=== PATIENT | female | born 1945 | race African-American/Black ===

== ENCOUNTER 2016-11-04 16:17 | Emergency (ER) | payer MEDICARE, MEDICAID ==
[~2016-11-04] VITALS: Ht 165.1 cm; Wt 60.0 kg
[~2016-11-04 16:17] MED LIST: ALEN70TA13; ASPI-292; ATAZ300C2; CALC-696; CHOL100022; EMTR1TAB4; LISI40TA4; METO25TA3; NORV1; OLAN10TA3; OMEG500C4; TEMA30CA5
[2016-11-04 16:23] VITALS: BP 120/90
== END 2016-11-04 19:34 | disposition home or self-care (01) ==
LOC: ER 16:18
DX: K64.4 Residual hemorrhoidal skin tags (principal); I10 Essential (primary) hypertension; Z20.6 Contact with and (suspected) exposure to human immunodeficiency virus [HIV]; Z88.0 Allergy status to penicillin
CPT/HCPCS: 99283

== ENCOUNTER 2016-12-14 07:25 | Emergency (ER) | payer MEDICARE, MEDICAID ==
[~2016-12-14] VITALS: Ht 160 cm; Wt 64.0 kg
[~2016-12-14 07:25] MED LIST changes: -ALEN70TA13; +ALEN70TA46; +ASPI-1236; -ASPI-292; +DESCOVY PO; +GABA-531 PO; +OLAN5TAB26 PO; +[UNRECOGNIZED DRUG - OTHER] PO
[2016-12-14 08:46] VITALS: BP 120/86
== END 2016-12-14 10:42 | disposition home or self-care (01) ==
LOC: ER 07:26
DX: K91.841 Postprocedural hemorrhage of a digestive system organ or structure following other procedure (principal); Y83.8 Other surgical procedures as the cause of abnormal reaction of the patient, or of later complication, without mention of misadventure at the time of the procedure; Y73.8 Miscellaneous gastroenterology and urology devices associated with adverse incidents, not elsewhere classified; Y92.098 Other place in other non-institutional residence as the place of occurrence of the external cause; I10 Essential (primary) hypertension; Z88.0 Allergy status to penicillin
CPT/HCPCS: 99283

== ENCOUNTER 2016-12-18 10:47 | Emergency (ER) | payer MEDICARE, MEDICAID ==
[~2016-12-18] VITALS: Ht 157.5 cm; Wt 50.0 kg
[2016-12-18 16:14] LABS: BASOPHILS % 0.9 % (0.0-2.0); EOSINOPHILS % 1.4 % (0.0-5.0); HEMATOCRIT. 32.4 % (36.0-48.0); HEMOGLOBIN. 10.1 g/dL (12.0-16.0); MEAN CORPUSCULAR HEMOGLOBIN 25.3 pg (28.0-32.0); MEAN CORPUSCULAR VOLUME 81.2 fL (81.0-99.0); MONOCYTES % 8.7 % (2.0-8.0); PLATELET 216 x1000/uL (130-400); RED BLOOD CELL COUNT 3.99 mill/uL (4.2-5.4); RED CELL DISTRIBUTION WIDTH 18.1 % (11.6-14.6)
[2016-12-18 16:25] LABS: CARBON DIOXIDE 28 mEq/L (21-32); CHLORIDE 108 mEq/L (98-107)
[2016-12-18 19:01] VITALS: BP 132/80
== END 2016-12-18 19:35 | disposition home or self-care (01) ==
LOC: ER 10:48
DX: K62.89 Other specified diseases of anus and rectum (principal); Z88.0 Allergy status to penicillin; I10 Essential (primary) hypertension; Z79.899 Other long term (current) drug therapy
CPT/HCPCS: 36415; 80048; 85025; 99284

== ENCOUNTER 2016-12-24 08:15 | Inpatient (IN) | payer MEDICARE, MEDICAID ==
[~2016-12-24] VITALS: Ht 165.1 cm; Wt 56.2 kg
[~2016-12-24 08:15] MED LIST changes: -ASPI-1236; +ASPI-1236 PO; -TEMA30CA5; +TEMA30CA5 PO
[2016-12-24] MEDS ORDERED: ACETAMINOPHEN 325MG TABLET PO ONE (08:30)
[2016-12-24 10:23] LABS: HEMOGLOBIN. 10.1 g/dL (12.0-16.0); MEAN CORPUSCULAR HEMOGLOBIN 25.6 pg (28.0-32.0); MEAN CORPUSCULAR VOLUME 81.1 fL (81.0-99.0); MEAN PLATELET VOLUME 7.9 fl (7.4-10.4); PLATELET 198 x1000/uL (130-400); RED BLOOD CELL COUNT 3.94 mill/uL (4.2-5.4); RED CELL DISTRIBUTION WIDTH 18.6 % (11.6-14.6)
[2016-12-24 10:37] LABS: CARBON DIOXIDE 29 mEq/L (21-32); CHLORIDE 108 mEq/L (98-107)
[2016-12-24 10:49] LABS: PLATELET ESTIMATE NORMAL
[2016-12-24] MEDS ORDERED: FUROSEMIDE 40MG/4ML VIAL IVP ONE (11:00)
[2016-12-24 15:40] VITALS: BP 124/82
[2016-12-24] MEDS ORDERED: DOCUSATE SODIUM 100MG CAPSULE PO PRN (16:45)
[2016-12-24] MEDS ORDERED: ONDANSETRON HCL 4MG/2ML VIAL IV PRN (16:45)
[2016-12-24] MEDS ORDERED: ACETAMINOPHEN 325MG TABLET PO PRN (16:45)
[2016-12-24] MEDS ORDERED: HYDROCODONE/ACETAMINOPHEN 5/325MG TABLET PO PRN (16:45)
[2016-12-24] MEDS ORDERED: GUAIFENESIN 200MG/10ML SUGAR FREE UDC PO PRN (16:45)
[2016-12-24] MEDS ORDERED: CLONIDINE 0.1MG TABLET PO PRN (16:45)
[2016-12-24 17:03] VITALS: BP 131/98
[2016-12-24] MEDS: FUROSEMIDE 40MG/4ML VIAL IV SCH (18:43)
[2016-12-24 20:00] VITALS: BP 127/103
[2016-12-25] VITALS: BP 122/98
[2016-12-25 04:00] VITALS: BP 127/103
[2016-12-25 06:56] LABS: BASOPHILS % 0.4 % (0.0-2.0); EOSINOPHILS % 1.5 % (0.0-5.0); HEMATOCRIT. 32.3 % (36.0-48.0); HEMOGLOBIN. 10.4 g/dL (12.0-16.0); LYMPHOCYTES % 40.1 % (20.0-50.0); MEAN CORPUSCULAR HEMOGLOBIN 25.9 pg (28.0-32.0); MEAN CORPUSCULAR VOLUME 80.4 fL (81.0-99.0); MEAN PLATELET VOLUME 7.9 fl (7.4-10.4); PLATELET 198 x1000/uL (130-400); RED BLOOD CELL COUNT 4.01 mill/uL (4.2-5.4)
[2016-12-25 08:06] LABS: CARBON DIOXIDE 32 mEq/L (21-32); CHLORIDE 105 mEq/L (98-107)
[2016-12-25 08:30] VITALS: BP 120/105
[2016-12-25] MEDS ORDERED: POTASSIUM CHLORIDE 20MEQ TABLET SR PO SCH (10:15)
[2016-12-25] MEDS: ASPIRIN 81MG EC TABLET PO SCH (10:39)
[2016-12-25] MEDS: AMLODIPINE 10MG TABLET PO SCH (10:39)
[2016-12-25] MEDS: FUROSEMIDE 40MG/4ML VIAL IV SCH (10:39)
[2016-12-25 12:00] VITALS: BP 118/96
[2016-12-25] MEDS ORDERED: DILTIAZEM HCL 5MG/ML 5ML VIAL IV SCH (13:30)
[2016-12-25 13:38] LABS: T4 FREE 1.47 ng/dL (0.76-1.46)
[2016-12-25] MEDS: DILTIAZEM HCL 125 MG in DEXT 5% WATER 100 ML IV SCH (14:25)
[2016-12-25] MEDS ORDERED: ALBUTEROL (0.083%) 2.5MG/3ML NEB HHN PRN (14:45)
[2016-12-25] MEDS ORDERED: MAGNESIUM 2 G PREMIX 50 ML IV NR (16:00)
[2016-12-25 18:13] LABS: HEPATITIS B SURFACE ANTIGEN NEGATIVE
[2016-12-25 18:41] LABS: HEPATITIS B CORE AB IGM NEGATIVE
[2016-12-25 18:42] LABS: HEPATITIS A AB IGM NEGATIVE (NEGATIVE)
[2016-12-25] MEDS: DILTIAZEM HCL 30MG TABLET PO SCH (19:01)
[2016-12-25 20:00] VITALS: BP 103/67
[2016-12-25] MEDS ORDERED: LORAZEPAM 2MG/ML CPJ IM PRN (21:00)
[2016-12-25 22:00] VITALS: BP 93/57
[2016-12-26] VITALS (12 sets, daily range): BP systolic 83–125; BP diastolic 53–82
[2016-12-26] MEDS ORDERED: LORAZEPAM 2MG/ML CPJ IV PRN (00:45)
[2016-12-26] MEDS: DILTIAZEM HCL 125 MG in DEXT 5% WATER 100 ML IV SCH (00:50)
[2016-12-26 03:22] LABS: CLARITY URINE CLEAR (CLEAR); COLOR URINE DARK YELLOW (YELLOW); GLUCOSE URINE NEGATIVE (NEGATIVE); KETONES URINE TRACE (NEGATIVE); LEUKOCYTE ESTERASE URINE 2+ (NEGATIVE); NITRITE URINE NEGATIVE (NEGATIVE); OCCULT BLOOD URINE NEGATIVE (NEGATIVE); PH URINE 5.5 (4.5-8.0); PROTEIN URINE 1+ (NEGATIVE); SPECIFIC GRAVITY URINE 1.026 (1.005-1.030)
[2016-12-26 03:41] LABS: *AMPHETAMINES SCREEN URINE NEGATIVE (NEGATIVE); *BARBITURATES SCREEN URINE NEGATIVE (NEGATIVE); *BENZODIAZEPINES SCREEN URINE PRESUMTIVE POSITIVE (NEGATIVE); *COCAINE SCREEN URINE PRESUMTIVE POSITIVE (NEGATIVE); CANNABINOID URINE SCREEN NEGATIVE (NEGATIVE); METHADONE URINE SCREEN NEGATIVE (NEGATIVE); OPIATES URINE SCREEN NEGATIVE (NEGATIVE); PHENCYCLIDINE URINE SCREEN NEGATIVE (NEGATIVE)
[2016-12-26 05:59] LABS: BASOPHILS % 0.3 % (0.0-2.0); EOSINOPHILS % 0.7 % (0.0-5.0); HEMATOCRIT. 31.3 % (36.0-48.0); HEMOGLOBIN. 9.9 g/dL (12.0-16.0); LYMPHOCYTES % 35.3 % (20.0-50.0); MEAN CORPUSCULAR HEMOGLOBIN 25.3 pg (28.0-32.0); MEAN CORPUSCULAR VOLUME 79.9 fL (81.0-99.0); MEAN PLATELET VOLUME 7.9 fl (7.4-10.4); MONOCYTES % 11.5 % (2.0-8.0); NEUTROPHILS % 52.2 % (40.0-76.0); PLATELET 184 x1000/uL (130-400); RED BLOOD CELL COUNT 3.92 mill/uL (4.2-5.4); RED CELL DISTRIBUTION WIDTH 17.8 % (11.6-14.6)
[2016-12-26] MEDS: DILTIAZEM HCL 30MG TABLET PO SCH ×2 (06:00)
[2016-12-26 06:46] LABS: CHLORIDE 106 mEq/L (98-107)
[2016-12-26 07:04] LABS: CARBON DIOXIDE 28 mEq/L (21-32); TROPONIN I 0.06 ng/mL (0.00-0.04)
[2016-12-26] MEDS: AMLODIPINE 10MG TABLET PO SCH (09:00)
[2016-12-26] MEDS: ASPIRIN 81MG EC TABLET PO SCH (09:32)
[2016-12-26] MEDS: FUROSEMIDE 40MG/4ML VIAL IV SCH (09:32)
[2016-12-26] MEDS ORDERED: DILTIAZEM HCL 125 MG in DEXT 5% WATER 100 ML IV SCH (09:41)
[2016-12-26] MEDS ORDERED: POTASSIUM CHLORIDE 20MEQ TABLET SR PO SCH (09:45)
[2016-12-26] MEDS: MAGNESIUM OXIDE 400MG TABLET PO SCH ×2 (10:07→17:11)
[2016-12-26] MEDS: DILTIAZEM HCL 60MG TABLET PO SCH ×2 (11:41→17:12)
[2016-12-26] MEDS: ZOLPIDEM TARTRATE 5MG TABLET PO PRN (23:02)
[2016-12-27] VITALS (15 sets, daily range): BP systolic 98–138; BP diastolic 34–96
[2016-12-27] MEDS: DILTIAZEM HCL 60MG TABLET PO SCH ×2 (00:02→06:20)
[2016-12-27 07:20] LABS: CARBON DIOXIDE 31 mEq/L (21-32); CHLORIDE 106 mEq/L (98-107)
[2016-12-27 08:09] LABS: BASOPHILS % 0.5 % (0.0-2.0); EOSINOPHILS % 1.1 % (0.0-5.0); HEMATOCRIT. 31.3 % (36.0-48.0); HEMOGLOBIN. 10.2 g/dL (12.0-16.0); LYMPHOCYTES % 36.2 % (20.0-50.0); MEAN CORPUSCULAR HEMOGLOBIN 26.8 pg (28.0-32.0); MEAN CORPUSCULAR VOLUME 82.1 fL (81.0-99.0); MONOCYTES % 13.3 % (2.0-8.0); NEUTROPHILS % 48.9 % (40.0-76.0); PLATELET 188 x1000/uL (130-400); RED BLOOD CELL COUNT 3.81 mill/uL (4.2-5.4); RED CELL DISTRIBUTION WIDTH 18.2 % (11.6-14.6)
[2016-12-27] MEDS: MAGNESIUM OXIDE 400MG TABLET PO SCH ×2 (08:46→17:05)
[2016-12-27] MEDS: FUROSEMIDE 40MG/4ML VIAL IV SCH (08:46)
[2016-12-27] MEDS: ASPIRIN 81MG EC TABLET PO SCH (08:46)
[2016-12-27] MEDS: AMLODIPINE 10MG TABLET PO SCH (08:48)
[2016-12-27 09:06] LABS: ABSOLUTE EOSINOPHILS 0.1 x10E3/uL (0.0-0.4); ABSOLUTE LYMPHOCYTES 2.2 x10E3/uL (0.7-3.1); ABSOLUTE MONOCYTES 0.7 x10E3/uL (0.1-0.9); ABSOLUTE NEUTROPHILS 3.3 x10E3/uL (1.4-7.0); BASOPHILS 0 % (.); HEMATOCRIT 32.3 % (34.0-46.6); HEMOGLOBIN 9.9 g/dL (11.1-15.9); IMMATURE GRANULOCYTES 0 % (.); LYMPHOCYTES 35 % (.); MEAN CORPUSCULAR HEMOGLOBIN 25.6 pg (26.6-33.0); MEAN CORPUSCULAR HGB CONC. 30.7 g/dL (31.5-35.7); MEAN CORPUSCULAR VOLUME 84 fL (79-97); MONOCYTES 11 % (.); NEUTROPHILS 53 % (.); PLATELETS 204 x10E3/uL (150-379); RBC 3.87 x10E6/uL (3.77-5.28); RED CELL DISTRIBUTION WIDTH 17.8 % (12.3-15.4); WBC 6.2 x10E3/uL (3.4-10.8)
[2016-12-27] MEDS ORDERED: POTASSIUM CHLORIDE 20MEQ TABLET SR PO NR (11:45)
[2016-12-27] MEDS: LOSARTAN POTASSIUM 25 MG TABLET PO SCH ×2 (12:21→21:26)
[2016-12-27 13:07] LABS: ABSOLUTE CD 3 1892 /uL (622-2402); ABSOLUTE CD 4 HELPER 682 /uL (359-1519); ABSOLUTE CD 8 SUPPRESSOR 1232 /uL (109-897); CD4/CD8 RATIO 0.55 (0.92-3.72)
[2016-12-27] MEDS: POTASSIUM CHLORIDE 20MEQ TABLET SR PO SCH (17:05)
[2016-12-27] MEDS: ENOXAPARIN 40MG/0.4ML SYR SUBCUT SCH (21:25)
[2016-12-27] MEDS: DILTIAZEM HCL 120MG CAPSULE SR 12HR PO SCH (21:26)
[2016-12-27] MEDS: ZOLPIDEM TARTRATE 5MG TABLET PO PRN (23:09)
[2016-12-28] VITALS (11 sets, daily range): BP systolic 87–154; BP diastolic 53–100
[2016-12-28] MEDS ORDERED: LOPERAMIDE HCL 2MG CAPSULE PO PRN (07:30)
[2016-12-28] MEDS: DILTIAZEM HCL 120MG CAPSULE SR 12HR PO SCH (08:13)
[2016-12-28] MEDS: LOSARTAN POTASSIUM 25 MG TABLET PO SCH (08:13)
[2016-12-28] MEDS: POTASSIUM CHLORIDE 20MEQ TABLET SR PO SCH (08:13)
[2016-12-28] MEDS: ASPIRIN 81MG EC TABLET PO SCH (08:13)
[2016-12-28] MEDS: ENOXAPARIN 40MG/0.4ML SYR SUBCUT SCH (08:14)
[2016-12-28] MEDS: MAGNESIUM OXIDE 400MG TABLET PO SCH (08:14)
[2016-12-28] MEDS ORDERED: FUROSEMIDE 40MG TABLET PO SCH (09:00)
[2016-12-28] MEDS ORDERED: POTASSIUM CHLORIDE 20MEQ TABLET SR PO NR (11:00)
[2016-12-28] MEDS ORDERED: DILT120C11 PO (12:10)
[2016-12-28] MEDS ORDERED: LOSA25TA3 PO (12:11)
[2016-12-28] MEDS ORDERED: MAGN400T27 PO (12:12)
[2016-12-28] MEDS ORDERED: DILT120C11 MT (12:14)
[2016-12-28] MEDS ORDERED: FURO-151 PO (12:14)
[2016-12-28] MEDS ORDERED: KDUR10 PO (12:15)
[2016-12-28] MEDS ORDERED: RIVA10TA PO (12:16)
== END 2016-12-28 14:49 | disposition home or self-care (01) | DRG 291 ==
LOC: ER 08:17 → 5WST 11:53 → EDBEDREQ 11:54 → ENRESERV 12:00 → 3WST 12-25 14:00
PROVIDERS: ADMIT Hospitalist; ATTEND Hospitalist
DX: I11.0 Hypertensive heart disease with heart failure (principal); J96.00 Acute respiratory failure, unspecified whether with hypoxia or hypercapnia; E43 Unspecified severe protein-calorie malnutrition; I48.92 Unspecified atrial flutter; I50.23 Acute on chronic systolic (congestive) heart failure; I42.0 Dilated cardiomyopathy; B18.2 Chronic viral hepatitis C; E83.42 Hypomagnesemia; E87.6 Hypokalemia; F14.10 Cocaine abuse, uncomplicated; F17.210 Nicotine dependence, cigarettes, uncomplicated; W18.39XA Other fall on same level, initial encounter; I48.0 Paroxysmal atrial fibrillation; I49.3 Ventricular premature depolarization; J44.9 Chronic obstructive pulmonary disease, unspecified; Z82.49 Family history of ischemic heart disease and other diseases of the circulatory system; Z91.19 Patient's noncompliance with other medical treatment and regimen; Y93.89 Activity, other specified; Y92.89 Other specified places as the place of occurrence of the external cause; Y99.8 Other external cause status; Z88.0 Allergy status to penicillin; Z79.899 Other long term (current) drug therapy
CPT/HCPCS: 36415; 71010; 73630; 80048; 80053; 80305; 81001; 83735; 83880; 84439; 84443; 84481; 84484; 85025; 86359; 86360; 86705; 86709; 86803; 87186; 87340; 93005; 93306; 93970; 96374; 99285; J1650; J1940; J2060; J3475; J3490; J7060

== ENCOUNTER 2016-12-31 00:40 | Inpatient (IN) | payer MEDICARE, MEDICAID ==
[2016-12-31] VITALS (7 sets, daily range): BP systolic 89–107; BP diastolic 65–92
[~2016-12-31] VITALS: Ht 170.2 cm; Wt 56.4 kg
[~2016-12-31 00:40] MED LIST changes: +DILT120C11 MT; +FURO-151 PO; +KDUR10 PO; +LOSA25TA3 PO; +MAGN400T27 PO; -METO25TA3; +RIVA10TA PO
[2016-12-31] MEDS ORDERED: MORPHINE SULFATE 4 MG/ML CPJ (NOT FOR IM USE) IV STA (01:30)
[2016-12-31] MEDS ORDERED: ONDANSETRON HCL 4MG/2ML VIAL IV STA (01:30)
[2016-12-31 01:51] LABS: EOSINOPHILS % 0.9 % (0.0-5.0); HEMOGLOBIN. 9.5 g/dL (12.0-16.0); LYMPHOCYTES % 30.3 % (20.0-50.0); MEAN CORPUSCULAR HEMOGLOBIN 25.6 pg (28.0-32.0); MEAN CORPUSCULAR VOLUME 80.7 fL (81.0-99.0); MEAN PLATELET VOLUME 7.9 fl (7.4-10.4); MONOCYTES % 6.8 % (2.0-8.0); PLATELET 162 x1000/uL (130-400); RED BLOOD CELL COUNT 3.72 mill/uL (4.2-5.4); RED CELL DISTRIBUTION WIDTH 17.9 % (11.6-14.6)
[2016-12-31 01:58] LABS: INR 1.2
[2016-12-31 02:07] LABS: CARBON DIOXIDE 27 mEq/L (21-32); CHLORIDE 110 mEq/L (98-107); TROPONIN I 0.04 ng/mL (0.00-0.04)
[2016-12-31] MEDS ORDERED: NITROGLYCERIN OINT 1GM/INCH UDPKT TD STA (04:27)
[2016-12-31] MEDS ORDERED: ASPIRIN 81MG TABLET PO STA (04:27)
[2016-12-31] MEDS ORDERED: FUROSEMIDE 40MG/4ML VIAL IV STA (04:27)
[2016-12-31 04:44] LABS: CLARITY URINE CLEAR (CLEAR); COLOR URINE YELLOW (YELLOW); GLUCOSE URINE NEGATIVE (NEGATIVE); KETONES URINE NEGATIVE (NEGATIVE); LEUKOCYTE ESTERASE URINE 2+ (NEGATIVE); NITRITE URINE NEGATIVE (NEGATIVE); OCCULT BLOOD URINE NEGATIVE (NEGATIVE); PH URINE 5.5 (4.5-8.0); PROTEIN URINE 2+ (NEGATIVE)
[2016-12-31] MEDS ORDERED: ACETAMINOPHEN 325MG TABLET PO PRN (09:45)
[2016-12-31] MEDS ORDERED: DOCUSATE SODIUM 100MG CAPSULE PO PRN (09:45)
[2016-12-31] MEDS ORDERED: ONDANSETRON HCL 4MG/2ML VIAL IV PRN (09:45)
[2016-12-31] MEDS ORDERED: IPRATROPIUM BROMIDE (0.02%) 0.5MG/2.5ML NEB HHN PRN (09:45)
[2016-12-31] MEDS: OMEPRAZOLE 20MG CAPSULE EXTENDED RELEASE PO SCH (11:00)
[2016-12-31] MEDS ORDERED: MORPHINE SULFATE 2 MG/ML CPJ (NOT FOR IM USE) IV PRN (12:00)
[2016-12-31] MEDS ORDERED: IOHEXOL-350 100 ML BOTTLE ONE (14:32)
[2016-12-31] MEDS ORDERED: SODIUM CHLORIDE 0.9% 10ML VIAL ONE (14:32)
[2016-12-31 14:47] LABS: *AMPHETAMINES SCREEN URINE NEGATIVE (NEGATIVE); *BARBITURATES SCREEN URINE NEGATIVE (NEGATIVE); *BENZODIAZEPINES SCREEN URINE NEGATIVE (NEGATIVE); *COCAINE SCREEN URINE PRESUMTIVE POSITIVE (NEGATIVE); CANNABINOID URINE SCREEN NEGATIVE (NEGATIVE); METHADONE URINE SCREEN NEGATIVE (NEGATIVE); OPIATES URINE SCREEN PRESUMTIVE POSITIVE (NEGATIVE); PHENCYCLIDINE URINE SCREEN NEGATIVE (NEGATIVE)
[2016-12-31] MEDS ORDERED: DIGOXIN 500MCG/2ML AMP IV NR (15:30)
[2016-12-31] MEDS: ENOXAPARIN 60MG/0.6ML SYR SUBCUT SCH (16:45)
[2016-12-31] MEDS: FUROSEMIDE 40MG/4ML VIAL IV SCH (16:45)
[2016-12-31] MEDS: DILTIAZEM HCL 30MG TABLET PO SCH ×2 (17:00→23:23)
[2016-12-31] MEDS: ZOLPIDEM TARTRATE 5MG TABLET PO PRN (23:36)
[2017-01-01] VITALS (9 sets, daily range): BP systolic 69–106; BP diastolic 40–78
[2017-01-01] MEDS: DILTIAZEM HCL 30MG TABLET PO SCH ×3 (05:56→17:06)
[2017-01-01 06:54] LABS: BASOPHILS % 0.3 % (0.0-2.0); EOSINOPHILS % 1.4 % (0.0-5.0); HEMOGLOBIN. 9.6 g/dL (12.0-16.0); LYMPHOCYTES % 17.4 % (20.0-50.0); MEAN CORPUSCULAR HEMOGLOBIN 25.7 pg (28.0-32.0); MEAN CORPUSCULAR VOLUME 80.2 fL (81.0-99.0); MEAN PLATELET VOLUME 8.2 fl (7.4-10.4); MONOCYTES % 3.3 % (2.0-8.0); NEUTROPHILS % 77.6 % (40.0-76.0); PLATELET 165 x1000/uL (130-400); RED BLOOD CELL COUNT 3.74 mill/uL (4.2-5.4); RED CELL DISTRIBUTION WIDTH 17.1 % (11.6-14.6)
[2017-01-01 07:13] LABS: CARBON DIOXIDE 28 mEq/L (21-32); CHLORIDE 103 mEq/L (98-107)
[2017-01-01] MEDS: ENOXAPARIN 60MG/0.6ML SYR SUBCUT SCH ×2 (07:46→17:06)
[2017-01-01] MEDS: OMEPRAZOLE 20MG CAPSULE EXTENDED RELEASE PO SCH (07:46)
[2017-01-01] MEDS: FUROSEMIDE 40MG/4ML VIAL IV SCH ×2 (08:14→16:53)
[2017-01-01] MEDS: IPRATROPIUM BROMIDE (0.02%) 0.5MG/2.5ML NEB HHN SCH ×3 (09:31→21:22)
[2017-01-01] MEDS ORDERED: POTASSIUM CHLORIDE 20MEQ TABLET SR PO NR (10:15)
[2017-01-01] MEDS ORDERED: MAGNESIUM 2 G PREMIX 50 ML IV SCH (11:00)
[2017-01-01] MEDS ORDERED: DIPHENHYDRAMINE 25MG CAPSULE PO PRN (21:45)
[2017-01-02] VITALS: BP 95/73
[2017-01-02] MEDS: IPRATROPIUM BROMIDE (0.02%) 0.5MG/2.5ML NEB HHN SCH ×4 (00:31→20:20)
[2017-01-02] MEDS: ZOLPIDEM TARTRATE 5MG TABLET PO PRN ×2 (00:39→23:03)
[2017-01-02 04:00] VITALS: BP 113/67
[2017-01-02] MEDS: DILTIAZEM HCL 30MG TABLET PO SCH ×4 (05:31→17:13)
[2017-01-02] MEDS: ENOXAPARIN 60MG/0.6ML SYR SUBCUT SCH ×2 (05:43→17:12)
[2017-01-02 06:05] LABS: BASOPHILS % 0.2 % (0.0-2.0); EOSINOPHILS % 2.1 % (0.0-5.0); HEMATOCRIT. 29.6 % (36.0-48.0); HEMOGLOBIN. 9.5 g/dL (12.0-16.0); LYMPHOCYTES % 24.8 % (20.0-50.0); MEAN CORPUSCULAR HEMOGLOBIN 25.4 pg (28.0-32.0); MEAN CORPUSCULAR VOLUME 79.2 fL (81.0-99.0); MEAN PLATELET VOLUME 8.2 fl (7.4-10.4); MONOCYTES % 6.3 % (2.0-8.0); NEUTROPHILS % 66.6 % (40.0-76.0); PLATELET 170 x1000/uL (130-400); RED BLOOD CELL COUNT 3.73 mill/uL (4.2-5.4); RED CELL DISTRIBUTION WIDTH 16.7 % (11.6-14.6)
[2017-01-02 08:00] VITALS: BP 114/92
[2017-01-02] MEDS: OMEPRAZOLE 20MG CAPSULE EXTENDED RELEASE PO SCH (08:38)
[2017-01-02] MEDS: FUROSEMIDE 40MG/4ML VIAL IV SCH ×2 (09:45→17:12)
[2017-01-02] MEDS ORDERED: POTASSIUM CHLORIDE 20MEQ TABLET SR PO NR (09:45)
[2017-01-02] MEDS ORDERED: MAGNESIUM 1 G PREMIX 100 ML IV NR (11:30)
[2017-01-02 12:00] VITALS: BP 112/89
[2017-01-02 16:00] VITALS: BP 114/58
[2017-01-02 20:00] VITALS: BP 104/81
[2017-01-03] VITALS: BP 111/88
[2017-01-03 00:09] VITALS: BP 111/88
[2017-01-03] MEDS: DILTIAZEM HCL 30MG TABLET PO SCH ×2 (00:19→06:13)
[2017-01-03] MEDS: IPRATROPIUM BROMIDE (0.02%) 0.5MG/2.5ML NEB HHN SCH ×2 (02:14→08:55)
[2017-01-03 04:00] VITALS: BP 120/87
[2017-01-03] MEDS: ENOXAPARIN 60MG/0.6ML SYR SUBCUT SCH (06:13)
[2017-01-03 06:25] LABS: BASOPHILS % 0.5 % (0.0-2.0); EOSINOPHILS % 1.7 % (0.0-5.0); HEMATOCRIT. 30.8 % (36.0-48.0); HEMOGLOBIN. 9.9 g/dL (12.0-16.0); LYMPHOCYTES % 31.4 % (20.0-50.0); MEAN CORPUSCULAR HEMOGLOBIN 25.6 pg (28.0-32.0); MEAN CORPUSCULAR VOLUME 79.5 fL (81.0-99.0); MEAN PLATELET VOLUME 8.2 fl (7.4-10.4); MONOCYTES % 8.8 % (2.0-8.0); NEUTROPHILS % 57.6 % (40.0-76.0); PLATELET 173 x1000/uL (130-400); RED BLOOD CELL COUNT 3.87 mill/uL (4.2-5.4); RED CELL DISTRIBUTION WIDTH 17.1 % (11.6-14.6)
[2017-01-03 07:19] LABS: CARBON DIOXIDE 30 mEq/L (21-32); CHLORIDE 103 mEq/L (98-107)
[2017-01-03 08:00] VITALS: BP 120/84
[2017-01-03] MEDS: FUROSEMIDE 40MG/4ML VIAL IV SCH (08:37)
[2017-01-03] MEDS ORDERED: FAMOTIDINE 20MG TABLET PO SCH (09:00)
[2017-01-03] MEDS ORDERED: POTASSIUM CHLORIDE 20MEQ TABLET SR PO NR (10:45)
[2017-01-03 11:40] VITALS: BP 120/84
[2017-01-03 12:00] VITALS: BP 125/95
== END 2017-01-03 14:50 | disposition home health service (06) | DRG 291 ==
LOC: ER 00:45 → 5EST 05:51 → SUPCPDRO 09:00 → ENRESERV 10:02 → 7WST 01-01 15:22
PROVIDERS: ADMIT Family Medicine Adult Medicine; ATTEND Family Medicine Adult Medicine
DX: I11.0 Hypertensive heart disease with heart failure (principal); E43 Unspecified severe protein-calorie malnutrition; J96.00 Acute respiratory failure, unspecified whether with hypoxia or hypercapnia; J44.1 Chronic obstructive pulmonary disease with (acute) exacerbation; I48.92 Unspecified atrial flutter; J84.9 Interstitial pulmonary disease, unspecified; R18.8 Other ascites; Z68.1 Body mass index [BMI] 19.9 or less, adult; I50.23 Acute on chronic systolic (congestive) heart failure; I42.0 Dilated cardiomyopathy; I48.0 Paroxysmal atrial fibrillation; I49.3 Ventricular premature depolarization; B19.20 Unspecified viral hepatitis C without hepatic coma; F14.90 Cocaine use, unspecified, uncomplicated; E78.5 Hyperlipidemia, unspecified; E83.42 Hypomagnesemia; E87.6 Hypokalemia; F10.10 Alcohol abuse, uncomplicated; F17.210 Nicotine dependence, cigarettes, uncomplicated; I34.0 Nonrheumatic mitral (valve) insufficiency; K80.20 Calculus of gallbladder without cholecystitis without obstruction; N28.1 Cyst of kidney, acquired; Z91.19 Patient's noncompliance with other medical treatment and regimen; Z71.6 Tobacco abuse counseling; Z88.0 Allergy status to penicillin; Z79.899 Other long term (current) drug therapy; Z21 Asymptomatic human immunodeficiency virus [HIV] infection status
CPT/HCPCS: 36415; 71010; 71275; 74177; 80048; 80053; 80305; 81001; 83690; 83735; 83880; 84443; 84484; 85025; 85610; 85730; 87086; 87493; 93005; 93970; 94640; 96374; 96375; 97162; 99285; A4216; G0482; J1160; J1650; J1940; J2270; J2405; J3475; J7040; J7050; Q0163; Q9967

== ENCOUNTER 2017-01-08 18:47 | Inpatient (IN) | payer MEDICARE, MEDICAID ==
[~2017-01-08] VITALS: Ht 170.2 cm; Wt 59.4 kg
[~2017-01-08 18:47] MED LIST changes: -DESCOVY PO; -[UNRECOGNIZED DRUG - OTHER] PO
[2017-01-08 18:51] VITALS: BP 98/68
[2017-01-08] MEDS ORDERED: NON FORMULARY PATIENT HOME MED EA XX SCH (19:15)
[2017-01-08] MEDS ORDERED: IPRATROPIUM/ALBUTEROL 0.5-3(2.5)MG/3ML NEB HHN PRN (19:15)
[2017-01-08] MEDS ORDERED: ALENDRONATE SODIUM 35MG TABLET PO SCH (19:15)
[2017-01-08] MEDS ORDERED: ONDANSETRON HCL 4MG/2ML VIAL IV PRN (19:45)
[2017-01-08] MEDS ORDERED: HYDROCODONE/ACETAMINOPHEN 5/325MG TABLET PO PRN (19:45)
[2017-01-08] MEDS ORDERED: ACETAMINOPHEN 325MG TABLET PO PRN (19:45)
[2017-01-08 20:00] VITALS: BP 106/67
[2017-01-08 20:24] VITALS: BP 106/67
[2017-01-08] MEDS: LOSARTAN POTASSIUM 25 MG TABLET PO SCH (21:00)
[2017-01-08] MEDS: TEMAZEPAM 15MG CAPSULE PO PRN (23:39)
[2017-01-09 01:02] VITALS: BP 97/77
[2017-01-09 04:00] VITALS: BP 106/86
[2017-01-09 06:16] LABS: BASOPHILS % 0.6 % (0.0-2.0); EOSINOPHILS % 1.4 % (0.0-5.0); HEMATOCRIT. 29.1 % (36.0-48.0); HEMOGLOBIN. 9.4 g/dL (12.0-16.0); LYMPHOCYTES % 28.1 % (20.0-50.0); MEAN CORPUSCULAR HEMOGLOBIN 25.4 pg (28.0-32.0); MEAN CORPUSCULAR VOLUME 79.1 fL (81.0-99.0); MONOCYTES % 7.8 % (2.0-8.0); NEUTROPHILS % 62.1 % (40.0-76.0); PLATELET 201 x1000/uL (130-400); RED BLOOD CELL COUNT 3.68 mill/uL (4.2-5.4); RED CELL DISTRIBUTION WIDTH 16.4 % (11.6-14.6)
[2017-01-09 07:53] VITALS: BP 97/71
[2017-01-09 08:03] LABS: CARBON DIOXIDE 32 mEq/L (21-32); CHLORIDE 103 mEq/L (98-107)
[2017-01-09] MEDS: DILTIAZEM HCL 120MG CAPSULE CD 24HR PO SCH ×2 (08:48→11:55)
[2017-01-09] MEDS: LOSARTAN POTASSIUM 25 MG TABLET PO SCH ×2 (08:49→20:38)
[2017-01-09] MEDS: RITONAVIR 100 MG TABLET PO SCH ×2 (09:00→09:50)
[2017-01-09] MEDS: EMTRICITABINE 200MG CAPSULE PO SCH ×2 (09:00→09:48)
[2017-01-09] MEDS: TENOFOVIR 300MG TABLET PO SCH ×2 (09:00→09:51)
[2017-01-09] MEDS ORDERED: FUROSEMIDE 40MG/4ML VIAL IVP SCH (09:00)
[2017-01-09] MEDS: ATAZANAVIR SULFATE 150MG CAPSULE PO SCH ×2 (09:00→09:47)
[2017-01-09] MEDS ORDERED: POTASSIUM CHLORIDE 10MEQ TABLET SR PO NR (09:15)
[2017-01-09 09:22] LABS: INR 1.3; PROTHROMBIN TIME 13.7 sec
[2017-01-09] MEDS: ASPIRIN 81MG TABLET PO SCH (09:44)
[2017-01-09] MEDS: GABAPENTIN 300MG CAPSULE PO SCH ×3 (09:44→18:17)
[2017-01-09] MEDS: PREDNISONE 20MG TABLET PO SCH (09:45)
[2017-01-09] MEDS: FISH OIL/OMEGA-3 FATTY ACIDS 1000MG CAPSULE PO SCH (09:45)
[2017-01-09] MEDS: CHOLECALCIFEROL (D3) 1000 UNIT TABLET PO SCH (09:45)
[2017-01-09] MEDS: MAGNESIUM OXIDE 400MG TABLET PO SCH ×2 (09:45→18:17)
[2017-01-09] MEDS: POTASSIUM CHLORIDE 10MEQ TABLET SR PO SCH (09:46)
[2017-01-09] MEDS: CALCIUM CARBONATE 1250MG TABLET (500MG ELEMENTAL CALCIUM) PO SCH (09:47)
[2017-01-09] MEDS: OLANZAPINE 10MG TABLET PO SCH (09:47)
[2017-01-09 11:57] VITALS: BP 105/81
[2017-01-09] MEDS ORDERED: DOLU50TA PO (12:31)
[2017-01-09] MEDS ORDERED: EMTR1TAB12 PO (12:31)
[2017-01-09] MEDS ORDERED: DIGOXIN 500MCG/2ML AMP IV NR ×2 (13:00→19:00)
[2017-01-09] MEDS: OMEPRAZOLE 20MG CAPSULE EXTENDED RELEASE PO SCH (13:32)
[2017-01-09] MEDS: ENOXAPARIN 60MG/0.6ML SYR SUBCUT SCH (13:32)
[2017-01-09 14:57] LABS: *AMPHETAMINES SCREEN URINE NEGATIVE (NEGATIVE); *BARBITURATES SCREEN URINE NEGATIVE (NEGATIVE); *BENZODIAZEPINES SCREEN URINE NEGATIVE (NEGATIVE); *COCAINE SCREEN URINE NEGATIVE (NEGATIVE); CANNABINOID URINE SCREEN NEGATIVE (NEGATIVE); METHADONE URINE SCREEN NEGATIVE (NEGATIVE); OPIATES URINE SCREEN NEGATIVE (NEGATIVE); PHENCYCLIDINE URINE SCREEN NEGATIVE (NEGATIVE)
[2017-01-09 16:00] VITALS: BP 116/88
[2017-01-09] MEDS: Emtricitabine/Tenofov Alafenam (Descovy 200-25 mg Tablet PO SCH (18:16)
[2017-01-09] MEDS: DOLUTEGRAVIR SODIUM 50 MG PO SCH (18:16)
[2017-01-09] MEDS: FUROSEMIDE 40MG/4ML VIAL IVP SCH (18:21)
[2017-01-09 20:00] VITALS: BP 115/50
[2017-01-10] VITALS: BP 113/95
[2017-01-10] MEDS: TEMAZEPAM 15MG CAPSULE PO PRN (00:12)
[2017-01-10] MEDS ORDERED: DIGOXIN 500MCG/2ML AMP IV NR (01:00)
[2017-01-10] MEDS: ENOXAPARIN 60MG/0.6ML SYR SUBCUT SCH ×2 (01:02→14:00)
[2017-01-10 04:00] VITALS: BP 126/90
[2017-01-10] MEDS: FUROSEMIDE 40MG/4ML VIAL IVP SCH (06:16)
[2017-01-10] MEDS: OMEPRAZOLE 20MG CAPSULE EXTENDED RELEASE PO SCH (06:17)
[2017-01-10 08:00] VITALS: BP 128/87
[2017-01-10 08:29] LABS: BASOPHILS % 0.7 % (0.0-2.0); EOSINOPHILS % 0.7 % (0.0-5.0); HEMATOCRIT. 32.2 % (36.0-48.0); HEMOGLOBIN. 10.4 g/dL (12.0-16.0); LYMPHOCYTES % 32.5 % (20.0-50.0); MEAN CORPUSCULAR HEMOGLOBIN 25.4 pg (28.0-32.0); MEAN CORPUSCULAR VOLUME 79.1 fL (81.0-99.0); MEAN PLATELET VOLUME 8.3 fl (7.4-10.4); MONOCYTES % 9.3 % (2.0-8.0); NEUTROPHILS % 56.8 % (40.0-76.0); PLATELET 227 x1000/uL (130-400); RED BLOOD CELL COUNT 4.08 mill/uL (4.2-5.4); RED CELL DISTRIBUTION WIDTH 16.3 % (11.6-14.6)
[2017-01-10 08:43] LABS: CARBON DIOXIDE 35 mEq/L (21-32); CHLORIDE 98 mEq/L (98-107)
[2017-01-10] MEDS: DOLUTEGRAVIR SODIUM 50 MG PO SCH (08:52)
[2017-01-10] MEDS: Emtricitabine/Tenofov Alafenam (Descovy 200-25 mg Tablet PO SCH (08:52)
[2017-01-10] MEDS: MAGNESIUM OXIDE 400MG TABLET PO SCH ×2 (08:53→17:30)
[2017-01-10] MEDS: FISH OIL/OMEGA-3 FATTY ACIDS 1000MG CAPSULE PO SCH (08:53)
[2017-01-10] MEDS: CALCIUM CARBONATE 1250MG TABLET (500MG ELEMENTAL CALCIUM) PO SCH (08:53)
[2017-01-10] MEDS: OLANZAPINE 10MG TABLET PO SCH (08:53)
[2017-01-10] MEDS: CHOLECALCIFEROL (D3) 1000 UNIT TABLET PO SCH (08:54)
[2017-01-10] MEDS: PREDNISONE 20MG TABLET PO SCH (08:54)
[2017-01-10] MEDS: POTASSIUM CHLORIDE 10MEQ TABLET SR PO SCH (08:54)
[2017-01-10] MEDS: LOSARTAN POTASSIUM 25 MG TABLET PO SCH ×2 (08:54→21:00)
[2017-01-10] MEDS: GABAPENTIN 300MG CAPSULE PO SCH ×3 (08:54→17:29)
[2017-01-10] MEDS: ASPIRIN 81MG TABLET PO SCH (08:54)
[2017-01-10] MEDS: DILTIAZEM HCL 60MG TABLET PO SCH ×2 (09:05→17:31)
[2017-01-10 12:00] VITALS: BP 120/84
[2017-01-10] MEDS ORDERED: FUROSEMIDE 40MG/4ML VIAL IVP NR (13:30)
[2017-01-10 16:00] VITALS: BP 124/80
[2017-01-10] MEDS: SPIRONOLACTONE 25MG TABLET PO SCH (17:32)
[2017-01-10] MEDS ORDERED: DIGOXIN 125MCG TABLET PO SCH (18:00)
[2017-01-10 20:00] VITALS: BP 108/51
[2017-01-10] MEDS ORDERED: MAGNESIUM 2 G PREMIX 50 ML IV NR (23:00)
[2017-01-11] VITALS: BP 110/80
[2017-01-11] MEDS: DILTIAZEM HCL 60MG TABLET PO SCH ×2 (01:00→09:00)
[2017-01-11] MEDS: TEMAZEPAM 15MG CAPSULE PO PRN (01:08)
[2017-01-11] MEDS: ENOXAPARIN 60MG/0.6ML SYR SUBCUT SCH (01:18)
[2017-01-11 04:00] VITALS: BP 134/92
[2017-01-11 08:00] VITALS: BP 117/76
[2017-01-11] MEDS: DOLUTEGRAVIR SODIUM 50 MG PO SCH (08:57)
[2017-01-11] MEDS: Emtricitabine/Tenofov Alafenam (Descovy 200-25 mg Tablet PO SCH (08:57)
[2017-01-11] MEDS: GABAPENTIN 300MG CAPSULE PO SCH ×2 (08:58→12:47)
[2017-01-11] MEDS: POTASSIUM CHLORIDE 10MEQ TABLET SR PO SCH (08:58)
[2017-01-11] MEDS: FISH OIL/OMEGA-3 FATTY ACIDS 1000MG CAPSULE PO SCH (08:58)
[2017-01-11] MEDS: CHOLECALCIFEROL (D3) 1000 UNIT TABLET PO SCH (08:58)
[2017-01-11] MEDS: OLANZAPINE 10MG TABLET PO SCH (08:58)
[2017-01-11] MEDS: CALCIUM CARBONATE 1250MG TABLET (500MG ELEMENTAL CALCIUM) PO SCH (08:58)
[2017-01-11] MEDS: LOSARTAN POTASSIUM 25 MG TABLET PO SCH (08:59)
[2017-01-11] MEDS: ASPIRIN 81MG TABLET PO SCH (08:59)
[2017-01-11] MEDS: SPIRONOLACTONE 25MG TABLET PO SCH (08:59)
[2017-01-11] MEDS: PREDNISONE 20MG TABLET PO SCH (08:59)
[2017-01-11] MEDS ORDERED: FUROSEMIDE 40MG/4ML VIAL IVP SCH (09:00)
[2017-01-11] MEDS: MAGNESIUM OXIDE 400MG TABLET PO SCH (09:00)
[2017-01-11] MEDS ORDERED: FAMOTIDINE 20MG TABLET PO SCH (09:00)
[2017-01-11 12:00] VITALS: BP 130/65
[2017-01-11 15:35] VITALS: BP 117/76
== END 2017-01-11 16:50 | disposition home or self-care (01) | DRG 291 ==
LOC: 6WST 18:47
PROVIDERS: ADMIT Family Medicine Adult Medicine; ATTEND Family Medicine Adult Medicine
DX: I11.0 Hypertensive heart disease with heart failure (principal); J96.00 Acute respiratory failure, unspecified whether with hypoxia or hypercapnia; E43 Unspecified severe protein-calorie malnutrition; J44.1 Chronic obstructive pulmonary disease with (acute) exacerbation; I48.1 Persistent atrial fibrillation; I48.92 Unspecified atrial flutter; R18.8 Other ascites; J84.9 Interstitial pulmonary disease, unspecified; I50.23 Acute on chronic systolic (congestive) heart failure; I42.0 Dilated cardiomyopathy; F14.90 Cocaine use, unspecified, uncomplicated; E87.6 Hypokalemia; D50.9 Iron deficiency anemia, unspecified; B19.20 Unspecified viral hepatitis C without hepatic coma; F17.210 Nicotine dependence, cigarettes, uncomplicated; I48.0 Paroxysmal atrial fibrillation; F19.10 Other psychoactive substance abuse, uncomplicated; I49.3 Ventricular premature depolarization; K80.20 Calculus of gallbladder without cholecystitis without obstruction; Z91.19 Patient's noncompliance with other medical treatment and regimen; Z88.0 Allergy status to penicillin; Z79.82 Long term (current) use of aspirin; Z79.899 Other long term (current) drug therapy; Z68.20 Body mass index [BMI] 20.0-20.9, adult
CPT/HCPCS: 36415; 71010; 76705; 80048; 80162; 80305; 83735; 85025; 85610; 93005; 93970; J1160; J1940; J3475; J7050; J7512

== ENCOUNTER 2017-01-23 06:25 | Inpatient (IN) | payer MEDICARE, MEDICAID ==
[~2017-01-23] VITALS: Ht 170.2 cm; Wt 63.0 kg
[~2017-01-23 06:25] MED LIST changes: -ALEN70TA46; +ALEN70TA46 PO; +ATAZ300C; -ATAZ300C2; +DOLU50TA PO; +EMTR1TAB12 PO; -OLAN10TA3; +OLAN10TA3 PO
[2017-01-23] MEDS ORDERED: ASPIRIN 81MG TABLET PO ONE (07:15)
[2017-01-23] MEDS ORDERED: DILTIAZEM HCL 120MG CAPSULE CD 24HR PO ONE (07:30)
[2017-01-23] MEDS ORDERED: DILTIAZEM HCL 5MG/ML 5ML VIAL IV ONE (07:30)
[2017-01-23 07:40] LABS: BASOPHILS % 0.9 % (0.0-2.0); EOSINOPHILS % 1.2 % (0.0-5.0); HEMATOCRIT. 29.6 % (36.0-48.0); HEMOGLOBIN. 9.4 g/dL (12.0-16.0); LYMPHOCYTES % 25.8 % (20.0-50.0); MEAN CORPUSCULAR VOLUME 78.4 fL (81.0-99.0); MEAN PLATELET VOLUME 7.1 fl (7.4-10.4); MONOCYTES % 9.3 % (2.0-8.0); NEUTROPHILS % 62.8 % (40.0-76.0); PLATELET 197 x1000/uL (130-400); RED BLOOD CELL COUNT 3.78 mill/uL (4.2-5.4); RED CELL DISTRIBUTION WIDTH 15.9 % (11.6-14.6)
[2017-01-23 07:46] LABS: INR 2.1; PARTIAL THROMBOPLASTIN TIME 39.2 sec (24.0-34.0); PROTHROMBIN TIME 21.5 sec
[2017-01-23 07:54] LABS: CARBON DIOXIDE 25 mEq/L (21-32); CHLORIDE 106 mEq/L (98-107); ETHANOL BLOOD < 10 mg/dL; TROPONIN I 0.03 ng/mL (0.00-0.04)
[2017-01-23] MEDS ORDERED: KETOROLAC 30MG/ML VIAL IV NR (11:15)
[2017-01-23 13:31] LABS: *AMPHETAMINES SCREEN URINE NEGATIVE (NEGATIVE); *BARBITURATES SCREEN URINE NEGATIVE (NEGATIVE); *BENZODIAZEPINES SCREEN URINE NEGATIVE (NEGATIVE); *COCAINE SCREEN URINE PRESUMTIVE POSITIVE (NEGATIVE); CANNABINOID URINE SCREEN NEGATIVE (NEGATIVE); METHADONE URINE SCREEN NEGATIVE (NEGATIVE); OPIATES URINE SCREEN NEGATIVE (NEGATIVE); PHENCYCLIDINE URINE SCREEN NEGATIVE (NEGATIVE)
[2017-01-23] MEDS ORDERED: IPRATROPIUM/ALBUTEROL 0.5-3(2.5)MG/3ML NEB HHN SCH (14:00)
[2017-01-23] MEDS ORDERED: ENOXAPARIN 40MG/0.4ML SYR SUBCUT SCH (14:00)
[2017-01-23] MEDS ORDERED: ONDANSETRON HCL 4MG/2ML VIAL IV PRN (14:00)
[2017-01-23] MEDS ORDERED: NON FORMULARY PATIENT HOME MED EA XX SCH ×2 (15:45)
[2017-01-23] MEDS: IPRATROPIUM/ALBUTEROL 0.5-3(2.5)MG/3ML NEB HHN SCH ×2 (15:49→21:30)
[2017-01-23] MEDS: ASPIRIN 81MG TABLET PO SCH (17:32)
[2017-01-23] MEDS: LOSARTAN POTASSIUM 25 MG TABLET PO SCH (17:32)
[2017-01-23] MEDS ORDERED: OLANZAPINE 10MG TABLET PO SCH (20:00)
[2017-01-23] MEDS: OLANZAPINE 10MG TABLET PO SCH ×2 (21:00→22:25)
[2017-01-23] MEDS: DILTIAZEM HCL 180MG CAPSULE CD 24HR PO SCH ×2 (21:00→22:25)
[2017-01-23 21:39] LABS: CREATINE KINASE MB FRACTION 1.5 ng/mL (0.5-3.6); TROPONIN I 0.02 ng/mL (0.00-0.04)
[2017-01-23] MEDS: TEMAZEPAM 15MG CAPSULE PO PRN (22:25)
[2017-01-24] MEDS: IPRATROPIUM/ALBUTEROL 0.5-3(2.5)MG/3ML NEB HHN SCH ×6 (00:30→20:48)
[2017-01-24] MEDS: TEMAZEPAM 15MG CAPSULE PO PRN (01:36)
[2017-01-24] MEDS: ACETAMINOPHEN 325MG TABLET PO PRN ×2 (05:17→08:50)
[2017-01-24 06:30] LABS: BASOPHILS % 0.4 % (0.0-2.0); EOSINOPHILS % 1.8 % (0.0-5.0); HEMATOCRIT. 29.6 % (36.0-48.0); HEMOGLOBIN. 9.5 g/dL (12.0-16.0); LYMPHOCYTES % 31.8 % (20.0-50.0); MEAN CORPUSCULAR HEMOGLOBIN 25.1 pg (28.0-32.0); MEAN CORPUSCULAR VOLUME 77.9 fL (81.0-99.0); MEAN PLATELET VOLUME 7.6 fl (7.4-10.4); MONOCYTES % 9.7 % (2.0-8.0); NEUTROPHILS % 56.3 % (40.0-76.0); PLATELET 196 x1000/uL (130-400); RED CELL DISTRIBUTION WIDTH 16.1 % (11.6-14.6)
[2017-01-24 07:22] LABS: CARBON DIOXIDE 26 mEq/L (21-32); CHLORIDE 108 mEq/L (98-107); TROPONIN I 0.03 ng/mL (0.00-0.04)
[2017-01-24 07:25] LABS: CREATINE KINASE MB FRACTION 1.2 ng/mL (0.5-3.6)
[2017-01-24] MEDS ORDERED: RIVAROXABAN 20 MG TABLET PO SCH (08:00)
[2017-01-24] MEDS: TIVICAY 50 MG PO SCH (08:20)
[2017-01-24] MEDS: DESCOVY PO SCH (08:20)
[2017-01-24] MEDS: OLANZAPINE 10MG TABLET PO SCH (08:21)
[2017-01-24] MEDS: CHOLECALCIFEROL (D3) 1000 UNIT TABLET PO SCH (08:21)
[2017-01-24] MEDS: CALCIUM CARBONATE 1250MG TABLET (500MG ELEMENTAL CALCIUM) PO SCH (08:21)
[2017-01-24] MEDS: LISINOPRIL 10MG TABLET PO SCH (08:22)
[2017-01-24] MEDS: ASPIRIN 81MG TABLET PO SCH (08:31)
[2017-01-24] MEDS: LOSARTAN POTASSIUM 25 MG TABLET PO SCH ×2 (08:31→17:52)
[2017-01-24] MEDS: POTASSIUM CHLORIDE 10MEQ TABLET SR PO SCH (08:31)
[2017-01-24] MEDS: FUROSEMIDE 40MG/4ML VIAL IVP SCH (08:44)
[2017-01-24] MEDS ORDERED: DILTIAZEM HCL 120MG CAPSULE SR 12HR PO SCH (09:00)
[2017-01-24] MEDS: DILTIAZEM HCL 180MG CAPSULE CD 24HR PO SCH ×2 (10:46→20:45)
[2017-01-25] MEDS: IPRATROPIUM/ALBUTEROL 0.5-3(2.5)MG/3ML NEB HHN SCH ×6 (00:18→20:29)
[2017-01-25] MEDS: DILTIAZEM HCL 180MG CAPSULE CD 24HR PO SCH ×3 (08:26→21:56)
[2017-01-25] MEDS: LISINOPRIL 10MG TABLET PO SCH (08:29)
[2017-01-25] MEDS: LOSARTAN POTASSIUM 25 MG TABLET PO SCH ×2 (08:30→17:02)
[2017-01-25] MEDS: CHOLECALCIFEROL (D3) 1000 UNIT TABLET PO SCH (08:55)
[2017-01-25] MEDS: FUROSEMIDE 40MG/4ML VIAL IVP SCH ×2 (08:55→17:04)
[2017-01-25] MEDS: OLANZAPINE 10MG TABLET PO SCH (08:56)
[2017-01-25] MEDS: ASPIRIN 81MG TABLET PO SCH (08:56)
[2017-01-25] MEDS: POTASSIUM CHLORIDE 10MEQ TABLET SR PO SCH (08:57)
[2017-01-25] MEDS: DESCOVY PO SCH (08:57)
[2017-01-25] MEDS: CALCIUM CARBONATE 1250MG TABLET (500MG ELEMENTAL CALCIUM) PO SCH (08:57)
[2017-01-25] MEDS: TIVICAY 50 MG PO SCH (08:57)
[2017-01-25] MEDS ORDERED: METOPROLOL TARTRATE 25MG TABLET PO SCH (09:30)
[2017-01-25 11:08] LABS: BG BASE EXCESS 2.8 mmol/L (-2.0-2.0); BG CARBOXYHEMOGLOBIN 0.3 % (0.5-1.5); BG DEOXYHEMOGLOBIN 7.1 % (0.0-5.0); BG FRACTION INSPIRED OXYGEN 21; BG HCO3 ACT 26.3 mmol/L (22.0-26.0); BG METHEMOGLOBIN 0.4 % (0.0-1.5); BG OXYGEN SATURATION 92.8 % (92.0-98.5); BG OXYHEMOGLOBIN 92.2 % (94.0-97.0); BG PCO2 36.6 mmHg (35.0-45.0); BG PH 7.475 (7.350-7.450); BG PO2 67.3 mmHg (75.0-100.0); BG SAMPLE SITE RIGHT BRACHIAL; BG TOTAL HEMOGLOBIN 10.4 g/dL (12.0-18.0); BG VENT MODE ROOM AIR
[2017-01-25] MEDS: METOPROLOL TARTRATE 25MG TABLET PO SCH ×3 (12:55→21:55)
[2017-01-25] MEDS ORDERED: POTASSIUM CHLORIDE 20MEQ TABLET SR PO SCH (13:15)
[2017-01-25] MEDS ORDERED: DIGOXIN 500MCG/2ML AMP IV PRN (13:30)
[2017-01-25] MEDS: TEMAZEPAM 15MG CAPSULE PO PRN (23:02)
[2017-01-26] MEDS: IPRATROPIUM/ALBUTEROL 0.5-3(2.5)MG/3ML NEB HHN SCH ×5 (00:08→16:22)
[2017-01-26 06:35] LABS: BASOPHILS % 0.8 % (0.0-2.0); EOSINOPHILS % 1.8 % (0.0-5.0); HEMOGLOBIN. 9.7 g/dL (12.0-16.0); LYMPHOCYTES % 30.1 % (20.0-50.0); MEAN CORPUSCULAR HEMOGLOBIN 25.1 pg (28.0-32.0); MEAN CORPUSCULAR VOLUME 77.7 fL (81.0-99.0); MEAN PLATELET VOLUME 7.5 fl (7.4-10.4); MONOCYTES % 9.3 % (2.0-8.0); PLATELET 199 x1000/uL (130-400); RED BLOOD CELL COUNT 3.86 mill/uL (4.2-5.4); RED CELL DISTRIBUTION WIDTH 16.4 % (11.6-14.6)
[2017-01-26 07:11] LABS: CARBON DIOXIDE 28 mEq/L (21-32); CHLORIDE 105 mEq/L (98-107); HDL CHOLESTEROL 47 mg/dL (40-59); LDL CHOLESTEROL 41 mg/dL (5-100)
[2017-01-26] MEDS: TIVICAY 50 MG PO SCH (08:05)
[2017-01-26] MEDS: DESCOVY PO SCH (08:05)
[2017-01-26] MEDS: DILTIAZEM HCL 180MG CAPSULE CD 24HR PO SCH (08:06)
[2017-01-26] MEDS: POTASSIUM CHLORIDE 10MEQ TABLET SR PO SCH (08:06)
[2017-01-26] MEDS: ASPIRIN 81MG TABLET PO SCH (08:06)
[2017-01-26] MEDS: CALCIUM CARBONATE 1250MG TABLET (500MG ELEMENTAL CALCIUM) PO SCH (08:06)
[2017-01-26] MEDS: LISINOPRIL 10MG TABLET PO SCH (08:07)
[2017-01-26] MEDS: METOPROLOL TARTRATE 25MG TABLET PO SCH (08:07)
[2017-01-26] MEDS: OLANZAPINE 10MG TABLET PO SCH (08:07)
[2017-01-26] MEDS: CHOLECALCIFEROL (D3) 1000 UNIT TABLET PO SCH (08:07)
[2017-01-26] MEDS: LOSARTAN POTASSIUM 25 MG TABLET PO SCH ×2 (08:08→16:34)
[2017-01-26] MEDS: FUROSEMIDE 40MG/4ML VIAL IVP SCH ×2 (08:08→16:34)
[2017-01-26] MEDS ORDERED: MAGNESIUM 2 G PREMIX 50 ML IV NR (15:00)
[2017-01-26 16:44] VITALS: BP 109/58
[2017-04-26] MEDS ORDERED: [UNRECOGNIZED DRUG - OTHER] PO (16:14)
[2017-04-26] MEDS ORDERED: CEPH-569 PO (16:14)
[2017-05-27] MEDS ORDERED: METO-539 PO (08:30)
[2017-05-27] MEDS ORDERED: LISI10TA5 PO (08:30)
[2017-05-27] MEDS ORDERED: SPIR25TA4 PO (08:30)
== END 2017-01-26 17:45 | disposition home or self-care (01) | DRG 308 ==
LOC: ER 06:25 → EDBEDREQ 12:12 → 6WST 12:22 → EDBEDREQ 12:25 → ENRESERV 13:16
PROVIDERS: ADMIT Internal Medicine Geriatric Medicine; ATTEND Internal Medicine Geriatric Medicine
DX: I48.92 Unspecified atrial flutter (principal); I50.23 Acute on chronic systolic (congestive) heart failure; E44.0 Moderate protein-calorie malnutrition; I42.0 Dilated cardiomyopathy; J44.1 Chronic obstructive pulmonary disease with (acute) exacerbation; I25.5 Ischemic cardiomyopathy; E83.42 Hypomagnesemia; D63.8 Anemia in other chronic diseases classified elsewhere; I11.0 Hypertensive heart disease with heart failure; I48.1 Persistent atrial fibrillation; I48.2 Chronic atrial fibrillation; I49.3 Ventricular premature depolarization; K43.9 Ventral hernia without obstruction or gangrene; M79.604 Pain in right leg; I45.0 Right fascicular block; D64.9 Anemia, unspecified; F14.10 Cocaine abuse, uncomplicated; F17.210 Nicotine dependence, cigarettes, uncomplicated; Z79.899 Other long term (current) drug therapy; Z91.19 Patient's noncompliance with other medical treatment and regimen; Z85.43 Personal history of malignant neoplasm of ovary; Z88.0 Allergy status to penicillin; Z79.82 Long term (current) use of aspirin; Z90.49 Acquired absence of other specified parts of digestive tract; Z68.21 Body mass index [BMI] 21.0-21.9, adult; B19.20 Unspecified viral hepatitis C without hepatic coma; M10.9 Gout, unspecified; M19.90 Unspecified osteoarthritis, unspecified site
CPT/HCPCS: 36415; 36600; 70450; 71010; 72125; 80048; 80053; 80061; 80305; 82375; 82553; 82805; 83735; 83880; 84443; 84484; 84550; 85025; 85379; 85610; 85730; 87086; 93005; 93306; 93970; 94640; 94664; 96374; 97162; 97530; 99291; 99406; G0482; J1885; J1940; J2405; J3475; J3490; J7040; J7620

== ENCOUNTER 2017-02-03 08:19 | Inpatient (IN) | payer MEDICARE, MEDICAID ==
[~2017-02-03] VITALS: Ht 160 cm; Wt 68.6 kg
[2017-02-03 08:56] LABS: BASOPHILS % 0.6 % (0.0-2.0); EOSINOPHILS % 1.5 % (0.0-5.0); HEMATOCRIT. 31.9 % (36.0-48.0); HEMOGLOBIN. 10.1 g/dL (12.0-16.0); LYMPHOCYTES % 29.1 % (20.0-50.0); MEAN CORPUSCULAR HEMOGLOBIN 24.6 pg (28.0-32.0); MEAN CORPUSCULAR VOLUME 77.9 fL (81.0-99.0); MEAN PLATELET VOLUME 7.3 fl (7.4-10.4); NEUTROPHILS % 58.8 % (40.0-76.0); PLATELET 221 x1000/uL (130-400); RED CELL DISTRIBUTION WIDTH 15.9 % (11.6-14.6)
[2017-02-03 09:13] LABS: CARBON DIOXIDE 28 mEq/L (21-32); CHLORIDE 109 mEq/L (98-107); TROPONIN I 0.07 ng/mL (0.00-0.04)
[2017-02-03] MEDS ORDERED: FUROSEMIDE 40MG/4ML VIAL IVP ONE (09:30)
[2017-02-03] MEDS ORDERED: DOCUSATE SODIUM 100MG CAPSULE PO PRN (12:30)
[2017-02-03] MEDS ORDERED: MAGNESIUM/ALUMINUM HYDROXIDE/SIMETHICONE 30ML UDC PO PRN (12:30)
[2017-02-03] MEDS ORDERED: ACETAMINOPHEN 325MG TABLET PO PRN (12:30)
[2017-02-03] MEDS ORDERED: HYDROCODONE/ACETAMINOPHEN 5/325MG TABLET PO PRN (12:30)
[2017-02-03] MEDS ORDERED: NA PHOS,M-B/NA PHOS,DI-BA ENEMA 118ML PR PRN (12:30)
[2017-02-03] MEDS ORDERED: ONDANSETRON HCL 4MG/2ML VIAL IV PRN (12:30)
[2017-02-03] MEDS ORDERED: IPRATROPIUM/ALBUTEROL 0.5-3(2.5)MG/3ML NEB INH PRN (12:30)
[2017-02-03] MEDS ORDERED: HYDROMORPHONE HCL/PF 2MG/ML CPJ IV PRN (12:30)
[2017-02-03] MEDS ORDERED: ENOXAPARIN 40MG/0.4ML SYR SUBCUT SCH (13:00)
[2017-02-03] MEDS: FUROSEMIDE 40MG/4ML VIAL IVP SCH (13:04)
[2017-02-03 13:56] LABS: INR 1.4; PROTHROMBIN TIME 14.9 sec (9.4-11.6)
[2017-02-03 15:37] LABS: TROPONIN I 0.05 ng/mL (0.00-0.04)
[2017-02-03] MEDS ORDERED: DILTIAZEM HCL 180MG CAPSULE CD 24HR PO SCH (15:45)
[2017-02-03] MEDS ORDERED: DILT180C54 PO (15:52)
[2017-02-03] MEDS: GABAPENTIN 300MG CAPSULE PO SCH (18:15)
[2017-02-03] MEDS: METHYLPREDNISOLONE SOD SUCC 125 MG/2 ML VIAL IV SCH ×2 (18:16→22:19)
[2017-02-03] MEDS: OLANZAPINE 10MG TABLET PO SCH (20:16)
[2017-02-03] MEDS: IPRATROPIUM/ALBUTEROL 0.5-3(2.5)MG/3ML NEB HHN SCH (20:59)
[2017-02-03 22:53] LABS: *AMPHETAMINES SCREEN URINE NEGATIVE (NEGATIVE); *BARBITURATES SCREEN URINE NEGATIVE (NEGATIVE); *BENZODIAZEPINES SCREEN URINE NEGATIVE (NEGATIVE); *COCAINE SCREEN URINE PRESUMTIVE POSITIVE (NEGATIVE); CANNABINOID URINE SCREEN NEGATIVE (NEGATIVE); METHADONE URINE SCREEN NEGATIVE (NEGATIVE); OPIATES URINE SCREEN NEGATIVE (NEGATIVE); PHENCYCLIDINE URINE SCREEN NEGATIVE (NEGATIVE)
[2017-02-04] MEDS: IPRATROPIUM/ALBUTEROL 0.5-3(2.5)MG/3ML NEB HHN SCH ×7 (00:24→23:54)
[2017-02-04] MEDS: METHYLPREDNISOLONE SOD SUCC 125 MG/2 ML VIAL IV SCH (06:02)
[2017-02-04 07:06] LABS: BASOPHILS % 0.3 % (0.0-2.0); HEMATOCRIT. 29.6 % (36.0-48.0); HEMOGLOBIN. 9.4 g/dL (12.0-16.0); LYMPHOCYTES % 11.2 % (20.0-50.0); MEAN CORPUSCULAR HEMOGLOBIN 24.7 pg (28.0-32.0); MEAN CORPUSCULAR VOLUME 77.8 fL (81.0-99.0); MEAN PLATELET VOLUME 7.6 fl (7.4-10.4); MONOCYTES % 1.6 % (2.0-8.0); NEUTROPHILS % 86.9 % (40.0-76.0); PLATELET 197 x1000/uL (130-400); RED CELL DISTRIBUTION WIDTH 16.3 % (11.6-14.6)
[2017-02-04 07:21] LABS: CARBON DIOXIDE 28 mEq/L (21-32); CHLORIDE 105 mEq/L (98-107); HDL CHOLESTEROL 57 mg/dL (40-59); LDL CHOLESTEROL 46 mg/dL (5-100)
[2017-02-04 07:26] LABS: T4 FREE 1.28 ng/dL (0.76-1.46)
[2017-02-04] MEDS: GABAPENTIN 300MG CAPSULE PO SCH ×3 (08:52→18:22)
[2017-02-04] MEDS: ASPIRIN 81MG TABLET PO SCH (08:52)
[2017-02-04] MEDS ORDERED: FUROSEMIDE 40MG/4ML VIAL IV SCH (09:00)
[2017-02-04] MEDS ORDERED: MEDICATION NOT ON FORMULARY EA (Dolutegravir Sodium (Tivicay) 50 MG) PO SCH (09:00)
[2017-02-04] MEDS ORDERED: DILTIAZEM HCL 120MG CAPSULE CD 24HR PO SCH (09:00)
[2017-02-04] MEDS: FUROSEMIDE 40MG/4ML VIAL IVP SCH (09:01)
[2017-02-04] MEDS: LOSARTAN POTASSIUM 25 MG TABLET PO SCH (15:09)
[2017-02-04] MEDS ORDERED: DESCOVY PO (15:16)
[2017-02-04] MEDS ORDERED: RIVAROXABAN 15 MG TABLET PO SCH (17:00)
[2017-02-04] MEDS: METHYLPREDNISOLONE SOD SUCC 40 MG/ML VIAL IV SCH (18:22)
[2017-02-04] MEDS: OLANZAPINE 10MG TABLET PO SCH (20:47)
[2017-02-04] MEDS: CARVEDILOL 3.125 MG TABLET PO SCH (20:47)
[2017-02-05] MEDS: IPRATROPIUM/ALBUTEROL 0.5-3(2.5)MG/3ML NEB HHN SCH ×6 (04:00→20:25)
[2017-02-05] MEDS: CLONIDINE 0.1MG TABLET PO PRN (06:11)
[2017-02-05] MEDS: METHYLPREDNISOLONE SOD SUCC 40 MG/ML VIAL IV SCH ×2 (06:12→18:47)
[2017-02-05] MEDS: LORAZEPAM 2MG/ML CPJ IV PRN ×2 (06:12→13:42)
[2017-02-05] MEDS ORDERED: NON FORMULARY PATIENT HOME MED EA PO SCH (09:00)
[2017-02-05] MEDS: LOSARTAN POTASSIUM 25 MG TABLET PO SCH (09:38)
[2017-02-05] MEDS: FUROSEMIDE 40MG/4ML VIAL IVP SCH (09:38)
[2017-02-05] MEDS: GABAPENTIN 300MG CAPSULE PO SCH ×3 (09:38→17:09)
[2017-02-05] MEDS: ASPIRIN 81MG TABLET PO SCH (09:38)
[2017-02-05] MEDS: CARVEDILOL 3.125 MG TABLET PO SCH ×2 (09:38→21:18)
[2017-02-05] MEDS: GUAIFENESIN 200MG/10ML SUGAR FREE UDC PO PRN (21:18)
[2017-02-05] MEDS: OLANZAPINE 10MG TABLET PO SCH (21:19)
[2017-02-06] MEDS: IPRATROPIUM/ALBUTEROL 0.5-3(2.5)MG/3ML NEB HHN SCH ×7 (00:01→23:05)
[2017-02-06] MEDS: GUAIFENESIN 200MG/10ML SUGAR FREE UDC PO PRN (05:05)
[2017-02-06] MEDS: METHYLPREDNISOLONE SOD SUCC 40 MG/ML VIAL IV SCH ×2 (05:05→18:05)
[2017-02-06] MEDS: FUROSEMIDE 40MG/4ML VIAL IVP SCH (08:47)
[2017-02-06] MEDS: ASPIRIN 81MG TABLET PO SCH (08:48)
[2017-02-06] MEDS: GABAPENTIN 300MG CAPSULE PO SCH ×3 (08:48→18:05)
[2017-02-06] MEDS: CARVEDILOL 3.125 MG TABLET PO SCH ×2 (08:48→21:21)
[2017-02-06] MEDS: LOSARTAN POTASSIUM 25 MG TABLET PO SCH (08:48)
[2017-02-06] MEDS: OLANZAPINE 10MG TABLET PO SCH (21:20)
[2017-02-07] MEDS: GUAIFENESIN 200MG/10ML SUGAR FREE UDC PO PRN (01:33)
[2017-02-07] MEDS: LORAZEPAM 2MG/ML CPJ IV PRN ×2 (01:33→22:52)
[2017-02-07] MEDS: IPRATROPIUM/ALBUTEROL 0.5-3(2.5)MG/3ML NEB HHN SCH ×5 (03:39→20:09)
[2017-02-07] MEDS: METHYLPREDNISOLONE SOD SUCC 40 MG/ML VIAL IV SCH ×2 (06:55→17:04)
[2017-02-07] MEDS: LOSARTAN POTASSIUM 25 MG TABLET PO SCH (08:28)
[2017-02-07] MEDS: ASPIRIN 81MG TABLET PO SCH (08:28)
[2017-02-07] MEDS: FUROSEMIDE 40MG/4ML VIAL IVP SCH (08:28)
[2017-02-07] MEDS: GABAPENTIN 300MG CAPSULE PO SCH ×3 (08:29→17:04)
[2017-02-07] MEDS: CARVEDILOL 3.125 MG TABLET PO SCH ×2 (08:29→21:35)
[2017-02-07] MEDS: OLANZAPINE 10MG TABLET PO SCH (21:34)
[2017-02-08] MEDS: IPRATROPIUM/ALBUTEROL 0.5-3(2.5)MG/3ML NEB HHN SCH ×6 (00:19→20:25)
[2017-02-08] MEDS: METHYLPREDNISOLONE SOD SUCC 40 MG/ML VIAL IV SCH ×2 (05:03→17:12)
[2017-02-08] MEDS: GABAPENTIN 300MG CAPSULE PO SCH ×3 (08:56→17:12)
[2017-02-08] MEDS: ASPIRIN 81MG TABLET PO SCH (08:56)
[2017-02-08] MEDS: LOSARTAN POTASSIUM 25 MG TABLET PO SCH (08:57)
[2017-02-08] MEDS: CARVEDILOL 3.125 MG TABLET PO SCH ×2 (08:57→20:39)
[2017-02-08] MEDS: FUROSEMIDE 40MG/4ML VIAL IVP SCH (08:57)
[2017-02-08] MEDS: CLONIDINE 0.1MG TABLET PO PRN (17:12)
[2017-02-08] MEDS: OLANZAPINE 10MG TABLET PO SCH (20:37)
[2017-02-09] MEDS: IPRATROPIUM/ALBUTEROL 0.5-3(2.5)MG/3ML NEB HHN SCH ×3 (00:26→09:03)
[2017-02-09] MEDS: GUAIFENESIN 200MG/10ML SUGAR FREE UDC PO PRN (02:39)
[2017-02-09] MEDS: METHYLPREDNISOLONE SOD SUCC 40 MG/ML VIAL IV SCH (05:51)
[2017-02-09 06:25] LABS: BASOPHILS % 0.2 % (0.0-2.0); HEMATOCRIT. 32.4 % (36.0-48.0); HEMOGLOBIN. 10.3 g/dL (12.0-16.0); MEAN CORPUSCULAR HEMOGLOBIN 24.5 pg (28.0-32.0); MEAN CORPUSCULAR VOLUME 77.2 fL (81.0-99.0); MONOCYTES % 7.5 % (2.0-8.0); NEUTROPHILS % 81.3 % (40.0-76.0); PLATELET 178 x1000/uL (130-400); RED BLOOD CELL COUNT 4.19 mill/uL (4.2-5.4)
[2017-02-09 06:39] LABS: CARBON DIOXIDE 31 mEq/L (21-32); CHLORIDE 102 mEq/L (98-107)
[2017-02-09] MEDS: FUROSEMIDE 40MG/4ML VIAL IVP SCH (09:34)
[2017-02-09] MEDS: CARVEDILOL 3.125 MG TABLET PO SCH (09:35)
[2017-02-09] MEDS: ASPIRIN 81MG TABLET PO SCH (09:35)
[2017-02-09] MEDS: GABAPENTIN 300MG CAPSULE PO SCH (09:35)
[2017-02-09] MEDS: LOSARTAN POTASSIUM 25 MG TABLET PO SCH (09:35)
[2017-02-09 09:59] VITALS: BP 144/73
[2017-04-26] MEDS ORDERED: [UNRECOGNIZED DRUG - OTHER] PO (16:14)
[2017-04-26] MEDS ORDERED: CEPH-569 PO (16:14)
[2017-05-27] MEDS ORDERED: LISI10TA5 PO (08:30)
[2017-05-27] MEDS ORDERED: METO-539 PO (08:30)
[2017-05-27] MEDS ORDERED: SPIR25TA4 PO (08:30)
== END 2017-02-09 11:30 | disposition home or self-care (01) | DRG 291 ==
LOC: ER 08:33 → 5WST 09:32 → EDBEDREQ 09:36 → ENRESERV 11:15
PROVIDERS: ADMIT Internal Medicine; ATTEND Internal Medicine
DX: I11.0 Hypertensive heart disease with heart failure (principal); J96.00 Acute respiratory failure, unspecified whether with hypoxia or hypercapnia; E43 Unspecified severe protein-calorie malnutrition; I48.92 Unspecified atrial flutter; I42.0 Dilated cardiomyopathy; D64.9 Anemia, unspecified; I48.91 Unspecified atrial fibrillation; J44.1 Chronic obstructive pulmonary disease with (acute) exacerbation; I50.23 Acute on chronic systolic (congestive) heart failure; B19.20 Unspecified viral hepatitis C without hepatic coma; F14.10 Cocaine abuse, uncomplicated; F17.210 Nicotine dependence, cigarettes, uncomplicated; G47.00 Insomnia, unspecified; Z79.899 Other long term (current) drug therapy; Z91.14 Patient's other noncompliance with medication regimen; Z88.0 Allergy status to penicillin; Z68.26 Body mass index [BMI] 26.0-26.9, adult
CPT/HCPCS: 36415; 71010; 80048; 80053; 80061; 80305; 83880; 84439; 84443; 84484; 85025; 85610; 93005; 93306; 94620; 94640; 94664; 96374; 99285; J1170; J1642; J1650; J1940; J2060; J2920; J2930; J7620

== ENCOUNTER 2017-02-13 | Emergency (ER) | payer MEDICARE, MEDICAID ==
[~2017-02-13] VITALS: Ht 170.2 cm; Wt 57.0 kg
[~2017-02-13] MED LIST changes: -ATAZ300C; -CALC-696; -CHOL100022; +DESCOVY PO; +DILT180C54 PO; -EMTR1TAB12 PO; -EMTR1TAB4; -FURO-151 PO; -KDUR10 PO; -LISI40TA4; -LOSA25TA3 PO; -MAGN400T27 PO; -NORV1; -OLAN5TAB26 PO; -OMEG500C4; -TEMA30CA5 PO
[2017-02-13] MEDS ORDERED: FUROSEMIDE 40MG TABLET PO ONE (03:30)
[2017-02-13 04:22] VITALS: BP 111/71
== END 2017-02-13 04:32 | disposition home or self-care (01) ==
LOC: ER
DX: I11.0 Hypertensive heart disease with heart failure (principal); I50.9 Heart failure, unspecified; Z88.0 Allergy status to penicillin; Z79.01 Long term (current) use of anticoagulants; Z79.82 Long term (current) use of aspirin
CPT/HCPCS: 71010; 93005; 99284

== ENCOUNTER 2017-02-16 07:27 | Inpatient (IN) | payer MEDICARE, MEDICAID ==
[~2017-02-16] VITALS: Ht 160 cm; Wt 63.0 kg
[2017-02-16] MEDS ORDERED: ASPIRIN 81MG TABLET PO STA (07:49)
[2017-02-16] MEDS ORDERED: NITROGLYCERIN OINT 1GM/INCH UDPKT TD STA (07:49)
[2017-02-16] MEDS ORDERED: HYDROCODONE/ACETAMINOPHEN 5/325MG TABLET PO ONE (08:00)
[2017-02-16 08:11] LABS: HEMATOCRIT. 31.7 % (36.0-48.0); HEMOGLOBIN. 10.2 g/dL (12.0-16.0); MEAN CORPUSCULAR HEMOGLOBIN 24.8 pg (28.0-32.0); MEAN CORPUSCULAR VOLUME 77.3 fL (81.0-99.0); MEAN PLATELET VOLUME 8.5 fl (7.4-10.4); PLATELET 169 x1000/uL (130-400); RED CELL DISTRIBUTION WIDTH 16.5 % (11.6-14.6)
[2017-02-16] MEDS ORDERED: ONDANSETRON HCL 4MG/2ML VIAL IV ONE (08:15)
[2017-02-16] MEDS ORDERED: FUROSEMIDE 20MG/2ML VIAL IVP ONE (08:15)
[2017-02-16 08:20] LABS: INR 1.2; PROTHROMBIN TIME 12.1 sec (9.4-11.6)
[2017-02-16 08:22] LABS: CARBON DIOXIDE 32 mEq/L (21-32); CHLORIDE 105 mEq/L (98-107)
[2017-02-16 08:29] LABS: CREATINE KINASE 41 IU/L (26-192); TROPONIN I 0.03 ng/mL (0.00-0.04)
[2017-02-16 08:30] LABS: PLATELET ESTIMATE NORMAL
[2017-02-16] MEDS ORDERED: POTASSIUM CHLORIDE 20MEQ TABLET SR PO ONE (08:30)
[2017-02-16 08:34] LABS: CREATINE KINASE MB FRACTION 0.9 ng/mL (0.5-3.6)
[2017-02-16] MEDS ORDERED: LEVOFLOXACIN 500MG PREMIX 100 ML IV ONE (10:00)
[2017-02-16] MEDS ORDERED: IPRATROPIUM/ALBUTEROL 0.5-3(2.5)MG/3ML NEB INH PRN (11:45)
[2017-02-16] MEDS ORDERED: ACETAMINOPHEN 325MG TABLET PO PRN (11:45)
[2017-02-16] MEDS ORDERED: ONDANSETRON HCL 4MG/2ML VIAL IV PRN (11:45)
[2017-02-16] MEDS ORDERED: DIPHENHYDRAMINE 50MG/ML VIAL IV PRN (11:45)
[2017-02-16] MEDS ORDERED: HYDROCODONE/ACETAMINOPHEN 5/325MG TABLET PO PRN (11:45)
[2017-02-16] MEDS ORDERED: CLONIDINE 0.1MG TABLET PO PRN (11:45)
[2017-02-16 14:00] VITALS: BP 124/71
[2017-02-16 16:00] VITALS: BP 118/84
[2017-02-16] MEDS: FUROSEMIDE 40MG/4ML VIAL IVP SCH ×2 (17:00→17:05)
[2017-02-16] MEDS: POTASSIUM CHLORIDE 20MEQ TABLET SR PO SCH ×2 (17:00→17:05)
[2017-02-16] MEDS: LOSARTAN POTASSIUM 25 MG TABLET PO SCH ×2 (17:06→21:08)
[2017-02-16] MEDS: ENOXAPARIN 60MG/0.6ML SYR SUBCUT SCH (17:11)
[2017-02-16] MEDS: HYDROCODONE/ACETAMINOPHEN 10/325MG TABLET PO PRN (17:11)
[2017-02-16] MEDS: DILTIAZEM HCL 90MG TABLET PO SCH (18:25)
[2017-02-16 20:00] VITALS: BP 103/67
[2017-02-16] MEDS ORDERED: TRAZODONE HCL 50MG TABLET PO SCH (21:00)
[2017-02-17] MEDS: DILTIAZEM HCL 90MG TABLET PO SCH ×4 (00:10→18:00)
[2017-02-17 00:42] VITALS: BP 114/90
[2017-02-17] MEDS: ENOXAPARIN 60MG/0.6ML SYR SUBCUT SCH ×2 (02:14→15:34)
[2017-02-17 04:00] VITALS: BP 102/81
[2017-02-17 06:31] LABS: BASOPHILS % 0.4 % (0.0-2.0); EOSINOPHILS % 0.7 % (0.0-5.0); HEMATOCRIT. 31.6 % (36.0-48.0); HEMOGLOBIN. 10.3 g/dL (12.0-16.0); LYMPHOCYTES % 21.5 % (20.0-50.0); MEAN CORPUSCULAR HEMOGLOBIN 25.3 pg (28.0-32.0); MEAN CORPUSCULAR VOLUME 77.6 fL (81.0-99.0); MEAN PLATELET VOLUME 8.2 fl (7.4-10.4); MONOCYTES % 11.5 % (2.0-8.0); NEUTROPHILS % 65.9 % (40.0-76.0); PLATELET 141 x1000/uL (130-400); RED BLOOD CELL COUNT 4.07 mill/uL (4.2-5.4); RED CELL DISTRIBUTION WIDTH 16.9 % (11.6-14.6)
[2017-02-17 06:55] LABS: *AMPHETAMINES SCREEN URINE NEGATIVE (NEGATIVE); *BARBITURATES SCREEN URINE NEGATIVE (NEGATIVE); *BENZODIAZEPINES SCREEN URINE NEGATIVE (NEGATIVE); *COCAINE SCREEN URINE PRESUMTIVE POSITIVE (NEGATIVE); CANNABINOID URINE SCREEN NEGATIVE (NEGATIVE); METHADONE URINE SCREEN NEGATIVE (NEGATIVE); OPIATES URINE SCREEN PRESUMTIVE POSITIVE (NEGATIVE); PHENCYCLIDINE URINE SCREEN NEGATIVE (NEGATIVE)
[2017-02-17 07:35] LABS: CARBON DIOXIDE 31 mEq/L (21-32); CHLORIDE 104 mEq/L (98-107); HDL CHOLESTEROL 56 mg/dL (40-59); LDL CHOLESTEROL 45 mg/dL (5-100)
[2017-02-17 08:08] VITALS: BP 108/76
[2017-02-17] MEDS: FUROSEMIDE 40MG/4ML VIAL IVP SCH ×2 (08:59→17:00)
[2017-02-17] MEDS: GABAPENTIN 300MG CAPSULE PO SCH ×3 (09:00→17:00)
[2017-02-17] MEDS ORDERED: EMTRICITABINE 200MG CAPSULE PO SCH (09:00)
[2017-02-17] MEDS ORDERED: MEDICATION NOT ON FORMULARY EA (Dolutegravir Sodium (Tivicay) 50 MG) PO SCH (09:00)
[2017-02-17] MEDS ORDERED: DOLUTEGRAVIR SODIUM 50 MG PO SCH (09:00)
[2017-02-17] MEDS ORDERED: DESCOVY PO SCH (09:00)
[2017-02-17] MEDS ORDERED: OLANZAPINE 10MG TABLET PO SCH (09:00)
[2017-02-17] MEDS ORDERED: RIVAROXABAN 10 MG TABLET PO SCH (09:00)
[2017-02-17] MEDS: POTASSIUM CHLORIDE 20MEQ TABLET SR PO SCH ×2 (09:01→17:00)
[2017-02-17] MEDS: HYDROCODONE/ACETAMINOPHEN 10/325MG TABLET PO PRN (09:01)
[2017-02-17] MEDS: LOSARTAN POTASSIUM 25 MG TABLET PO SCH (09:01)
[2017-02-17] MEDS ORDERED: FUROSEMIDE 40MG/4ML VIAL IVP SCH (11:15)
[2017-02-17] MEDS ORDERED: POTASSIUM CHLORIDE 20MEQ TABLET SR PO SCH ×2 (11:20→18:00)
[2017-02-17 12:06] VITALS: BP 100/83
[2017-02-17] MEDS ORDERED: LEVOFLOXACIN 500MG PREMIX 100 ML IV SCH (12:45)
[2017-02-17] MEDS ORDERED: LEVOFLOXACIN 250MG PREMIX 50 ML IV SCH (14:00)
[2017-02-17 15:54] VITALS: BP 126/87
[2017-02-17] MEDS ORDERED: DIGOXIN 250MCG TABLET PO SCH (18:00)
[2017-04-26] MEDS ORDERED: CEPH-569 PO (16:14)
[2017-04-26] MEDS ORDERED: [UNRECOGNIZED DRUG - OTHER] PO (16:14)
== END 2017-02-17 19:00 | disposition home or self-care (01) | DRG 292 ==
LOC: ER 07:40 → 6WST 08:34 → EDBEDREQ 08:37 → EDBEDREQTM 08:37 → ENRESERV 10:54
PROVIDERS: ADMIT Internal Medicine; ATTEND Internal Medicine
DX: I11.0 Hypertensive heart disease with heart failure (principal); I24.9 Acute ischemic heart disease, unspecified; I48.92 Unspecified atrial flutter; I42.0 Dilated cardiomyopathy; G62.9 Polyneuropathy, unspecified; I48.91 Unspecified atrial fibrillation; B19.20 Unspecified viral hepatitis C without hepatic coma; F14.10 Cocaine abuse, uncomplicated; I10 Essential (primary) hypertension; I50.9 Heart failure, unspecified; D64.9 Anemia, unspecified; E87.6 Hypokalemia; F17.210 Nicotine dependence, cigarettes, uncomplicated; I44.30 Unspecified atrioventricular block; Z79.01 Long term (current) use of anticoagulants; Z91.14 Patient's other noncompliance with medication regimen; Z91.19 Patient's noncompliance with other medical treatment and regimen; Z88.0 Allergy status to penicillin; Z21 Asymptomatic human immunodeficiency virus [HIV] infection status
CPT/HCPCS: 36415; 71010; 80053; 80061; 80305; 82550; 82553; 83690; 83735; 83880; 84443; 84484; 85025; 85610; 85730; 87040; 87086; 93005; 96365; 96375; 99284; 99291; J1650; J1940; J1956; J2405; J7050

== ENCOUNTER 2017-03-03 06:15 | Emergency (ER) | payer MEDICARE, MEDICAID ==
[~2017-03-03] VITALS: Ht 167.6 cm; Wt 68.2 kg
[2017-03-03] MEDS ORDERED: DILTIAZEM HCL 5MG/ML 5ML VIAL IV ONE (07:15)
[2017-03-03 07:22] LABS: HEMATOCRIT. 32.4 % (36.0-48.0); HEMOGLOBIN. 10.2 g/dL (12.0-16.0); MEAN CORPUSCULAR HEMOGLOBIN 23.7 pg (28.0-32.0); MEAN CORPUSCULAR VOLUME 75.4 fL (81.0-99.0); MEAN PLATELET VOLUME 7.5 fl (7.4-10.4); PLATELET 263 x1000/uL (130-400); RED BLOOD CELL COUNT 4.29 mill/uL (4.2-5.4); RED CELL DISTRIBUTION WIDTH 17.4 % (11.6-14.6)
[2017-03-03 07:26] LABS: INR 1.3; PROTHROMBIN TIME 13.9 sec (9.4-11.6)
[2017-03-03 07:36] LABS: AMMONIA 37 uMol/L (<32)
[2017-03-03 07:38] LABS: CARBON DIOXIDE 28 mEq/L (21-32); CHLORIDE 107 mEq/L (98-107); TROPONIN I 0.07 ng/mL (0.00-0.04)
[2017-03-03 08:19] LABS: NUCLEATED RED BLOOD CELLS 1 /100 WBC; PLATELET ESTIMATE NORMAL
[2017-03-03 13:58] VITALS: BP 146/80
[2017-04-26] MEDS ORDERED: CEPH-569 PO (16:14)
[2017-04-26] MEDS ORDERED: [UNRECOGNIZED DRUG - OTHER] PO (16:14)
== END 2017-03-03 15:51 | disposition home or self-care (01) ==
LOC: ER 06:15
DX: R18.8 Other ascites (principal); K76.89 Other specified diseases of liver; I48.92 Unspecified atrial flutter; I11.9 Hypertensive heart disease without heart failure; J45.909 Unspecified asthma, uncomplicated; Z98.890 Other specified postprocedural states; Z86.74 Personal history of sudden cardiac arrest; Z88.0 Allergy status to penicillin; Z20.6 Contact with and (suspected) exposure to human immunodeficiency virus [HIV]; Z79.82 Long term (current) use of aspirin
CPT/HCPCS: 36415; 71010; 80053; 82140; 83880; 84484; 85025; 85610; 93005; 99285; J3490

== ENCOUNTER 2017-03-05 00:13 | Inpatient (IN) | payer MEDICARE, MEDICAID ==
[~2017-03-05] VITALS: Ht 170.2 cm; Wt 59.0 kg
[2017-03-05 01:37] LABS: BASOPHILS % 0.9 % (0.0-2.0); EOSINOPHILS % 0.6 % (0.0-5.0); HEMATOCRIT. 33.8 % (36.0-48.0); HEMOGLOBIN. 10.5 g/dL (12.0-16.0); LYMPHOCYTES % 22.9 % (20.0-50.0); MEAN CORPUSCULAR HEMOGLOBIN 23.5 pg (28.0-32.0); MEAN CORPUSCULAR VOLUME 75.9 fL (81.0-99.0); MEAN PLATELET VOLUME 7.1 fl (7.4-10.4); MONOCYTES % 9.5 % (2.0-8.0); NEUTROPHILS % 66.1 % (40.0-76.0); PLATELET 267 x1000/uL (130-400); RED BLOOD CELL COUNT 4.46 mill/uL (4.2-5.4); RED CELL DISTRIBUTION WIDTH 17.4 % (11.6-14.6)
[2017-03-05 01:46] LABS: INR 1.3; PARTIAL THROMBOPLASTIN TIME 25.4 sec (23.4-31.0); PROTHROMBIN TIME 13.4 sec (9.4-11.6)
[2017-03-05 01:57] LABS: CARBON DIOXIDE 29 mEq/L (21-32); CHLORIDE 108 mEq/L (98-107); TROPONIN I 0.07 ng/mL (0.00-0.04)
[2017-03-05 07:20] LABS: *AMPHETAMINES SCREEN URINE NEGATIVE (NEGATIVE); *BARBITURATES SCREEN URINE NEGATIVE (NEGATIVE); *BENZODIAZEPINES SCREEN URINE NEGATIVE (NEGATIVE); *COCAINE SCREEN URINE PRESUMTIVE POSITIVE (NEGATIVE); CANNABINOID URINE SCREEN NEGATIVE (NEGATIVE); METHADONE URINE SCREEN NEGATIVE (NEGATIVE); OPIATES URINE SCREEN NEGATIVE (NEGATIVE); PHENCYCLIDINE URINE SCREEN NEGATIVE (NEGATIVE)
[2017-03-05] MEDS ORDERED: DIPHENHYDRAMINE 50MG/ML VIAL IV PRN (08:00)
[2017-03-05] MEDS ORDERED: IPRATROPIUM/ALBUTEROL 0.5-3(2.5)MG/3ML NEB INH PRN (08:00)
[2017-03-05] MEDS ORDERED: ACETAMINOPHEN 325MG TABLET PO PRN (08:00)
[2017-03-05] MEDS ORDERED: ONDANSETRON HCL 4MG/2ML VIAL IV PRN (08:00)
[2017-03-05] MEDS ORDERED: NITROGLYCERIN 0.4MG TABLET SL SL PRN (08:00)
[2017-03-05] MEDS ORDERED: CLONIDINE 0.1MG TABLET PO PRN (08:00)
[2017-03-05] MEDS ORDERED: LORAZEPAM 2MG/ML CPJ IV PRN (08:00)
[2017-03-05] MEDS ORDERED: DOCUSATE SODIUM 100MG CAPSULE PO PRN (08:00)
[2017-03-05] MEDS ORDERED: NA PHOS,M-B/NA PHOS,DI-BA ENEMA 118ML PR PRN (08:00)
[2017-03-05] MEDS ORDERED: KETOROLAC 15MG/ML VIAL IV PRN (08:00)
[2017-03-05] MEDS ORDERED: MAGNESIUM/ALUMINUM HYDROXIDE/SIMETHICONE 30ML UDC PO PRN (08:00)
[2017-03-05] MEDS ORDERED: FUROSEMIDE 40MG/4ML VIAL IVP SCH (10:00)
[2017-03-05] MEDS ORDERED: LEVOFLOXACIN 500MG PREMIX 100 ML IV ONE (10:00)
[2017-03-05] MEDS ORDERED: ASPIRIN 325MG EC TABLET PO SCH (10:00)
[2017-03-05] MEDS: ENOXAPARIN 40MG/0.4ML SYR SUBCUT SCH ×2 (10:00→14:25)
[2017-03-05] MEDS ORDERED: DILTIAZEM HCL 60MG TABLET PO SCH (12:00)
[2017-03-05 13:00] VITALS: BP 112/81
[2017-03-05] MEDS: SPIRONOLACTONE 25MG TABLET PO SCH ×2 (14:24→17:45)
[2017-03-05] MEDS: FAMOTIDINE 20MG/2ML VIAL IV SCH (14:24)
[2017-03-05] MEDS: GUAIFENESIN/DM 600MG/30MG ER TAB 12HR PO SCH ×2 (14:24→21:20)
[2017-03-05] MEDS ORDERED: FUROSEMIDE 40MG/4ML VIAL IVP NR (15:00)
[2017-03-05] MEDS: RIVAROXABAN 15 MG TABLET PO SCH (17:44)
[2017-03-05] MEDS: DILTIAZEM HCL 90MG TABLET PO SCH (17:45)
[2017-03-05 17:49] LABS: TROPONIN I 0.05 ng/mL (0.00-0.04)
[2017-03-05 17:50] LABS: CREATINE KINASE MB FRACTION 1.7 ng/mL (0.5-3.6)
[2017-03-05 20:00] VITALS: BP 100/64
[2017-03-05] MEDS: ZOLPIDEM TARTRATE 5MG TABLET PO PRN (23:35)
[2017-03-05] MEDS: GUAIFENESIN 200MG/10ML SUGAR FREE UDC PO PRN (23:35)
[2017-03-06] VITALS (7 sets, daily range): BP systolic 99–113; BP diastolic 47–75
[2017-03-06] MEDS: IPRATROPIUM/ALBUTEROL 0.5-3(2.5)MG/3ML NEB HHN SCH ×7 (00:16→23:59)
[2017-03-06 01:05] LABS: TROPONIN I 0.05 ng/mL (0.00-0.04)
[2017-03-06 01:06] LABS: CREATINE KINASE MB FRACTION 1.6 ng/mL (0.5-3.6)
[2017-03-06] MEDS: DILTIAZEM HCL 90MG TABLET PO SCH ×4 (06:28→17:21)
[2017-03-06] MEDS: SPIRONOLACTONE 25MG TABLET PO SCH ×2 (06:29→17:21)
[2017-03-06] MEDS ORDERED: DESCOVY PO SCH (09:00)
[2017-03-06] MEDS ORDERED: MEDICATION NOT ON FORMULARY EA (Dolutegravir Sodium (Tivicay) 50 MG) PO SCH (09:00)
[2017-03-06] MEDS: DOLUTEGRAVIR SODIUM 50 MG PO SCH (09:00)
[2017-03-06 09:41] LABS: BASOPHILS % 0.6 % (0.0-2.0); EOSINOPHILS % 0.8 % (0.0-5.0); HEMATOCRIT. 31.6 % (36.0-48.0); HEMOGLOBIN. 9.9 g/dL (12.0-16.0); MEAN CORPUSCULAR HEMOGLOBIN 23.5 pg (28.0-32.0); MEAN PLATELET VOLUME 7.9 fl (7.4-10.4); MONOCYTES % 14.6 % (2.0-8.0); PLATELET 231 x1000/uL (130-400); RED BLOOD CELL COUNT 4.22 mill/uL (4.2-5.4); RED CELL DISTRIBUTION WIDTH 17.8 % (11.6-14.6); TROPONIN I 0.07 ng/mL (0.00-0.04)
[2017-03-06] MEDS: GUAIFENESIN/DM 600MG/30MG ER TAB 12HR PO SCH ×2 (10:35→21:34)
[2017-03-06] MEDS: FUROSEMIDE 40MG/4ML VIAL IVP SCH (10:35)
[2017-03-06] MEDS ORDERED: METOLAZONE 10MG TABLET PO NR (11:30)
[2017-03-06] MEDS: POTASSIUM CHLORIDE 20MEQ TABLET SR PO SCH ×2 (12:59→17:21)
[2017-03-06] MEDS: FAMOTIDINE 20MG/2ML VIAL IV SCH (12:59)
[2017-03-06] MEDS: LEVOFLOXACIN 250MG PREMIX 50 ML IV SCH (13:00)
[2017-03-06] MEDS: RIVAROXABAN 15 MG TABLET PO SCH (17:21)
[2017-03-07] MEDS: ZOLPIDEM TARTRATE 5MG TABLET PO PRN
[2017-03-07] MEDS: IPRATROPIUM/ALBUTEROL 0.5-3(2.5)MG/3ML NEB HHN SCH ×5 (04:00→20:00)
[2017-03-07] MEDS: DILTIAZEM HCL 90MG TABLET PO SCH ×5 (06:00→17:01)
[2017-03-07] MEDS: SPIRONOLACTONE 25MG TABLET PO SCH ×3 (06:00→17:01)
[2017-03-07 06:32] LABS: BASOPHILS % 0.8 % (0.0-2.0); EOSINOPHILS % 0.8 % (0.0-5.0); HEMATOCRIT. 31.7 % (36.0-48.0); LYMPHOCYTES % 35.7 % (20.0-50.0); MEAN CORPUSCULAR HEMOGLOBIN 23.4 pg (28.0-32.0); MEAN CORPUSCULAR VOLUME 74.2 fL (81.0-99.0); MEAN PLATELET VOLUME 7.6 fl (7.4-10.4); MONOCYTES % 14.8 % (2.0-8.0); NEUTROPHILS % 47.9 % (40.0-76.0); PLATELET 238 x1000/uL (130-400); RED BLOOD CELL COUNT 4.27 mill/uL (4.2-5.4); RED CELL DISTRIBUTION WIDTH 17.1 % (11.6-14.6)
[2017-03-07 07:17] VITALS: BP 125/82
[2017-03-07] MEDS: FAMOTIDINE 20MG/2ML VIAL IV SCH (09:02)
[2017-03-07] MEDS: LEVOFLOXACIN 250MG PREMIX 50 ML IV SCH (09:02)
[2017-03-07] MEDS: GUAIFENESIN/DM 600MG/30MG ER TAB 12HR PO SCH ×2 (09:02→21:30)
[2017-03-07] MEDS: FUROSEMIDE 40MG/4ML VIAL IVP SCH (09:02)
[2017-03-07] MEDS: POTASSIUM CHLORIDE 20MEQ TABLET SR PO SCH ×2 (09:02→16:56)
[2017-03-07] MEDS: DOLUTEGRAVIR SODIUM 50 MG PO SCH (09:02)
[2017-03-07 11:28] VITALS: BP 83/52
[2017-03-07 15:30] VITALS: BP 118/85
[2017-03-07] MEDS: RIVAROXABAN 15 MG TABLET PO SCH (16:56)
[2017-03-07 20:20] VITALS: BP 105/73
[2017-03-08] MEDS: IPRATROPIUM/ALBUTEROL 0.5-3(2.5)MG/3ML NEB HHN SCH ×3 (00:12→11:58)
[2017-03-08] MEDS: IPRATROPIUM BROMIDE (0.02%) 0.5MG/2.5ML NEB HHN PRN ×2 (00:18→04:27)
[2017-03-08] MEDS: ZOLPIDEM TARTRATE 5MG TABLET PO PRN (00:18)
[2017-03-08] MEDS: DILTIAZEM HCL 90MG TABLET PO SCH ×3 (00:25→12:00)
[2017-03-08 00:29] VITALS: BP 110/84
[2017-03-08 06:00] VITALS: BP 104/77
[2017-03-08] MEDS: SPIRONOLACTONE 25MG TABLET PO SCH (06:24)
[2017-03-08 08:00] VITALS: BP 106/81
[2017-03-08] MEDS: POTASSIUM CHLORIDE 20MEQ TABLET SR PO SCH (09:33)
[2017-03-08] MEDS: GUAIFENESIN 200MG/10ML SUGAR FREE UDC PO PRN (09:33)
[2017-03-08] MEDS: FUROSEMIDE 40MG/4ML VIAL IVP SCH (09:34)
[2017-03-08] MEDS: FAMOTIDINE 20MG/2ML VIAL IV SCH (09:34)
[2017-03-08] MEDS: DOLUTEGRAVIR SODIUM 50 MG PO SCH (09:34)
[2017-03-08] MEDS: LEVOFLOXACIN 250MG PREMIX 50 ML IV SCH (09:34)
[2017-03-08] MEDS: GUAIFENESIN/DM 600MG/30MG ER TAB 12HR PO SCH (09:34)
[2017-03-08] MEDS ORDERED: DIGOXIN 500MCG/2ML AMP IV NR ×3 (11:15→23:00)
[2017-03-08 11:20] VITALS: BP 104/78
[2017-03-08 12:41] VITALS: BP 104/78
[2017-03-09] MEDS ORDERED: LEVOFLOXACIN 250MG TABLET PO SCH (09:00)
[2017-04-26] MEDS ORDERED: [UNRECOGNIZED DRUG - OTHER] PO (16:14)
[2017-04-26] MEDS ORDERED: CEPH-569 PO (16:14)
== END 2017-03-08 14:45 | disposition home health service (06) | DRG 292 ==
LOC: ER 00:24 → 6WST 05:25 → EDBEDREQ 05:56 → SUPCPDRO 07:53 → ENRESERV 10:32
PROVIDERS: ADMIT Internal Medicine; ATTEND Internal Medicine
DX: I11.0 Hypertensive heart disease with heart failure (principal); R18.8 Other ascites; E44.0 Moderate protein-calorie malnutrition; I48.1 Persistent atrial fibrillation; I42.0 Dilated cardiomyopathy; I27.2 Other secondary pulmonary hypertension; I48.92 Unspecified atrial flutter; I50.43 Acute on chronic combined systolic (congestive) and diastolic (congestive) heart failure; E83.51 Hypocalcemia; I08.1 Rheumatic disorders of both mitral and tricuspid valves; F14.10 Cocaine abuse, uncomplicated; D63.8 Anemia in other chronic diseases classified elsewhere; F17.210 Nicotine dependence, cigarettes, uncomplicated; I49.3 Ventricular premature depolarization; J44.9 Chronic obstructive pulmonary disease, unspecified; E87.6 Hypokalemia; Z88.0 Allergy status to penicillin; Z68.20 Body mass index [BMI] 20.0-20.9, adult; Z79.01 Long term (current) use of anticoagulants
CPT/HCPCS: 36415; 71010; 76705; 80048; 80053; 80305; 82140; 82550; 82553; 83880; 84484; 85025; 85610; 85730; 87040; 93005; 93970; 94640; 96374; 97116; 97162; 97165; 99285; 99291; C1893; J1650; J1940; J1956; J3490; J7050; J7620

== ENCOUNTER 2017-03-11 02:14 | Inpatient (IN) | payer MEDICARE, MEDICAID ==
[~2017-03-11] VITALS: Ht 170.2 cm; Wt 62.1 kg
[2017-03-11] MEDS ORDERED: GUAIFENESIN/CODEINE 200-20MG/10ML UDC PO ONE (02:45)
[2017-03-11] MEDS ORDERED: SODIUM CHLORIDE 0.9% 1,000 ML IV ONE ×2 (02:45→04:20)
[2017-03-11] MEDS ORDERED: ASPIRIN 81MG TABLET PO ONE (02:45)
[2017-03-11] MEDS ORDERED: MAGNESIUM 2 G PREMIX 50 ML IV ONE (02:45)
[2017-03-11 03:38] LABS: EOSINOPHILS % 0.8 % (0.0-5.0); HEMATOCRIT. 30.3 % (36.0-48.0); HEMOGLOBIN. 9.6 g/dL (12.0-16.0); LYMPHOCYTES % 36.2 % (20.0-50.0); MEAN CORPUSCULAR HEMOGLOBIN 23.3 pg (28.0-32.0); MEAN CORPUSCULAR VOLUME 73.6 fL (81.0-99.0); MEAN PLATELET VOLUME 7.8 fl (7.4-10.4); MONOCYTES % 11.4 % (2.0-8.0); NEUTROPHILS % 50.6 % (40.0-76.0); PLATELET 166 x1000/uL (130-400); RED BLOOD CELL COUNT 4.12 mill/uL (4.2-5.4); RED CELL DISTRIBUTION WIDTH 17.3 % (11.6-14.6)
[2017-03-11 03:53] LABS: CARBON DIOXIDE 32 mEq/L (21-32); CHLORIDE 100 mEq/L (98-107); ETHANOL BLOOD < 10 mg/dL; TROPONIN I 0.05 ng/mL (0.00-0.04)
[2017-03-11] MEDS ORDERED: POTASSIUM BICARB/CIT ACID 25 MEQ TABLET.EFF PO SCH (04:39)
[2017-03-11 06:30] LABS: *AMPHETAMINES SCREEN URINE NEGATIVE (NEGATIVE); *BARBITURATES SCREEN URINE NEGATIVE (NEGATIVE); *BENZODIAZEPINES SCREEN URINE NEGATIVE (NEGATIVE); *COCAINE SCREEN URINE PRESUMTIVE POSITIVE (NEGATIVE); CANNABINOID URINE SCREEN NEGATIVE (NEGATIVE); METHADONE URINE SCREEN NEGATIVE (NEGATIVE); OPIATES URINE SCREEN PRESUMTIVE POSITIVE (NEGATIVE); PHENCYCLIDINE URINE SCREEN NEGATIVE (NEGATIVE)
[2017-03-11 10:20] VITALS: BP 108/86
[2017-03-11] MEDS ORDERED: KETOROLAC 15MG/ML VIAL IV PRN (10:30)
[2017-03-11] MEDS ORDERED: TRAMADOL 50MG TABLET PO PRN (10:30)
[2017-03-11] MEDS ORDERED: IPRATROPIUM/ALBUTEROL 0.5-3(2.5)MG/3ML NEB INH PRN (10:30)
[2017-03-11] MEDS ORDERED: MAGNESIUM/ALUMINUM HYDROXIDE/SIMETHICONE 30ML UDC PO PRN (10:30)
[2017-03-11] MEDS ORDERED: GUAIFENESIN 200MG/10ML SUGAR FREE UDC PO PRN (10:30)
[2017-03-11] MEDS ORDERED: NITROGLYCERIN 0.4MG TABLET SL SL PRN (10:30)
[2017-03-11] MEDS ORDERED: DIPHENHYDRAMINE 50MG/ML VIAL IV PRN (10:30)
[2017-03-11] MEDS ORDERED: NA PHOS,M-B/NA PHOS,DI-BA ENEMA 118ML PR PRN (10:30)
[2017-03-11] MEDS ORDERED: ACETAMINOPHEN 325MG TABLET PO PRN (10:30)
[2017-03-11] MEDS ORDERED: CLONIDINE 0.1MG TABLET PO PRN (10:30)
[2017-03-11] MEDS ORDERED: DOCUSATE SODIUM 100MG CAPSULE PO PRN (10:30)
[2017-03-11] MEDS ORDERED: ONDANSETRON HCL 4MG/2ML VIAL IV PRN (10:30)
[2017-03-11] MEDS: GUAIFENESIN 600MG ER TABLET PO SCH ×3 (11:03→20:09)
[2017-03-11] MEDS: DILTIAZEM HCL 30MG TABLET PO SCH ×3 (11:38→23:18)
[2017-03-11] MEDS: ASCORBIC ACID 500 MG TABLET PO SCH ×2 (11:38→20:08)
[2017-03-11 12:00] VITALS: BP 118/87
[2017-03-11] MEDS: METHYLPREDNISOLONE SOD SUCC 125 MG/2 ML VIAL IV SCH ×2 (13:21→22:11)
[2017-03-11] MEDS ORDERED: SODIUM CHLORIDE 0.9% 10ML VIAL ONE (15:05)
[2017-03-11] MEDS ORDERED: IOHEXOL-350 100 ML BOTTLE ONE (15:05)
[2017-03-11] MEDS ORDERED: DIATR MEGLU/DIATRIZOATE SOLN 30ML ONE (15:05)
[2017-03-11 15:31] LABS: CREATINE KINASE MB FRACTION 1.9 ng/mL (0.5-3.6); TROPONIN I 0.04 ng/mL (0.00-0.04)
[2017-03-11 16:00] VITALS: BP 117/89
[2017-03-11] MEDS: RIVAROXABAN 15 MG TABLET PO SCH (17:02)
[2017-03-11] MEDS: SPIRONOLACTONE 25MG TABLET PO SCH (17:02)
[2017-03-11] MEDS ORDERED: SPIRONOLACTONE 25MG TABLET PO SCH (18:00)
[2017-03-11] MEDS: LORAZEPAM 2MG/ML CPJ IV PRN (18:41)
[2017-03-11 20:00] VITALS: BP 117/85
[2017-03-11] MEDS: FUROSEMIDE 20MG TABLET PO SCH (20:09)
[2017-03-11] MEDS ORDERED: ZOLPIDEM TARTRATE 5MG TABLET PO PRN (21:00)
[2017-03-11 22:00] VITALS: BP 117/85
[2017-03-12] VITALS: BP 126/83
[2017-03-12 01:25] LABS: CREATINE KINASE MB FRACTION 1.8 ng/mL (0.5-3.6); TROPONIN I 0.03 ng/mL (0.00-0.04)
[2017-03-12] MEDS: METHYLPREDNISOLONE SOD SUCC 125 MG/2 ML VIAL IV SCH ×3 (05:26→23:10)
[2017-03-12] MEDS: SPIRONOLACTONE 25MG TABLET PO SCH ×2 (05:27→17:50)
[2017-03-12] MEDS: DILTIAZEM HCL 30MG TABLET PO SCH ×4 (05:27→23:09)
[2017-03-12 08:00] VITALS: BP 102/75
[2017-03-12] MEDS: ASPIRIN 325MG EC TABLET PO SCH (09:00)
[2017-03-12] MEDS ORDERED: METOLAZONE 10MG TABLET PO NR (09:30)
[2017-03-12] MEDS: GUAIFENESIN 600MG ER TABLET PO SCH ×2 (10:39→23:14)
[2017-03-12] MEDS: ASCORBIC ACID 500 MG TABLET PO SCH ×2 (10:39→23:14)
[2017-03-12] MEDS: FUROSEMIDE 20MG TABLET PO SCH ×2 (10:40→23:13)
[2017-03-12 10:57] LABS: HEMATOCRIT. 32.2 % (36.0-48.0); HEMOGLOBIN. 9.9 g/dL (12.0-16.0); MEAN CORPUSCULAR VOLUME 75.1 fL (81.0-99.0); MEAN PLATELET VOLUME 7.8 fl (7.4-10.4); PLATELET 135 x1000/uL (130-400); RED BLOOD CELL COUNT 4.28 mill/uL (4.2-5.4); RED CELL DISTRIBUTION WIDTH 17.5 % (11.6-14.6)
[2017-03-12 11:19] LABS: CARBON DIOXIDE 27 mEq/L (21-32); CHLORIDE 101 mEq/L (98-107)
[2017-03-12 11:57] VITALS: BP 106/68
[2017-03-12 14:58] LABS: PLATELET ESTIMATE NORMAL
[2017-03-12 16:50] VITALS: BP 121/89
[2017-03-12] MEDS: RIVAROXABAN 15 MG TABLET PO SCH (17:50)
[2017-03-12 20:00] VITALS: BP 122/90
[2017-03-13] VITALS: BP 127/98
[2017-03-13 04:00] VITALS: BP 125/86
[2017-03-13] MEDS: METHYLPREDNISOLONE SOD SUCC 125 MG/2 ML VIAL IV SCH ×3 (06:28→21:16)
[2017-03-13] MEDS: DILTIAZEM HCL 30MG TABLET PO SCH ×4 (06:29→23:27)
[2017-03-13] MEDS: SPIRONOLACTONE 25MG TABLET PO SCH ×2 (06:29→17:26)
[2017-03-13 08:00] VITALS: BP 115/92
[2017-03-13] MEDS: FUROSEMIDE 20MG TABLET PO SCH ×2 (09:00→21:15)
[2017-03-13] MEDS: GUAIFENESIN 600MG ER TABLET PO SCH ×2 (10:52→21:14)
[2017-03-13] MEDS: ASCORBIC ACID 500 MG TABLET PO SCH ×2 (10:52→21:15)
[2017-03-13] MEDS: ASPIRIN 325MG EC TABLET PO SCH (10:52)
[2017-03-13 11:47] VITALS: BP 137/95
[2017-03-13 15:57] VITALS: BP 142/96
[2017-03-13] MEDS: RIVAROXABAN 15 MG TABLET PO SCH (17:27)
[2017-03-13 20:00] VITALS: BP 128/96
[2017-03-13] MEDS: LORAZEPAM 2MG/ML CPJ IV PRN (23:26)
[2017-03-14] VITALS: BP 119/92
[2017-03-14 04:00] VITALS: BP 115/88
[2017-03-14] MEDS: METHYLPREDNISOLONE SOD SUCC 125 MG/2 ML VIAL IV SCH ×2 (06:19→13:44)
[2017-03-14] MEDS: SPIRONOLACTONE 25MG TABLET PO SCH (06:20)
[2017-03-14] MEDS: DILTIAZEM HCL 30MG TABLET PO SCH ×2 (06:21→11:27)
[2017-03-14] MEDS: ASCORBIC ACID 500 MG TABLET PO SCH (08:41)
[2017-03-14] MEDS: ASPIRIN 325MG EC TABLET PO SCH (08:41)
[2017-03-14 08:42] VITALS: BP 135/89
[2017-03-14] MEDS: GUAIFENESIN 600MG ER TABLET PO SCH (08:47)
[2017-03-14] MEDS: FUROSEMIDE 20MG TABLET PO SCH ×2 (09:00→11:29)
[2017-03-14 11:31] VITALS: BP 110/66
[2017-03-14 12:57] VITALS: BP 107/78
[2017-04-26] MEDS ORDERED: CEPH-569 PO (16:14)
[2017-04-26] MEDS ORDERED: [UNRECOGNIZED DRUG - OTHER] PO (16:14)
== END 2017-03-14 14:20 | disposition home or self-care (01) | DRG 191 ==
LOC: ER 02:22 → 8WST 05:09 → ENRESERV 09:22
PROVIDERS: ADMIT Internal Medicine; ATTEND Internal Medicine
DX: J44.1 Chronic obstructive pulmonary disease with (acute) exacerbation (principal); E44.0 Moderate protein-calorie malnutrition; I42.9 Cardiomyopathy, unspecified; I48.92 Unspecified atrial flutter; I11.0 Hypertensive heart disease with heart failure; I50.9 Heart failure, unspecified; E87.5 Hyperkalemia; I48.91 Unspecified atrial fibrillation; F14.10 Cocaine abuse, uncomplicated; L03.90 Cellulitis, unspecified; D63.8 Anemia in other chronic diseases classified elsewhere; G62.9 Polyneuropathy, unspecified; E87.6 Hypokalemia; Z21 Asymptomatic human immunodeficiency virus [HIV] infection status; Z91.14 Patient's other noncompliance with medication regimen; Z68.21 Body mass index [BMI] 21.0-21.9, adult; Z88.0 Allergy status to penicillin
CPT/HCPCS: 36415; 71010; 71275; 74176; 80053; 80305; 82550; 82553; 83605; 83690; 83880; 84484; 85025; 85379; 87804; 93005; 93970; 96361; 96365; 96366; 96376; 99285; A4216; G0482; J2060; J2405; J2930; J3475; J7030; J7050; J7620; Q9963; Q9967

== ENCOUNTER 2017-04-24 08:09 | Inpatient (IN) | payer MEDICARE, MEDICAID ==
[~2017-04-24] VITALS: Ht 165.1 cm; Wt 66.7 kg
[2017-04-24 08:48] LABS: BASOPHILS % 0.8 % (0.0-2.0); EOSINOPHILS % 0.3 % (0.0-5.0); HEMATOCRIT. 36.4 % (36.0-48.0); HEMOGLOBIN. 11.2 g/dL (12.0-16.0); LYMPHOCYTES % 21.1 % (20.0-50.0); MEAN CORPUSCULAR HEMOGLOBIN 23.4 pg (28.0-32.0); MEAN CORPUSCULAR VOLUME 75.6 fL (81.0-99.0); MEAN PLATELET VOLUME 7.3 fl (7.4-10.4); MONOCYTES % 9.1 % (2.0-8.0); NEUTROPHILS % 68.7 % (40.0-76.0); PLATELET 233 x1000/uL (130-400); RED BLOOD CELL COUNT 4.81 mill/uL (4.2-5.4); RED CELL DISTRIBUTION WIDTH 21.2 % (11.6-14.6)
[2017-04-24 09:06] LABS: CARBON DIOXIDE 28 mEq/L (21-32); CHLORIDE 108 mEq/L (98-107); TROPONIN I 0.04 ng/mL (0.00-0.04)
[2017-04-24 09:16] LABS: INR 1.3; PROTHROMBIN TIME 13.4 sec (9.4-11.6)
[2017-04-24] MEDS ORDERED: LIDOCAINE HCL 1% 20ML VIAL (Pyxis) INJ ONE (10:21)
[2017-04-24] MEDS ORDERED: SODIUM BICARBONATE 4% (2.4MEQ) 5ML VIAL IV ONE (10:22)
[2017-04-24] MEDS ORDERED: LEVOFLOXACIN 750MG PREMIX 150 ML IV ONE (11:15)
[2017-04-24 12:10] VITALS: BP 115/73
[2017-04-24 15:51] VITALS: BP 112/80
[2017-04-24] MEDS ORDERED: FUROSEMIDE 40MG/4ML VIAL IVP SCH (17:15)
[2017-04-24 20:00] VITALS: BP 111/82
[2017-04-24] MEDS: FUROSEMIDE 40MG/4ML VIAL IVP SCH (20:11)
[2017-04-24] MEDS ORDERED: MAGNESIUM/ALUMINUM HYDROXIDE/SIMETHICONE 30ML UDC PO PRN (22:45)
[2017-04-24] MEDS ORDERED: IPRATROPIUM/ALBUTEROL 0.5-3(2.5)MG/3ML NEB INH PRN (22:45)
[2017-04-24] MEDS ORDERED: ACETAMINOPHEN 650MG/20.3ML UDC GT PRN (22:45)
[2017-04-24] MEDS ORDERED: DIPHENHYDRAMINE 50MG/ML VIAL IV PRN (22:45)
[2017-04-24] MEDS ORDERED: DOCUSATE SODIUM 100MG CAPSULE PO PRN (22:45)
[2017-04-24] MEDS ORDERED: GUAIFENESIN 200MG/10ML SUGAR FREE UDC PO PRN (22:45)
[2017-04-24] MEDS ORDERED: ACETAMINOPHEN 650MG SUPP PR PRN (22:45)
[2017-04-24] MEDS ORDERED: CLONIDINE 0.1MG TABLET PO PRN (22:45)
[2017-04-24] MEDS ORDERED: NA PHOS,M-B/NA PHOS,DI-BA ENEMA 118ML PR PRN (22:45)
[2017-04-24] MEDS ORDERED: ONDANSETRON HCL 4MG/2ML VIAL IV PRN (22:45)
[2017-04-24] MEDS ORDERED: ACETAMINOPHEN 325MG TABLET PO PRN (22:45)
[2017-04-24] MEDS: ZOLPIDEM TARTRATE 5MG TABLET PO PRN (23:30)
[2017-04-25] VITALS: BP 101/73
[2017-04-25 04:00] VITALS: BP 105/78
[2017-04-25] MEDS: FUROSEMIDE 40MG/4ML VIAL IVP SCH ×2 (06:11→17:38)
[2017-04-25] MEDS: SODIUM CHLORIDE 0.9% INJ 3ML FLUSH IVF SCH ×4 (06:11→23:01)
[2017-04-25 06:49] LABS: BASOPHILS % 0.5 % (0.0-2.0); EOSINOPHILS % 1.9 % (0.0-5.0); HEMATOCRIT. 32.2 % (36.0-48.0); LYMPHOCYTES % 33.5 % (20.0-50.0); MEAN CORPUSCULAR HEMOGLOBIN 23.1 pg (28.0-32.0); MEAN CORPUSCULAR VOLUME 74.2 fL (81.0-99.0); MEAN PLATELET VOLUME 7.4 fl (7.4-10.4); MONOCYTES % 9.6 % (2.0-8.0); NEUTROPHILS % 54.5 % (40.0-76.0); PLATELET 199 x1000/uL (130-400); RED BLOOD CELL COUNT 4.34 mill/uL (4.2-5.4); RED CELL DISTRIBUTION WIDTH 20.8 % (11.6-14.6)
[2017-04-25 07:45] LABS: CHLORIDE 107 mEq/L (98-107)
[2017-04-25 08:26] LABS: CARBON DIOXIDE 26 mEq/L (21-32); HDL CHOLESTEROL 43 mg/dL (40-59); LDL CHOLESTEROL 44 mg/dL (5-100)
[2017-04-25] MEDS: IPRATROPIUM/ALBUTEROL 0.5-3(2.5)MG/3ML NEB INH SCH ×3 (08:33→21:15)
[2017-04-25 08:39] VITALS: BP 116/87
[2017-04-25] MEDS: CARVEDILOL 3.125 MG TABLET PO SCH ×2 (10:40→20:49)
[2017-04-25] MEDS: POTASSIUM CHLORIDE 20MEQ TABLET SR PO SCH ×2 (10:40→17:38)
[2017-04-25] MEDS: HYDROCODONE/ACETAMINOPHEN 5/325MG TABLET PO PRN (12:08)
[2017-04-25 12:20] VITALS: BP 118/72
[2017-04-25 14:37] LABS: CLARITY URINE CLEAR (CLEAR); COLOR URINE YELLOW (YELLOW); GLUCOSE URINE NEGATIVE (NEGATIVE); KETONES URINE NEGATIVE (NEGATIVE); LEUKOCYTE ESTERASE URINE NEGATIVE (NEGATIVE); NITRITE URINE NEGATIVE (NEGATIVE); OCCULT BLOOD URINE NEGATIVE (NEGATIVE); PROTEIN URINE NEGATIVE (NEGATIVE); SPECIFIC GRAVITY URINE 1.011 (1.005-1.030); UROBILINOGEN URINE 0.2 E.U./dL (0.2-1.0)
[2017-04-25 14:50] LABS: *AMPHETAMINES SCREEN URINE NEGATIVE (NEGATIVE); *BARBITURATES SCREEN URINE NEGATIVE (NEGATIVE); *BENZODIAZEPINES SCREEN URINE NEGATIVE (NEGATIVE); *COCAINE SCREEN URINE PRESUMTIVE POSITIVE (NEGATIVE); CANNABINOID URINE SCREEN NEGATIVE (NEGATIVE); METHADONE URINE SCREEN NEGATIVE (NEGATIVE); OPIATES URINE SCREEN NEGATIVE (NEGATIVE); PHENCYCLIDINE URINE SCREEN NEGATIVE (NEGATIVE)
[2017-04-25 15:23] VITALS: BP 107/71
[2017-04-25] MEDS: AZITHROMYCIN 500 MG TABLET PO SCH (17:38)
[2017-04-25 20:00] VITALS: BP 113/81
[2017-04-25] MEDS ORDERED: GABAPENTIN 300MG CAPSULE PO SCH (20:00)
[2017-04-25] MEDS: SULFAMETHOXAZOLE/TRIMETHOPRIM 800/160MG TABLET PO SCH (20:49)
[2017-04-25] MEDS: BUDESONIDE 0.5MG/2ML NEB HHN SCH (21:15)
[2017-04-25 21:27] LABS: PHOSPHORUS 2.9 mg/dL (2.5-4.9)
[2017-04-25 21:40] LABS: CARBON DIOXIDE 32 mEq/L (21-32); CHLORIDE 102 mEq/L (98-107)
[2017-04-25] MEDS: PHENYLEPHRINE/SHK LV/MO/PET,WH RECTAL OINT 30GM PR SCH (23:01)
[2017-04-25] MEDS: ZOLPIDEM TARTRATE 5MG TABLET PO PRN (23:01)
[2017-04-25] MEDS ORDERED: POTASSIUM CHLORIDE 20MEQ TABLET SR PO NR (23:15)
[2017-04-26] VITALS: BP 96/67
[2017-04-26] MEDS ORDERED: MAGNESIUM 2 G PREMIX 50 ML IV NR (01:00)
[2017-04-26] MEDS: IPRATROPIUM/ALBUTEROL 0.5-3(2.5)MG/3ML NEB INH SCH ×3 (01:50→15:12)
[2017-04-26 04:00] VITALS: BP 115/84
[2017-04-26] MEDS ORDERED: DIPHENOXYLATE/ATROPINE 2.5/0.025MG TABLET PO NR (05:15)
[2017-04-26] MEDS: PHENYLEPHRINE/SHK LV/MO/PET,WH RECTAL OINT 30GM PR SCH ×2 (05:24→11:34)
[2017-04-26] MEDS: GABAPENTIN 100MG CAPSULE PO SCH ×2 (05:25→13:36)
[2017-04-26 06:44] LABS: BASOPHILS % 0.9 % (0.0-2.0); EOSINOPHILS % 2.7 % (0.0-5.0); HEMATOCRIT. 33.3 % (36.0-48.0); HEMOGLOBIN. 10.3 g/dL (12.0-16.0); MEAN CORPUSCULAR HEMOGLOBIN 23.3 pg (28.0-32.0); MEAN CORPUSCULAR VOLUME 75.1 fL (81.0-99.0); MEAN PLATELET VOLUME 7.5 fl (7.4-10.4); NEUTROPHILS % 55.4 % (40.0-76.0); PLATELET 181 x1000/uL (130-400); RED BLOOD CELL COUNT 4.43 mill/uL (4.2-5.4); RED CELL DISTRIBUTION WIDTH 20.6 % (11.6-14.6)
[2017-04-26 07:03] LABS: TROPONIN I 0.02 ng/mL (0.00-0.04)
[2017-04-26] MEDS: FUROSEMIDE 40MG/4ML VIAL IVP SCH (07:15)
[2017-04-26] MEDS: BUDESONIDE 0.5MG/2ML NEB HHN SCH (07:44)
[2017-04-26 08:00] VITALS: BP 105/58
[2017-04-26] MEDS ORDERED: LEVOFLOXACIN 750MG PREMIX 150 ML IV SCH (09:00)
[2017-04-26] MEDS: AZITHROMYCIN 500 MG TABLET PO SCH (09:41)
[2017-04-26] MEDS: POTASSIUM CHLORIDE 20MEQ TABLET SR PO SCH (09:41)
[2017-04-26] MEDS: SULFAMETHOXAZOLE/TRIMETHOPRIM 800/160MG TABLET PO SCH (09:41)
[2017-04-26] MEDS: CARVEDILOL 3.125 MG TABLET PO SCH (09:42)
[2017-04-26] MEDS: HYDROCODONE/ACETAMINOPHEN 5/325MG TABLET PO PRN ×2 (10:16→14:35)
[2017-04-26] MEDS ORDERED: MAGNESIUM 2 G PREMIX 50 ML IV SCH (11:00)
[2017-04-26] MEDS: SODIUM CHLORIDE 0.9% INJ 3ML FLUSH IVF SCH (11:34)
[2017-04-26 12:30] VITALS: BP 100/61
[2017-04-26] MEDS ORDERED: [UNRECOGNIZED DRUG - OTHER] PO (16:14)
[2017-04-26] MEDS ORDERED: CEPH-569 PO (16:14)
[2017-04-26 16:27] VITALS: BP 105/54
[2017-04-26 17:05] VITALS: BP 105/54
== END 2017-04-26 18:25 | disposition home or self-care (01) | DRG 291 ==
LOC: ER 08:18 → 8WST 11:10 → EDBEDREQ 11:11 → ENRESERV 11:19 → 8WST 15:55
PROVIDERS: ADMIT Family Medicine; ATTEND Family Medicine
PROC: 0W9G3ZZ Drainage of Peritoneal Cavity, Percutaneous Approach (ICD-10-PCS; principal; 2017-04-24)
DX: I11.0 Hypertensive heart disease with heart failure (principal); J96.00 Acute respiratory failure, unspecified whether with hypoxia or hypercapnia; I27.21 Secondary pulmonary arterial hypertension; E83.42 Hypomagnesemia; I08.1 Rheumatic disorders of both mitral and tricuspid valves; J44.1 Chronic obstructive pulmonary disease with (acute) exacerbation; R18.8 Other ascites; I48.91 Unspecified atrial fibrillation; I42.9 Cardiomyopathy, unspecified; K62.3 Rectal prolapse; K64.9 Unspecified hemorrhoids; I50.23 Acute on chronic systolic (congestive) heart failure; B19.20 Unspecified viral hepatitis C without hepatic coma; I49.3 Ventricular premature depolarization; I49.1 Atrial premature depolarization; F17.210 Nicotine dependence, cigarettes, uncomplicated; F14.90 Cocaine use, unspecified, uncomplicated; E87.6 Hypokalemia; F19.10 Other psychoactive substance abuse, uncomplicated; Z88.0 Allergy status to penicillin; Z79.82 Long term (current) use of aspirin; Z79.899 Other long term (current) drug therapy; Z91.14 Patient's other noncompliance with medication regimen
CPT/HCPCS: 36415; 49083; 71010; 80048; 80053; 80061; 80305; 81003; 82150; 82945; 83605; 83690; 83735; 83880; 84100; 84157; 84484; 85025; 85610; 87040; 87070; 87086; 87205; 89050; 89060; 93005; 93306; 94640; 94664; 96365; 99285; J1940; J1956; J3475; J3490; J7050; J7620; J7626

== ENCOUNTER 2017-08-08 06:38 | Inpatient (IN) | payer MEDICARE, MEDICAID ==
[~2017-08-08] VITALS: Ht 170.2 cm; Wt 71.7 kg
[~2017-08-08 06:38] MED LIST changes: -ASPI-1236 PO; +CEPH-569 PO; +LISI10TA5 PO; +METO-539 PO; +SPIR25TA4 PO; +[UNRECOGNIZED DRUG - OTHER] PO
[2017-08-08] MEDS ORDERED: FUROSEMIDE 40MG/4ML VIAL IV STA (07:20)
[2017-08-08] MEDS ORDERED: ASPIRIN 81MG TABLET PO STA (07:20)
[2017-08-08] MEDS ORDERED: NITROGLYCERIN OINT 1GM/INCH UDPKT TD STA (07:20)
[2017-08-08 07:49] LABS: BASOPHILS % 1.2 % (0.0-2.0); EOSINOPHILS % 0.1 % (0.0-5.0); HEMOGLOBIN. 10.6 g/dL (12.0-16.0); LYMPHOCYTES % 20.7 % (20.0-50.0); MEAN CORPUSCULAR HEMOGLOBIN 23.2 pg (28.0-32.0); MEAN CORPUSCULAR VOLUME 76.9 fL (81.0-99.0); MEAN PLATELET VOLUME 7.9 fl (7.4-10.4); MONOCYTES % 8.4 % (2.0-8.0); NEUTROPHILS % 69.6 % (40.0-76.0); PLATELET 259 x1000/uL (130-400); RED BLOOD CELL COUNT 4.56 mill/uL (4.2-5.4); RED CELL DISTRIBUTION WIDTH 19.4 % (11.6-14.6)
[2017-08-08 07:58] LABS: INR 1.3; PARTIAL THROMBOPLASTIN TIME 25.9 sec (23.4-31.0); PROTHROMBIN TIME 13.4 sec (9.4-11.6)
[2017-08-08 08:07] LABS: CHLORIDE 110 mEq/L (98-107); TROPONIN I 0.04 ng/mL (0.00-0.04)
[2017-08-08] MEDS ORDERED: CLONIDINE 0.1MG TABLET PO PRN (09:00)
[2017-08-08] MEDS ORDERED: METHYLPREDNISOLONE SOD SUCC 125 MG/2 ML VIAL IV SCH (09:00)
[2017-08-08] MEDS ORDERED: DOCUSATE SODIUM 100MG CAPSULE PO PRN (09:00)
[2017-08-08] MEDS ORDERED: ACETAMINOPHEN 325MG TABLET PO PRN (09:00)
[2017-08-08] MEDS ORDERED: MORPHINE SULFATE 4 MG/ML CPJ (NOT FOR IM USE) IV PRN (09:00)
[2017-08-08] MEDS ORDERED: ONDANSETRON HCL 4MG/2ML VIAL IV PRN (09:00)
[2017-08-08] MEDS ORDERED: MAGNESIUM/ALUMINUM HYDROXIDE/SIMETHICONE 30ML UDC PO PRN (09:00)
[2017-08-08] MEDS ORDERED: IPRATROPIUM/ALBUTEROL 0.5-3(2.5)MG/3ML NEB INH PRN (09:00)
[2017-08-08] MEDS ORDERED: GUAIFENESIN 200MG/10ML SUGAR FREE UDC PO PRN (09:00)
[2017-08-08] MEDS ORDERED: SULFAMETHOXAZOLE/TRIMETHOPRIM 400/80MG TAB PO ONE (11:15)
[2017-08-08 11:30] VITALS: BP 127/86
[2017-08-08] MEDS ORDERED: NA PHOS,M-B/NA PHOS,DI-BA ENEMA 118ML PR PRN (12:47)
[2017-08-08] MEDS ORDERED: AZITHROMYCIN 500 MG TABLET PO NR (13:00)
[2017-08-08] MEDS: ENOXAPARIN 40MG/0.4ML SYR SUBCUT SCH (14:02)
[2017-08-08] MEDS: METHYLPREDNISOLONE SOD SUCC 40 MG/ML VIAL IV SCH ×2 (14:02→21:34)
[2017-08-08] MEDS: ASPIRIN 81MG EC TABLET PO SCH (14:02)
[2017-08-08 14:34] VITALS: BP 132/78
[2017-08-08] MEDS ORDERED: LEVOFLOXACIN 500MG PREMIX 100 ML IV SCH (15:00)
[2017-08-08 15:12] LABS: CLARITY URINE CLEAR (CLEAR); COLOR URINE YELLOW (YELLOW); KETONES URINE NEGATIVE (NEGATIVE); LEUKOCYTE ESTERASE URINE TRACE (NEGATIVE); NITRITE URINE NEGATIVE (NEGATIVE); OCCULT BLOOD URINE NEGATIVE (NEGATIVE); PROTEIN URINE NEGATIVE (NEGATIVE); UROBILINOGEN URINE 0.2 E.U./dL (0.2-1.0)
[2017-08-08 15:36] LABS: *AMPHETAMINES SCREEN URINE NEGATIVE (NEGATIVE); *BARBITURATES SCREEN URINE NEGATIVE (NEGATIVE); *BENZODIAZEPINES SCREEN URINE NEGATIVE (NEGATIVE); *COCAINE SCREEN URINE PRESUMTIVE POSITIVE (NEGATIVE); CANNABINOID URINE SCREEN NEGATIVE (NEGATIVE); METHADONE URINE SCREEN NEGATIVE (NEGATIVE); OPIATES URINE SCREEN NEGATIVE (NEGATIVE); PHENCYCLIDINE URINE SCREEN NEGATIVE (NEGATIVE)
[2017-08-08 16:00] VITALS: BP 131/90
[2017-08-08] MEDS: SULFAMETHOXAZOLE/TRIMETHOPRIM 400/80MG TAB PO SCH ×2 (17:32→21:34)
[2017-08-08] MEDS: FUROSEMIDE 40MG/4ML VIAL IV SCH (17:32)
[2017-08-08] MEDS: HYDROCODONE/ACETAMINOPHEN 10/325MG TABLET PO PRN (17:45)
[2017-08-08 20:00] VITALS: BP 114/70
[2017-08-09] VITALS: BP 121/86
[2017-08-09] MEDS: IPRATROPIUM/ALBUTEROL 0.5-3(2.5)MG/3ML NEB HHN SCH ×4 (00:15→21:23)
[2017-08-09] MEDS: HYDROCODONE/ACETAMINOPHEN 10/325MG TABLET PO PRN ×3 (02:24→23:30)
[2017-08-09 04:00] VITALS: BP 154/86
[2017-08-09] MEDS: FUROSEMIDE 40MG/4ML VIAL IV SCH ×2 (06:26→17:38)
[2017-08-09] MEDS: METHYLPREDNISOLONE SOD SUCC 40 MG/ML VIAL IV SCH ×3 (06:26→21:36)
[2017-08-09 08:00] VITALS: BP 129/79
[2017-08-09] MEDS: ENOXAPARIN 40MG/0.4ML SYR SUBCUT SCH (09:00)
[2017-08-09 09:29] LABS: BASOPHILS % 0.2 % (0.0-2.0); HEMATOCRIT. 33.5 % (36.0-48.0); HEMOGLOBIN. 10.2 g/dL (12.0-16.0); LYMPHOCYTES % 9.5 % (20.0-50.0); MEAN CORPUSCULAR VOLUME 75.4 fL (81.0-99.0); MEAN PLATELET VOLUME 7.3 fl (7.4-10.4); MONOCYTES % 4.2 % (2.0-8.0); NEUTROPHILS % 86.1 % (40.0-76.0); PLATELET 233 x1000/uL (130-400); RED BLOOD CELL COUNT 4.44 mill/uL (4.2-5.4); RED CELL DISTRIBUTION WIDTH 19.1 % (11.6-14.6)
[2017-08-09 09:56] LABS: CHLORIDE 103 mEq/L (98-107); HDL CHOLESTEROL 48 mg/dL (40-59); LDL CHOLESTEROL 52 mg/dL (5-100)
[2017-08-09] MEDS: AZITHROMYCIN 500 MG TABLET PO SCH (10:00)
[2017-08-09] MEDS: SULFAMETHOXAZOLE/TRIMETHOPRIM 400/80MG TAB PO SCH ×2 (10:00→21:36)
[2017-08-09] MEDS: ASPIRIN 81MG EC TABLET PO SCH (10:00)
[2017-08-09 12:00] VITALS: BP 137/81
[2017-08-09] MEDS: LOSARTAN POTASSIUM 25 MG TABLET PO SCH (15:16)
[2017-08-09 16:00] VITALS: BP 156/93
[2017-08-09 20:00] VITALS: BP 152/97
[2017-08-09] MEDS: GABAPENTIN 300MG CAPSULE PO SCH (21:36)
[2017-08-10] VITALS: BP 127/73
[2017-08-10] MEDS: IPRATROPIUM/ALBUTEROL 0.5-3(2.5)MG/3ML NEB HHN SCH ×6 (01:00→20:11)
[2017-08-10] MEDS: METHYLPREDNISOLONE SOD SUCC 40 MG/ML VIAL IV SCH (05:34)
[2017-08-10] MEDS: FUROSEMIDE 40MG/4ML VIAL IV SCH ×3 (05:34→18:23)
[2017-08-10] MEDS: GABAPENTIN 300MG CAPSULE PO SCH ×3 (05:34→21:59)
[2017-08-10 06:59] LABS: HEMATOCRIT. 31.1 % (36.0-48.0); HEMOGLOBIN. 9.5 g/dL (12.0-16.0); MEAN CORPUSCULAR HEMOGLOBIN 22.7 pg (28.0-32.0); MEAN CORPUSCULAR VOLUME 74.6 fL (81.0-99.0); MEAN PLATELET VOLUME 7.8 fl (7.4-10.4); PLATELET 225 x1000/uL (130-400); RED BLOOD CELL COUNT 4.17 mill/uL (4.2-5.4); RED CELL DISTRIBUTION WIDTH 19.8 % (11.6-14.6)
[2017-08-10 08:00] VITALS: BP 131/78
[2017-08-10 08:54] LABS: PLATELET ESTIMATE NORMAL
[2017-08-10] MEDS: ENOXAPARIN 40MG/0.4ML SYR SUBCUT SCH (09:12)
[2017-08-10] MEDS: AZITHROMYCIN 500 MG TABLET PO SCH (09:12)
[2017-08-10] MEDS: SULFAMETHOXAZOLE/TRIMETHOPRIM 400/80MG TAB PO SCH ×2 (09:13→21:59)
[2017-08-10] MEDS: LOSARTAN POTASSIUM 25 MG TABLET PO SCH (09:13)
[2017-08-10] MEDS: ASPIRIN 81MG EC TABLET PO SCH (09:13)
[2017-08-10] MEDS: LORAZEPAM 0.5MG TABLET PO PRN (10:27)
[2017-08-10] MEDS: HYDROCODONE/ACETAMINOPHEN 10/325MG TABLET PO PRN (10:28)
[2017-08-10 12:00] VITALS: BP 158/90
[2017-08-10] MEDS: LEVOFLOXACIN 500MG PREMIX 100 ML IV SCH (15:08)
[2017-08-10 16:00] VITALS: BP 142/90
[2017-08-10] MEDS: PREDNISONE 20MG TABLET PO SCH (18:23)
[2017-08-10 20:00] VITALS: BP 164/89
[2017-08-10] MEDS: BUDESONIDE 0.5MG/2ML NEB HHN SCH (20:12)
[2017-08-11] VITALS: BP 145/95
[2017-08-11] MEDS: HYDROCODONE/ACETAMINOPHEN 10/325MG TABLET PO PRN ×2 (00:06→08:45)
[2017-08-11] MEDS: IPRATROPIUM/ALBUTEROL 0.5-3(2.5)MG/3ML NEB HHN SCH ×6 (00:30→21:25)
[2017-08-11 04:00] VITALS: BP 141/90
[2017-08-11] MEDS: FUROSEMIDE 40MG/4ML VIAL IV SCH ×2 (05:55→18:40)
[2017-08-11] MEDS: GABAPENTIN 300MG CAPSULE PO SCH ×3 (05:55→21:17)
[2017-08-11 07:30] VITALS: BP 137/95
[2017-08-11] MEDS ORDERED: DIGOXIN 500MCG/2ML AMP IV NR (08:15)
[2017-08-11] MEDS: PREDNISONE 20MG TABLET PO SCH ×2 (08:43→18:40)
[2017-08-11] MEDS: LOSARTAN POTASSIUM 25 MG TABLET PO SCH (08:43)
[2017-08-11] MEDS: ENOXAPARIN 40MG/0.4ML SYR SUBCUT SCH (08:43)
[2017-08-11] MEDS: ASPIRIN 81MG EC TABLET PO SCH (08:43)
[2017-08-11] MEDS: BUDESONIDE 0.5MG/2ML NEB HHN SCH ×2 (08:45→21:24)
[2017-08-11] MEDS: AZITHROMYCIN 500 MG TABLET PO SCH (08:45)
[2017-08-11] MEDS: SULFAMETHOXAZOLE/TRIMETHOPRIM 400/80MG TAB PO SCH ×2 (08:45→21:17)
[2017-08-11] MEDS: METOPROLOL TARTRATE 25MG TABLET PO SCH ×2 (10:00→21:17)
[2017-08-11 11:24] VITALS: BP 121/89
[2017-08-11] MEDS ORDERED: METOPROLOL TARTRATE 25MG TABLET PO SCH (14:15)
[2017-08-11] MEDS: LORAZEPAM 0.5MG TABLET PO PRN ×2 (14:44→21:17)
[2017-08-11 15:45] VITALS: BP 132/79
[2017-08-11 20:00] VITALS: BP 129/99
[2017-08-12] VITALS (9 sets, daily range): BP systolic 120–147; BP diastolic 85–113
[2017-08-12] MEDS: IPRATROPIUM/ALBUTEROL 0.5-3(2.5)MG/3ML NEB HHN SCH ×5 (00:50→20:35)
[2017-08-12] MEDS: GABAPENTIN 300MG CAPSULE PO SCH ×3 (05:41→21:09)
[2017-08-12] MEDS: FUROSEMIDE 40MG/4ML VIAL IV SCH ×2 (07:04→16:29)
[2017-08-12] MEDS: BUDESONIDE 0.5MG/2ML NEB HHN SCH ×2 (09:02→20:36)
[2017-08-12 09:07] LABS: ABSOLUTE LYMPHOCYTES 0.5 x10E3/uL (0.7-3.1); ABSOLUTE MONOCYTES 0.6 x10E3/uL (0.1-0.9); ABSOLUTE NEUTROPHILS 12.1 x10E3/uL (1.4-7.0); BASOPHILS 0 % (Not Estab.); HEMATOCRIT 34.9 % (34.0-46.6); HEMOGLOBIN 9.5 g/dL (11.1-15.9); IMMATURE GRANULOCYTES 0 % (Not Estab.); LYMPHOCYTES 4 % (Not Estab.); MEAN CORPUSCULAR HEMOGLOBIN 22.7 pg (26.6-33.0); MEAN CORPUSCULAR HGB CONC. 27.2 g/dL (31.5-35.7); MEAN CORPUSCULAR VOLUME 84 fL (79-97); MONOCYTES 4 % (Not Estab.); NEUTROPHILS 92 % (Not Estab.); PLATELETS 246 x10E3/uL (150-379); RBC 4.18 x10E6/uL (3.77-5.28); RED CELL DISTRIBUTION WIDTH 17.8 % (12.3-15.4); WBC 13.2 x10E3/uL (3.4-10.8)
[2017-08-12] MEDS: AZITHROMYCIN 500 MG TABLET PO SCH (09:13)
[2017-08-12] MEDS: ASPIRIN 81MG EC TABLET PO SCH (09:13)
[2017-08-12] MEDS: LOSARTAN POTASSIUM 25 MG TABLET PO SCH (09:13)
[2017-08-12] MEDS: PREDNISONE 20MG TABLET PO SCH ×2 (09:13→16:29)
[2017-08-12] MEDS: SULFAMETHOXAZOLE/TRIMETHOPRIM 400/80MG TAB PO SCH ×2 (09:13→22:43)
[2017-08-12] MEDS: METOPROLOL TARTRATE 25MG TABLET PO SCH ×2 (09:13→21:10)
[2017-08-12] MEDS: ENOXAPARIN 40MG/0.4ML SYR SUBCUT SCH (09:14)
[2017-08-12] MEDS: AMIODARONE HCL 900 MG in DEXT 5% WATER 500 ML IV SCH (13:03)
[2017-08-12 15:06] LABS: % CD 3 POS. LYMPHOCYTES 76.4 % (57.5-86.2); % CD 4 POS. LYMPHOCYTES 31.7 % (30.8-58.5); % CD 8 POS. LYMPH 45.6 % (12.0-35.5); ABSOLUTE CD 3 382 (622-2402); ABSOLUTE CD 4 HELPER 159 (359-1519); ABSOLUTE CD 8 SUPPRESSOR 228 (109-897)
[2017-08-12] MEDS: LEVOFLOXACIN 500MG PREMIX 100 ML IV SCH (15:08)
[2017-08-12] MEDS: LORAZEPAM 0.5MG TABLET PO PRN (21:09)
[2017-08-12] MEDS: HYDROCODONE/ACETAMINOPHEN 10/325MG TABLET PO PRN ×2 (22:51→23:29)
[2017-08-13] VITALS (13 sets, daily range): BP systolic 99–134; BP diastolic 62–99
[2017-08-13] MEDS: AMIODARONE HCL 900 MG in DEXT 5% WATER 500 ML IV SCH (00:01)
[2017-08-13] MEDS: GABAPENTIN 300MG CAPSULE PO SCH ×3 (06:26→21:45)
[2017-08-13] MEDS: FUROSEMIDE 40MG/4ML VIAL IV SCH ×2 (08:08→16:41)
[2017-08-13] MEDS: SULFAMETHOXAZOLE/TRIMETHOPRIM 400/80MG TAB PO SCH ×2 (08:08→21:45)
[2017-08-13] MEDS: AZITHROMYCIN 500 MG TABLET PO SCH (08:08)
[2017-08-13] MEDS: METOPROLOL TARTRATE 25MG TABLET PO SCH ×2 (08:14→21:52)
[2017-08-13] MEDS: LOSARTAN POTASSIUM 25 MG TABLET PO SCH (08:14)
[2017-08-13] MEDS: ENOXAPARIN 40MG/0.4ML SYR SUBCUT SCH (08:14)
[2017-08-13] MEDS: ASPIRIN 81MG EC TABLET PO SCH (08:14)
[2017-08-13] MEDS: PREDNISONE 20MG TABLET PO SCH (08:14)
[2017-08-13] MEDS: IPRATROPIUM/ALBUTEROL 0.5-3(2.5)MG/3ML NEB HHN SCH ×4 (09:23→21:06)
[2017-08-13] MEDS: BUDESONIDE 0.5MG/2ML NEB HHN SCH ×2 (09:23→21:05)
[2017-08-13] MEDS ORDERED: AMIODARONE HCL 900 MG in DEXT 5% WATER 482 ML IV PRN (14:30)
[2017-08-13] MEDS ORDERED: BUDESONIDE 0.5MG/2ML NEB HHN SCH (21:00)
[2017-08-13] MEDS: DIPHENHYDRAMINE 50MG/ML VIAL IV PRN (22:31)
[2017-08-14] VITALS (7 sets, daily range): BP systolic 105–158; BP diastolic 81–94
[2017-08-14] MEDS: IPRATROPIUM/ALBUTEROL 0.5-3(2.5)MG/3ML NEB HHN SCH ×3 (00:40→08:48)
[2017-08-14] MEDS: DIPHENHYDRAMINE 50MG/ML VIAL IV PRN (03:19)
[2017-08-14] MEDS: FUROSEMIDE 40MG/4ML VIAL IV SCH (06:31)
[2017-08-14] MEDS: GABAPENTIN 300MG CAPSULE PO SCH (06:31)
[2017-08-14 07:03] LABS: BASOPHILS % 0.1 % (0.0-2.0); EOSINOPHILS % 0.2 % (0.0-5.0); HEMATOCRIT. 32.9 % (36.0-48.0); HEMOGLOBIN. 10.1 g/dL (12.0-16.0); LYMPHOCYTES % 15.8 % (20.0-50.0); MEAN CORPUSCULAR VOLUME 74.9 fL (81.0-99.0); MEAN PLATELET VOLUME 7.8 fl (7.4-10.4); MONOCYTES % 9.4 % (2.0-8.0); NEUTROPHILS % 74.5 % (40.0-76.0); PLATELET 170 x1000/uL (130-400); RED BLOOD CELL COUNT 4.39 mill/uL (4.2-5.4); RED CELL DISTRIBUTION WIDTH 19.3 % (11.6-14.6)
[2017-08-14] MEDS ORDERED: PREDNISONE 20MG TABLET PO SCH (09:00)
[2017-08-14] MEDS: LOSARTAN POTASSIUM 25 MG TABLET PO SCH (09:00)
[2017-08-14] MEDS: SULFAMETHOXAZOLE/TRIMETHOPRIM 400/80MG TAB PO SCH (09:18)
[2017-08-14] MEDS: AZITHROMYCIN 500 MG TABLET PO SCH (09:18)
[2017-08-14] MEDS: ASPIRIN 81MG EC TABLET PO SCH (09:18)
[2017-08-14] MEDS: ENOXAPARIN 40MG/0.4ML SYR SUBCUT SCH (09:20)
[2017-08-14] MEDS ORDERED: DIGOXIN 500MCG/2ML AMP IV NR (09:30)
[2017-08-14] MEDS ORDERED: AMIODARONE HCL 200 MG TABLET PO SCH (10:00)
[2017-08-14] MEDS ORDERED: DIGOXIN 125MCG TABLET PO SCH (18:00)
[2017-08-14] MEDS ORDERED: METOPROLOL TARTRATE 50MG TABLET PO SCH (21:00)
[2017-08-15] MEDS ORDERED: PREDNISONE 20MG TABLET PO SCH (09:00)
== END 2017-08-14 13:05 | disposition left against medical advice (07) | DRG 291 ==
LOC: ER 06:38 → EDBEDREQ 07:29 → 7WST 08:46 → EDBEDREQ 08:51 → EDBEDREQTM 08:51 → ENRESERV 10:39 → 7WST 13:41 → 3WST 08-12 13:57
PROVIDERS: ADMIT Internal Medicine; ATTEND Internal Medicine
DX: I11.0 Hypertensive heart disease with heart failure (principal); J96.21 Acute and chronic respiratory failure with hypoxia; E44.0 Moderate protein-calorie malnutrition; R18.8 Other ascites; I36.1 Nonrheumatic tricuspid (valve) insufficiency; I42.9 Cardiomyopathy, unspecified; I48.0 Paroxysmal atrial fibrillation; I48.92 Unspecified atrial flutter; J44.1 Chronic obstructive pulmonary disease with (acute) exacerbation; I50.43 Acute on chronic combined systolic (congestive) and diastolic (congestive) heart failure; B19.20 Unspecified viral hepatitis C without hepatic coma; D72.829 Elevated white blood cell count, unspecified; F14.10 Cocaine abuse, uncomplicated; F17.210 Nicotine dependence, cigarettes, uncomplicated; K62.3 Rectal prolapse; Z60.2 Problems related to living alone; Z53.21 Procedure and treatment not carried out due to patient leaving prior to being seen by health care provider; I25.10 Atherosclerotic heart disease of native coronary artery without angina pectoris; T38.0X5A Adverse effect of glucocorticoids and synthetic analogues, initial encounter; Z91.14 Patient's other noncompliance with medication regimen; Z79.899 Other long term (current) drug therapy; Z88.0 Allergy status to penicillin; Z99.81 Dependence on supplemental oxygen; Z71.6 Tobacco abuse counseling; Y92.89 Other specified places as the place of occurrence of the external cause; Z68.24 Body mass index [BMI] 24.0-24.9, adult
CPT/HCPCS: 36415; 71045; 80048; 80053; 80061; 80305; 81003; 83880; 84484; 85025; 85610; 85730; 86359; 86360; 93005; 94640; 94664; 96374; 97162; 99285; J0282; J1160; J1200; J1650; J1940; J1956; J2920; J7050; J7060; J7512; J7620; J7626

== ENCOUNTER 2017-09-11 08:05 | Inpatient (IN) | payer MEDICARE, MEDICAID ==
[~2017-09-11] VITALS: Ht 162.6 cm; Wt 72.6 kg
[2017-09-11] MEDS ORDERED: FUROSEMIDE 40MG/4ML VIAL IV STA (09:02)
[2017-09-11] MEDS ORDERED: NITROGLYCERIN OINT 1GM/INCH UDPKT TD STA (09:02)
[2017-09-11] MEDS ORDERED: ASPIRIN 81MG TABLET PO STA (09:04)
[2017-09-11 09:47] LABS: HEMATOCRIT. 31.9 % (36.0-48.0); MEAN CORPUSCULAR HEMOGLOBIN 23.9 pg (28.0-32.0); MEAN CORPUSCULAR VOLUME 76.6 fL (81.0-99.0); MEAN PLATELET VOLUME 7.3 fl (7.4-10.4); PLATELET 243 x1000/uL (130-400); RED BLOOD CELL COUNT 4.16 mill/uL (4.2-5.4); RED CELL DISTRIBUTION WIDTH 19.7 % (11.6-14.6)
[2017-09-11 09:55] LABS: INR 1.2; PARTIAL THROMBOPLASTIN TIME 25.6 sec (23.4-31.0); PROTHROMBIN TIME 12.7 sec (9.4-11.6)
[2017-09-11 10:03] LABS: CHLORIDE 106 mEq/L (98-107)
[2017-09-11 10:55] LABS: PLATELET ESTIMATE NORMAL
[2017-09-11] MEDS ORDERED: ONDANSETRON HCL 4MG/2ML VIAL IV PRN (13:15)
[2017-09-11] MEDS ORDERED: CLONIDINE 0.1MG TABLET PO PRN (13:15)
[2017-09-11] MEDS ORDERED: DOCUSATE SODIUM 100MG CAPSULE PO PRN (13:15)
[2017-09-11] MEDS ORDERED: GUAIFENESIN 200MG/10ML SUGAR FREE UDC PO PRN (13:15)
[2017-09-11] MEDS ORDERED: MAGNESIUM/ALUMINUM HYDROXIDE/SIMETHICONE 30ML UDC PO PRN (13:15)
[2017-09-11] MEDS ORDERED: ACETAMINOPHEN 325MG TABLET PO PRN (13:15)
[2017-09-11] MEDS ORDERED: DIPHENHYDRAMINE 50MG/ML VIAL IV PRN (13:15)
[2017-09-11] MEDS ORDERED: IPRATROPIUM/ALBUTEROL 0.5-3(2.5)MG/3ML NEB INH PRN (13:15)
[2017-09-11] MEDS ORDERED: NA PHOS,M-B/NA PHOS,DI-BA ENEMA 118ML PR PRN (13:15)
[2017-09-11] MEDS ORDERED: MORPHINE SULFATE 4 MG/ML CPJ (NOT FOR IM USE) IV PRN (13:15)
[2017-09-11 16:00] VITALS: BP 114/72
[2017-09-11] MEDS ORDERED: LORAZEPAM 0.5MG TABLET PO PRN (16:00)
[2017-09-11 16:33] VITALS: BP 114/72
[2017-09-11] MEDS: AZITHROMYCIN 500 MG TABLET PO SCH (16:36)
[2017-09-11] MEDS ORDERED: ENOXAPARIN 40MG/0.4ML SYR SUBCUT SCH (17:00)
[2017-09-11 17:38] LABS: CLARITY URINE CLEAR (CLEAR); COLOR URINE YELLOW (YELLOW); KETONES URINE NEGATIVE (NEGATIVE); LEUKOCYTE ESTERASE URINE NEGATIVE (NEGATIVE); NITRITE URINE NEGATIVE (NEGATIVE); OCCULT BLOOD URINE 1+ (NEGATIVE); PH URINE 6.5 (4.5-8.0); PROTEIN URINE NEGATIVE (NEGATIVE); SPECIFIC GRAVITY URINE 1.009 (1.005-1.030)
[2017-09-11 17:51] LABS: *AMPHETAMINES SCREEN URINE NEGATIVE (NEGATIVE); *BARBITURATES SCREEN URINE NEGATIVE (NEGATIVE); *BENZODIAZEPINES SCREEN URINE NEGATIVE (NEGATIVE); *COCAINE SCREEN URINE PRESUMTIVE POSITIVE (NEGATIVE); METHADONE URINE SCREEN NEGATIVE (NEGATIVE); OPIATES URINE SCREEN NEGATIVE (NEGATIVE)
[2017-09-11 17:52] LABS: CANNABINOID URINE SCREEN NEGATIVE (NEGATIVE); PHENCYCLIDINE URINE SCREEN NEGATIVE (NEGATIVE)
[2017-09-11 18:42] LABS: CHLORIDE 108 mEq/L (98-107)
[2017-09-11 20:00] VITALS: BP 123/82
[2017-09-11] MEDS: SULFAMETHOXAZOLE/TRIMETHOPRIM 800/160MG TABLET PO SCH (21:36)
[2017-09-12] VITALS: BP 117/85
[2017-09-12] MEDS: BUDESONIDE 0.5MG/2ML NEB HHN SCH ×3 (00:45→21:08)
[2017-09-12 04:00] VITALS: BP 117/85
[2017-09-12 06:18] LABS: BASOPHILS % 0.8 % (0.0-2.0); EOSINOPHILS % 1.3 % (0.0-5.0); HEMATOCRIT. 28.1 % (36.0-48.0); HEMOGLOBIN. 8.9 g/dL (12.0-16.0); LYMPHOCYTES % 28.3 % (20.0-50.0); MEAN CORPUSCULAR VOLUME 75.6 fL (81.0-99.0); MEAN PLATELET VOLUME 7.5 fl (7.4-10.4); NEUTROPHILS % 55.6 % (40.0-76.0); PLATELET 226 x1000/uL (130-400); RED BLOOD CELL COUNT 3.72 mill/uL (4.2-5.4); RED CELL DISTRIBUTION WIDTH 19.5 % (11.6-14.6)
[2017-09-12 07:09] LABS: CHLORIDE 107 mEq/L (98-107)
[2017-09-12 07:25] LABS: HDL CHOLESTEROL 46 mg/dL (40-59); LDL CHOLESTEROL 40 mg/dL (5-100); T4 FREE 1.32 ng/dL (0.76-1.46)
[2017-09-12 08:00] VITALS: BP 125/89
[2017-09-12] MEDS ORDERED: SODIUM BICARBONATE 4% (2.4MEQ) 5ML VIAL IV ONE (08:10)
[2017-09-12] MEDS: FUROSEMIDE 40MG/4ML VIAL IV SCH (09:58)
[2017-09-12] MEDS: PANTOPRAZOLE SODIUM 40 MG/VIAL IV SCH (09:58)
[2017-09-12] MEDS: SULFAMETHOXAZOLE/TRIMETHOPRIM 800/160MG TABLET PO SCH ×2 (09:59→21:42)
[2017-09-12] MEDS: AZITHROMYCIN 500 MG TABLET PO SCH (09:59)
[2017-09-12 12:00] VITALS: BP 114/80
[2017-09-12 15:35] LABS: TOTAL IRON BINDING CAPACITY 331 ug/dL (250-450)
[2017-09-12 16:00] VITALS: BP 104/68
[2017-09-12] MEDS: SPIRONOLACTONE 100MG TABLET PO SCH (18:22)
[2017-09-12] MEDS: HYDROCODONE/APAP 7.5/325MG 1 TAB TABLET PO PRN (19:42)
[2017-09-12 20:00] VITALS: BP 99/64
[2017-09-13] VITALS: BP 91/56
[2017-09-13 04:00] VITALS: BP 97/50
[2017-09-13] MEDS: BUDESONIDE 0.5MG/2ML NEB HHN SCH (07:14)
[2017-09-13 07:30] VITALS: BP 105/67
[2017-09-13] MEDS: SPIRONOLACTONE 100MG TABLET PO SCH (09:01)
[2017-09-13] MEDS: PANTOPRAZOLE SODIUM 40 MG/VIAL IV SCH (09:01)
[2017-09-13] MEDS: AZITHROMYCIN 500 MG TABLET PO SCH (09:01)
[2017-09-13] MEDS: FUROSEMIDE 40MG/4ML VIAL IV SCH (09:01)
[2017-09-13] MEDS: SULFAMETHOXAZOLE/TRIMETHOPRIM 800/160MG TABLET PO SCH (09:02)
[2017-09-13] MEDS: HYDROCODONE/APAP 7.5/325MG 1 TAB TABLET PO PRN (09:02)
[2017-09-13 12:05] VITALS: BP 94/60
[2017-09-13 13:46] VITALS: BP 94/60
== END 2017-09-13 15:15 | disposition home or self-care (01) | DRG 291 ==
LOC: ER 08:05 → ENRESERV 10:08 → 6WST 12:53 → EDBEDREQ 12:56
PROVIDERS: ADMIT Internal Medicine; ATTEND Internal Medicine
PROC: 0W9G3ZX Drainage of Peritoneal Cavity, Percutaneous Approach, Diagnostic (ICD-10-PCS; principal; 2017-09-12)
DX: I11.0 Hypertensive heart disease with heart failure (principal); J96.20 Acute and chronic respiratory failure, unspecified whether with hypoxia or hypercapnia; E44.0 Moderate protein-calorie malnutrition; I27.20 Pulmonary hypertension, unspecified; R18.8 Other ascites; J44.1 Chronic obstructive pulmonary disease with (acute) exacerbation; I48.0 Paroxysmal atrial fibrillation; B19.20 Unspecified viral hepatitis C without hepatic coma; D50.9 Iron deficiency anemia, unspecified; F14.10 Cocaine abuse, uncomplicated; F17.210 Nicotine dependence, cigarettes, uncomplicated; I25.10 Atherosclerotic heart disease of native coronary artery without angina pectoris; I25.2 Old myocardial infarction; I25.5 Ischemic cardiomyopathy; I50.43 Acute on chronic combined systolic (congestive) and diastolic (congestive) heart failure; K62.3 Rectal prolapse; Z21 Asymptomatic human immunodeficiency virus [HIV] infection status; Z91.14 Patient's other noncompliance with medication regimen; Z88.0 Allergy status to penicillin; Z68.27 Body mass index [BMI] 27.0-27.9, adult
CPT/HCPCS: 36415; 49083; 71045; 76700; 80048; 80053; 80061; 80305; 81003; 82040; 82105; 82270; 83540; 83550; 83615; 83880; 84439; 84443; 84484; 85025; 85610; 85730; 87070; 87205; 89050; 93005; C9113; J1650; J1940; J2405; J3490; J7620; J7626; A4315

== ENCOUNTER 2017-10-25 23:01 | Inpatient (IN) | payer MEDICARE, MEDICAID ==
[~2017-10-25] VITALS: Ht 167.6 cm; Wt 65.8 kg
[2017-10-26] MEDS ORDERED: ONDANSETRON HCL 4MG/2ML VIAL IV STA (00:08)
[2017-10-26] MEDS ORDERED: MORPHINE SULFATE 4 MG/ML CPJ (NOT FOR IM USE) IV STA (00:08)
[2017-10-26 00:36] LABS: BASOPHILS % 0.4 % (0.0-2.0); EOSINOPHILS % 0.1 % (0.0-5.0); HEMATOCRIT. 33.1 % (36.0-48.0); HEMOGLOBIN. 10.1 g/dL (12.0-16.0); LYMPHOCYTES % 16.3 % (20.0-50.0); MEAN CORPUSCULAR HEMOGLOBIN 22.3 pg (28.0-32.0); MEAN CORPUSCULAR VOLUME 73.2 fL (81.0-99.0); MEAN PLATELET VOLUME 7.1 fl (7.4-10.4); MONOCYTES % 9.9 % (2.0-8.0); NEUTROPHILS % 73.3 % (40.0-76.0); PLATELET 233 x1000/uL (130-400); RED BLOOD CELL COUNT 4.52 mill/uL (4.2-5.4); RED CELL DISTRIBUTION WIDTH 18.5 % (11.6-14.6)
[2017-10-26 00:43] LABS: CHLORIDE 111 mEq/L (98-107)
[2017-10-26 00:45] LABS: INR 1.6; PROTHROMBIN TIME 16.3 sec (9.4-11.6)
[2017-10-26 08:02] LABS: KETONES URINE NEGATIVE (NEGATIVE); LEUKOCYTE ESTERASE URINE 1+ (NEGATIVE); NITRITE URINE NEGATIVE (NEGATIVE); OCCULT BLOOD URINE NEGATIVE (NEGATIVE); PH URINE 5.5 (4.5-8.0); PROTEIN URINE 1+ (NEGATIVE); SPECIFIC GRAVITY URINE 1.023 (1.005-1.030)
[2017-10-26 08:03] LABS: CLARITY URINE CLEAR (CLEAR); COLOR URINE YELLOW (YELLOW)
[2017-10-26] MEDS ORDERED: SODIUM BICARBONATE 4% (2.4MEQ) 5ML VIAL IV ONE (08:05)
[2017-10-26] MEDS ORDERED: LIDOCAINE HCL/PF 1% 10 MG/ML 5ML VIAL ONE (08:07)
[2017-10-26] MEDS ORDERED: OLAN10TA19 PO (11:51)
[2017-10-26] MEDS ORDERED: FURO20TA4 PO (11:51)
[2017-10-26 12:00] VITALS: BP 99/64
[2017-10-26] MEDS ORDERED: ONDANSETRON HCL 4MG/2ML VIAL IV PRN (13:30)
[2017-10-26] MEDS ORDERED: ENOXAPARIN 40MG/0.4ML SYR SUBCUT SCH (13:30)
[2017-10-26] MEDS ORDERED: ACETAMINOPHEN 325MG TABLET PO PRN (13:30)
[2017-10-26] MEDS ORDERED: FUROSEMIDE 40MG/4ML VIAL IVP NR (14:00)
[2017-10-26] MEDS: SPIRONOLACTONE 50MG TABLET PO SCH (14:00)
[2017-10-26] MEDS: DOCUSATE SODIUM 100MG CAPSULE PO SCH ×2 (14:09→19:24)
[2017-10-26 16:00] VITALS: BP 94/65
[2017-10-26 17:53] LABS: HEPATITIS B SURFACE ANTIGEN NEGATIVE
[2017-10-26] MEDS: HYDROCORTISONE ACETATE 25MG SUPP PR SCH (18:00)
[2017-10-26 20:00] VITALS: BP 99/64
[2017-10-26] MEDS ORDERED: DIPHENHYDRAMINE 50MG/ML VIAL IV NR (21:30)
[2017-10-27] VITALS: BP 108/70
[2017-10-27] MEDS ORDERED: DIPHENHYDRAMINE 50MG/ML VIAL IV NR (00:05)
[2017-10-27 04:00] VITALS: BP 109/62
[2017-10-27 04:18] LABS: *AMPHETAMINES SCREEN URINE NEGATIVE (NEGATIVE); *BARBITURATES SCREEN URINE NEGATIVE (NEGATIVE); *BENZODIAZEPINES SCREEN URINE NEGATIVE (NEGATIVE)
[2017-10-27 04:19] LABS: *COCAINE SCREEN URINE PRESUMTIVE POSITIVE (NEGATIVE); CANNABINOID URINE SCREEN NEGATIVE (NEGATIVE); METHADONE URINE SCREEN NEGATIVE (NEGATIVE); OPIATES URINE SCREEN PRESUMTIVE POSITIVE (NEGATIVE); PHENCYCLIDINE URINE SCREEN NEGATIVE (NEGATIVE)
[2017-10-27] MEDS: HYDROCORTISONE ACETATE 25MG SUPP PR SCH ×2 (06:00→17:13)
[2017-10-27 06:11] LABS: BASOPHILS % 0.3 % (0.0-2.0); EOSINOPHILS % 0.8 % (0.0-5.0); HEMATOCRIT. 31.1 % (36.0-48.0); HEMOGLOBIN. 9.5 g/dL (12.0-16.0); LYMPHOCYTES % 24.8 % (20.0-50.0); MEAN CORPUSCULAR HEMOGLOBIN 22.6 pg (28.0-32.0); MEAN CORPUSCULAR VOLUME 73.7 fL (81.0-99.0); MEAN PLATELET VOLUME 7.2 fl (7.4-10.4); NEUTROPHILS % 62.1 % (40.0-76.0); PLATELET 166 x1000/uL (130-400); RED BLOOD CELL COUNT 4.22 mill/uL (4.2-5.4)
[2017-10-27 06:37] LABS: CHLORIDE 112 mEq/L (98-107)
[2017-10-27 08:00] VITALS: BP 112/81
[2017-10-27] MEDS: GABAPENTIN 300MG CAPSULE PO SCH ×2 (08:11→13:33)
[2017-10-27] MEDS: GUAIFENESIN-DM 200MG-20MG/10ML UDC PO PRN ×2 (08:11→17:16)
[2017-10-27] MEDS: SPIRONOLACTONE 50MG TABLET PO SCH (08:11)
[2017-10-27] MEDS: DOCUSATE SODIUM 100MG CAPSULE PO SCH ×2 (08:11→16:05)
[2017-10-27 12:00] VITALS: BP 115/71
[2017-10-27 15:10] LABS: CHLORIDE 110 mEq/L (98-107)
[2017-10-27 16:00] VITALS: BP 96/68
[2017-10-27 18:12] VITALS: BP 96/68
[2017-10-27] MEDS ORDERED: OLANZAPINE 10MG TABLET PO SCH (21:00)
[2017-10-29 09:06] LABS: ABSOLUTE EOSINOPHILS 0.1 x10E3/uL (0.0-0.4); ABSOLUTE LYMPHOCYTES 1.8 x10E3/uL (0.7-3.1); ABSOLUTE MONOCYTES 0.6 x10E3/uL (0.1-0.9); BASOPHILS 0 % (Not Estab.); HEMATOCRIT 36.8 % (34.0-46.6); HEMOGLOBIN 10.3 g/dL (11.1-15.9); IMMATURE GRANULOCYTES 0 % (Not Estab.); LYMPHOCYTES 28 % (Not Estab.); MEAN CORPUSCULAR VOLUME 79 fL (79-97); MONOCYTES 9 % (Not Estab.); NEUTROPHILS 62 % (Not Estab.); PLATELETS 205 x10E3/uL (150-379); RBC 4.69 x10E6/uL (3.77-5.28); RED CELL DISTRIBUTION WIDTH 17.2 % (12.3-15.4); WBC 6.5 x10E3/uL (3.4-10.8)
[2017-10-29 13:07] LABS: % CD 3 POS. LYMPHOCYTES 90.6 % (57.5-86.2); % CD 4 POS. LYMPHOCYTES 39.6 % (30.8-58.5); % CD 8 POS. LYMPH 50.7 % (12.0-35.5); ABSOLUTE CD 3 1631 /uL (622-2402); ABSOLUTE CD 4 HELPER 713 /uL (359-1519); ABSOLUTE CD 8 SUPPRESSOR 913 /uL (109-897); CD4/CD8 RATIO 0.78 (0.92-3.72)
== END 2017-10-27 19:17 | disposition home or self-care (01) | DRG 682 ==
LOC: ER 23:26 → 6WST 10-26 00:21 → EDBEDREQTM 10-26 00:26 → EDBEDREQ 10-26 00:26 → UNDOADMIN 10-26 06:09 → 6WST 10-26 06:09 → ENRESERV 10-26 09:52
PROVIDERS: ADMIT Internal Medicine; ATTEND Internal Medicine
PROC: 0W9G3ZZ Drainage of Peritoneal Cavity, Percutaneous Approach (ICD-10-PCS; principal; 2017-10-26)
DX: N17.9 Acute kidney failure, unspecified (principal); I50.43 Acute on chronic combined systolic (congestive) and diastolic (congestive) heart failure; R18.8 Other ascites; I48.0 Paroxysmal atrial fibrillation; I25.5 Ischemic cardiomyopathy; J44.9 Chronic obstructive pulmonary disease, unspecified; I25.10 Atherosclerotic heart disease of native coronary artery without angina pectoris; N39.0 Urinary tract infection, site not specified; I11.0 Hypertensive heart disease with heart failure; R74.0 Nonspecific elevation of levels of transaminase and lactic acid dehydrogenase [LDH]; D64.9 Anemia, unspecified; R80.9 Proteinuria, unspecified; F14.10 Cocaine abuse, uncomplicated; B19.20 Unspecified viral hepatitis C without hepatic coma; M35.9 Systemic involvement of connective tissue, unspecified; Z86.19 Personal history of other infectious and parasitic diseases; Z88.0 Allergy status to penicillin; Z79.899 Other long term (current) drug therapy; Z72.0 Tobacco use; Z91.14 Patient's other noncompliance with medication regimen
CPT/HCPCS: 36415; 49083; 71045; 76770; 80048; 80053; 80305; 81003; 83690; 83735; 83880; 84484; 85025; 85379; 85610; 86140; 86359; 86360; 86803; 87340; 93005; 93970; J1200; J1940; J2270; J2405; J3490

== ENCOUNTER 2018-05-05 03:45 | Inpatient (IN) | payer MEDICARE, MEDICAID ==
[~2018-05-05] VITALS: Ht 170.2 cm; Wt 60.3 kg
[~2018-05-05 03:45] MED LIST changes: -ALEN70TA46 PO; -CEPH-569 PO; -DESCOVY PO; -DILT120C11 MT; -DILT180C54 PO; -DOLU50TA PO; +GABA-529 PO; -GABA-531 PO; -LISI10TA5 PO; -METO-539 PO; +OLAN10TA19 PO; -OLAN10TA3 PO; -RIVA10TA PO; -SPIR25TA4 PO; -[UNRECOGNIZED DRUG - OTHER] PO
[2018-05-05] MEDS ORDERED: IPRATROPIUM BROMIDE (0.02%) 0.5MG/2.5ML NEB HHN STA (04:10)
[2018-05-05] MEDS ORDERED: ALBUTEROL (0.083%) 2.5MG/3ML NEB HHN STA (04:10)
[2018-05-05] MEDS ORDERED: METHYLPREDNISOLONE SOD SUCC 125 MG/2 ML VIAL IV ONE (04:15)
[2018-05-05 05:39] LABS: BASOPHILS % 0.8 % (0.0-2.0); EOSINOPHILS % 3.6 % (0.0-5.0); HEMATOCRIT. 38.2 % (36.0-48.0); HEMOGLOBIN. 11.9 g/dL (12.0-16.0); LYMPHOCYTES % 29.8 % (20.0-50.0); MEAN CORPUSCULAR VOLUME 80.1 fL (81.0-99.0); MEAN PLATELET VOLUME 8.3 fl (7.4-10.4); MONOCYTES % 9.8 % (2.0-8.0); PLATELET 170 x1000/uL (130-400); RED BLOOD CELL COUNT 4.77 mill/uL (4.2-5.4); RED CELL DISTRIBUTION WIDTH 17.6 % (11.6-14.6)
[2018-05-05 05:41] LABS: CHLORIDE 108 mEq/L (98-107)
[2018-05-05 06:00] LABS: INR 1.2; PARTIAL THROMBOPLASTIN TIME 27.5 sec (23.4-31.0); PROTHROMBIN TIME 12.4 sec (9.1-11.1)
[2018-05-05 16:30] VITALS: BP 131/96
[2018-05-05 17:23] VITALS: BP 131/96
[2018-05-05] MEDS ORDERED: ACETAMINOPHEN 325MG TABLET PO PRN (17:45)
[2018-05-05] MEDS ORDERED: POTA20TA82 MT (19:08)
[2018-05-05] MEDS ORDERED: FURO40TA5 MT (19:08)
[2018-05-05] MEDS ORDERED: SPIR25TA6 MT (19:08)
[2018-05-05] MEDS ORDERED: AMIO400T2 PO (19:08)
[2018-05-05] MEDS ORDERED: GABA-531 MT (19:08)
[2018-05-05] MEDS ORDERED: NAPR-681 MT (19:08)
[2018-05-05 20:00] VITALS: BP_SYST 110; BP_SYST 131; BP_DIAS 59; BP_DIAS 91
[2018-05-05] MEDS: IPRATROPIUM/ALBUTEROL 0.5-3(2.5)MG/3ML NEB HHN SCH (20:45)
[2018-05-05] MEDS: OLANZAPINE 10MG TABLET PO SCH (21:00)
[2018-05-05] MEDS: METHYLPREDNISOLONE SOD SUCC 40 MG/ML VIAL IV SCH (21:28)
[2018-05-05] MEDS ORDERED: GABAPENTIN 300MG CAPSULE PO PRN (22:00)
[2018-05-06] VITALS: BP 144/96
[2018-05-06] MEDS: IPRATROPIUM/ALBUTEROL 0.5-3(2.5)MG/3ML NEB HHN SCH ×6 (00:07→20:56)
[2018-05-06 04:00] VITALS: BP 107/75
[2018-05-06] MEDS: METHYLPREDNISOLONE SOD SUCC 40 MG/ML VIAL IV SCH (06:32)
[2018-05-06] MEDS ORDERED: FUROSEMIDE 40MG TABLET PO SCH (09:00)
[2018-05-06] MEDS: SPIRONOLACTONE 25MG TABLET PO SCH (09:12)
[2018-05-06] MEDS: AMIODARONE HCL 200 MG TABLET PO SCH (09:12)
[2018-05-06] MEDS: POTASSIUM CHLORIDE 20MEQ TABLET SR PO SCH ×2 (09:12→17:35)
[2018-05-06] MEDS: NAPROXEN 250MG TABLET PO SCH ×2 (09:12→17:35)
[2018-05-06 12:00] VITALS: BP 145/88
[2018-05-06] MEDS: FUROSEMIDE 100MG/10ML VIAL IVP SCH ×2 (12:31→17:35)
[2018-05-06 16:00] VITALS: BP 138/80
[2018-05-06] MEDS: BUDESONIDE 0.5MG/2ML NEB HHN SCH (17:13)
[2018-05-06 20:00] VITALS: BP 125/82
[2018-05-06] MEDS: OLANZAPINE 10MG TABLET PO SCH (23:07)
[2018-05-07] VITALS (7 sets, daily range): BP systolic 98–125; BP diastolic 68–92
[2018-05-07] MEDS: IPRATROPIUM/ALBUTEROL 0.5-3(2.5)MG/3ML NEB HHN SCH ×6 (01:05→21:17)
[2018-05-07] MEDS: BUDESONIDE 0.5MG/2ML NEB HHN SCH ×3 (01:05→21:17)
[2018-05-07] MEDS: FUROSEMIDE 100MG/10ML VIAL IVP SCH ×3 (06:22→19:45)
[2018-05-07 08:17] LABS: CLARITY URINE CLEAR (CLEAR); COLOR URINE YELLOW (YELLOW); KETONES URINE NEGATIVE (NEGATIVE); LEUKOCYTE ESTERASE URINE TRACE (NEGATIVE); NITRITE URINE NEGATIVE (NEGATIVE); OCCULT BLOOD URINE TRACE (NEGATIVE); PH URINE N (4.5-8.0); PROTEIN URINE NEGATIVE (NEGATIVE); SPECIFIC GRAVITY URINE 1.006 (1.005-1.030)
[2018-05-07 09:35] LABS: BASOPHILS % 0.1 % (0.0-2.0); EOSINOPHILS % 0.1 % (0.0-5.0); HEMATOCRIT. 35.1 % (36.0-48.0); LYMPHOCYTES % 13.3 % (20.0-50.0); MEAN CORPUSCULAR HEMOGLOBIN 24.7 pg (28.0-32.0); MEAN CORPUSCULAR VOLUME 78.8 fL (81.0-99.0); MEAN PLATELET VOLUME 8.4 fl (7.4-10.4); MONOCYTES % 6.5 % (2.0-8.0); PLATELET 175 x1000/uL (130-400); RED BLOOD CELL COUNT 4.46 mill/uL (4.2-5.4); RED CELL DISTRIBUTION WIDTH 17.5 % (11.6-14.6)
[2018-05-07] MEDS: POTASSIUM CHLORIDE 20MEQ TABLET SR PO SCH ×2 (09:57→19:42)
[2018-05-07] MEDS: AMIODARONE HCL 200 MG TABLET PO SCH (09:57)
[2018-05-07] MEDS: SPIRONOLACTONE 25MG TABLET PO SCH (09:58)
[2018-05-07] MEDS: NAPROXEN 250MG TABLET PO SCH ×2 (09:58→19:43)
[2018-05-07 10:32] LABS: *AMPHETAMINES SCREEN URINE NEGATIVE (NEGATIVE); *BARBITURATES SCREEN URINE NEGATIVE (NEGATIVE); *BENZODIAZEPINES SCREEN URINE NEGATIVE (NEGATIVE); *COCAINE SCREEN URINE NEGATIVE (NEGATIVE); CANNABINOID URINE SCREEN NEGATIVE (NEGATIVE); METHADONE URINE SCREEN NEGATIVE (NEGATIVE); OPIATES URINE SCREEN NEGATIVE (NEGATIVE); PHENCYCLIDINE URINE SCREEN NEGATIVE (NEGATIVE)
[2018-05-07] MEDS ORDERED: LIDOCAINE HCL 1% 20ML VIAL (Pyxis) INJ ONE (14:34)
[2018-05-07] MEDS ORDERED: SODIUM BICARBONATE 4% (2.4MEQ) 5ML VIAL IV ONE (14:35)
[2018-05-07] MEDS: OLANZAPINE 10MG TABLET PO SCH (22:20)
[2018-05-08] VITALS: BP 99/68
[2018-05-08] MEDS: IPRATROPIUM/ALBUTEROL 0.5-3(2.5)MG/3ML NEB HHN SCH ×6 (03:40→20:31)
[2018-05-08 04:00] VITALS: BP 99/79
[2018-05-08 05:28] LABS: BASOPHILS % 0.3 % (0.0-2.0); HEMATOCRIT. 35.1 % (36.0-48.0); LYMPHOCYTES % 25.2 % (20.0-50.0); MEAN CORPUSCULAR HEMOGLOBIN 24.6 pg (28.0-32.0); MEAN CORPUSCULAR VOLUME 78.6 fL (81.0-99.0); MEAN PLATELET VOLUME 8.5 fl (7.4-10.4); MONOCYTES % 8.9 % (2.0-8.0); NEUTROPHILS % 63.6 % (40.0-76.0); PLATELET 166 x1000/uL (130-400); RED BLOOD CELL COUNT 4.46 mill/uL (4.2-5.4); RED CELL DISTRIBUTION WIDTH 16.9 % (11.6-14.6)
[2018-05-08] MEDS: FUROSEMIDE 100MG/10ML VIAL IVP SCH ×2 (06:40→16:45)
[2018-05-08 08:00] VITALS: BP 108/83
[2018-05-08] MEDS: NAPROXEN 250MG TABLET PO SCH ×3 (08:02→22:30)
[2018-05-08] MEDS: SPIRONOLACTONE 25MG TABLET PO SCH (08:02)
[2018-05-08] MEDS: POTASSIUM CHLORIDE 20MEQ TABLET SR PO SCH ×2 (08:02→16:45)
[2018-05-08] MEDS: AMIODARONE HCL 200 MG TABLET PO SCH (08:03)
[2018-05-08] MEDS: BUDESONIDE 0.5MG/2ML NEB HHN SCH ×2 (09:42→20:31)
[2018-05-08 12:00] VITALS: BP 103/70
[2018-05-08 16:00] VITALS: BP 96/69
[2018-05-08 20:00] VITALS: BP 113/79
[2018-05-08] MEDS: OLANZAPINE 10MG TABLET PO SCH (23:07)
[2018-05-09] VITALS: BP 101/67
[2018-05-09] MEDS: IPRATROPIUM/ALBUTEROL 0.5-3(2.5)MG/3ML NEB HHN SCH ×4 (01:05→12:00)
[2018-05-09] MEDS: NAPROXEN 250MG TABLET PO SCH ×2 (02:52→04:52)
[2018-05-09 04:00] VITALS: BP 92/61
[2018-05-09] MEDS: FUROSEMIDE 100MG/10ML VIAL IVP SCH (06:03)
[2018-05-09 08:00] VITALS: BP 110/70
[2018-05-09] MEDS: BUDESONIDE 0.5MG/2ML NEB HHN SCH (08:25)
[2018-05-09] MEDS: SPIRONOLACTONE 25MG TABLET PO SCH (08:39)
[2018-05-09] MEDS: AMIODARONE HCL 200 MG TABLET PO SCH (08:39)
[2018-05-09] MEDS: POTASSIUM CHLORIDE 20MEQ TABLET SR PO SCH (08:39)
[2018-05-09 08:51] LABS: BASOPHILS % 0.5 % (0.0-2.0); EOSINOPHILS % 3.1 % (0.0-5.0); HEMATOCRIT. 37.6 % (36.0-48.0); LYMPHOCYTES % 25.3 % (20.0-50.0); MEAN CORPUSCULAR HEMOGLOBIN 24.9 pg (28.0-32.0); MEAN CORPUSCULAR VOLUME 78.1 fL (81.0-99.0); MEAN PLATELET VOLUME 8.1 fl (7.4-10.4); MONOCYTES % 9.6 % (2.0-8.0); NEUTROPHILS % 61.5 % (40.0-76.0); PLATELET 175 x1000/uL (130-400); RED BLOOD CELL COUNT 4.81 mill/uL (4.2-5.4); RED CELL DISTRIBUTION WIDTH 17.4 % (11.6-14.6)
[2018-05-09 12:12] VITALS: BP 106/73
== END 2018-05-09 14:35 | disposition home or self-care (01) | DRG 917 ==
LOC: ER 03:45 → 5WST 06:34 → EDBEDREQTM 06:37 → EDBEDREQ 06:37 → ENRESERV 14:41
PROVIDERS: ADMIT Internal Medicine; ATTEND Internal Medicine
PROC: 0W9G3ZZ Drainage of Peritoneal Cavity, Percutaneous Approach (ICD-10-PCS; principal; 2018-05-07)
DX: T40.5X1A Poisoning by cocaine, accidental (unintentional), initial encounter (principal); J96.00 Acute respiratory failure, unspecified whether with hypoxia or hypercapnia; I50.23 Acute on chronic systolic (congestive) heart failure; J68.0 Bronchitis and pneumonitis due to chemicals, gases, fumes and vapors; E44.1 Mild protein-calorie malnutrition; J44.1 Chronic obstructive pulmonary disease with (acute) exacerbation; N17.9 Acute kidney failure, unspecified; R18.8 Other ascites; I42.0 Dilated cardiomyopathy; I11.0 Hypertensive heart disease with heart failure; G62.9 Polyneuropathy, unspecified; I27.20 Pulmonary hypertension, unspecified; I08.1 Rheumatic disorders of both mitral and tricuspid valves; K74.60 Unspecified cirrhosis of liver; F14.90 Cocaine use, unspecified, uncomplicated; F19.10 Other psychoactive substance abuse, uncomplicated; K43.9 Ventral hernia without obstruction or gangrene; I48.91 Unspecified atrial fibrillation; F17.210 Nicotine dependence, cigarettes, uncomplicated; B19.20 Unspecified viral hepatitis C without hepatic coma; E87.8 Other disorders of electrolyte and fluid balance, not elsewhere classified; Y92.89 Other specified places as the place of occurrence of the external cause; Z87.440 Personal history of urinary (tract) infections; Z99.81 Dependence on supplemental oxygen; Z68.20 Body mass index [BMI] 20.0-20.9, adult; Z88.0 Allergy status to penicillin; Z79.899 Other long term (current) drug therapy; Z71.6 Tobacco abuse counseling; Z71.3 Dietary counseling and surveillance; Z71.51 Drug abuse counseling and surveillance of drug abuser
CPT/HCPCS: 36415; 49083; 71045; 76705; 80048; 80305; 83605; 83880; 84484; 93005; 94640; 99285; J1940; J2920; J2930; J3490; J7611; J7620; J7626

== ENCOUNTER 2018-05-28 06:51 | Inpatient (IN) | payer MEDICARE, MEDICAID ==
[2018-05-28] VITALS (21 sets, daily range): BP systolic 71–109; BP diastolic 49–88
[~2018-05-28] VITALS: Ht 167.6 cm; Wt 55.9 kg
[~2018-05-28 06:51] MED LIST changes: +AMIO400T2 PO; -GABA-529 PO; +GABA-531 MT; +NAPR-681 MT; +POTA20TA82 MT; +SPIR25TA6 MT
[2018-05-28] MEDS ORDERED: ALBUTEROL (0.083%) 2.5MG/3ML NEB HHN STA (07:37)
[2018-05-28] MEDS ORDERED: IPRATROPIUM BROMIDE (0.02%) 0.5MG/2.5ML NEB HHN STA (07:37)
[2018-05-28] MEDS ORDERED: ONDANSETRON HCL 4MG/2ML INJ IV STA (07:39)
[2018-05-28] MEDS ORDERED: MORPHINE SULFATE 4 MG/ML CPJ (NOT FOR IM USE) IV STA (07:39)
[2018-05-28] MEDS ORDERED: MORPHINE SULFATE 10 MG/ML CPJ IV NR (08:15)
[2018-05-28 08:32] LABS: HEMATOCRIT. 37.1 % (36.0-48.0); HEMOGLOBIN. 11.7 g/dL (12.0-16.0); MEAN CORPUSCULAR HEMOGLOBIN 24.2 pg (28.0-32.0); MEAN CORPUSCULAR VOLUME 76.8 fL (81.0-99.0); MEAN PLATELET VOLUME 8.1 fl (7.4-10.4); PLATELET 161 x1000/uL (130-400); RED BLOOD CELL COUNT 4.84 mill/uL (4.2-5.4); RED CELL DISTRIBUTION WIDTH 18.3 % (11.6-14.6)
[2018-05-28 08:38] LABS: CHLORIDE 108 mEq/L (98-107)
[2018-05-28 08:39] LABS: CLARITY URINE TURBID (CLEAR); COLOR URINE DARK YELLOW (YELLOW); KETONES URINE NEGATIVE (NEGATIVE); LEUKOCYTE ESTERASE URINE 1+ (NEGATIVE); NITRITE URINE NEGATIVE (NEGATIVE); OCCULT BLOOD URINE TRACE (NEGATIVE); PROTEIN URINE 2+ (NEGATIVE); SPECIFIC GRAVITY URINE 1.025 (1.005-1.030)
[2018-05-28 08:40] LABS: INR 1.5; PROTHROMBIN TIME 14.5 sec (9.1-11.1)
[2018-05-28 08:53] LABS: PLATELET ESTIMATE NORMAL
[2018-05-28] MEDS ORDERED: LEVOFLOXACIN 750MG PREMIX 150 ML IV NR (09:15)
[2018-05-28] MEDS ORDERED: VANCOMYCIN 1 G PREMIX 200 ML IV NR (09:15)
[2018-05-28] MEDS: SODIUM CHLORIDE 0.9% 1000ML BAG (SEPSIS BOLUS) IV NR ×2 (09:18→14:42)
[2018-05-28] MEDS ORDERED: AZTREONAM 2 GM in DEXT 5% WATER 100 ML IV NR (09:30)
[2018-05-28] MEDS ORDERED: DILTIAZEM HCL 5MG/ML 5ML VIAL IV ONE (11:00)
[2018-05-28] MEDS ORDERED: ACETAMINOPHEN 325MG TABLET PO ONE ×2 (11:00)
[2018-05-28] MEDS ORDERED: LIDOCAINE HCL 1% 20ML VIAL (Pyxis) INJ ONE (11:49)
[2018-05-28] MEDS ORDERED: PROPOFOL 200MG/20ML VIAL IV ONE ×2 (12:30→13:15)
[2018-05-28] MEDS ORDERED: NOREPINEPHRINE 4MG/250ML PMX 250 ML IV ONE ×2 (13:15→13:16)
[2018-05-28] MEDS ORDERED: NOREPINEPHRINE 4 MG in DEXT 5% WATER 246 ML IV ONE (13:15)
[2018-05-28] MEDS ORDERED: IPRATROPIUM/ALBUTEROL 0.5-3(2.5)MG/3ML NEB HHN PRN ×2 (13:15→13:30)
[2018-05-28] MEDS ORDERED: MIDAZOLAM HCL 2 MG/2 ML VIAL IV ONE ×2 (14:00→15:30)
[2018-05-28] MEDS ORDERED: MIDAZOLAM HCL 2 MG/2 ML VIAL ONE (14:03)
[2018-05-28 14:15] LABS: BG BASE EXCESS -7.5 mmol/L (-2.0-2.0); BG CARBOXYHEMOGLOBIN 1.4 % (0.5-1.5); BG DEOXYHEMOGLOBIN 4.1 % (0.0-5.0); BG FRACTION INSPIRED OXYGEN 100; BG METHEMOGLOBIN 0.3 % (0.0-1.5); BG OXYGEN SATURATION 95.8 % (92.0-98.5); BG OXYHEMOGLOBIN 94.2 % (94.0-97.0); BG PCO2 56.5 mmHg (35.0-45.0); BG PH 7.189 (7.350-7.450); BG PO2 100.6 mmHg (75.0-100.0); BG SAMPLE SITE LEFT BRACHIAL; BG TIDAL VOLUME(mL) 500 mL; BG TOTAL HEMOGLOBIN 12.2 g/dL (12.0-18.0); BG VENT MODE VENT - A/C; BG VENT RATE 16 set
[2018-05-28] MEDS ORDERED: ETOMIDATE 2MG/ML 10ML VIAL IV ONE (14:17)
[2018-05-28] MEDS ORDERED: SUCCINYLCHOLINE CHLORIDE 200MG/10ML IV ONE (14:17)
[2018-05-28] MEDS ORDERED: PROPOFOL 10MG/ML 100ML 100 ML IV PRN (15:00)
[2018-05-28] MEDS ORDERED: METRONIDAZOLE 500 MG PREMIX 100 ML IV SCH (15:00)
[2018-05-28 15:35] LABS: *BENZODIAZEPINES SCREEN URINE NEGATIVE (NEGATIVE); *COCAINE SCREEN URINE PRESUMTIVE POSITIVE (NEGATIVE); METHADONE URINE SCREEN NEGATIVE (NEGATIVE); OPIATES URINE SCREEN PRESUMTIVE POSITIVE (NEGATIVE); PHENCYCLIDINE URINE SCREEN NEGATIVE (NEGATIVE)
[2018-05-28 15:36] LABS: *AMPHETAMINES SCREEN URINE NEGATIVE (NEGATIVE); CANNABINOID URINE SCREEN NEGATIVE (NEGATIVE)
[2018-05-28 15:37] LABS: *BARBITURATES SCREEN URINE NEGATIVE (NEGATIVE)
[2018-05-28] MEDS ORDERED: PHENYLEPHRINE 40 MG in DEXT 5% WATER 246 ML IV PRN (17:00)
[2018-05-28] MEDS: AZITHROMYCIN 500 MG TABLET PO SCH (17:18)
[2018-05-28] MEDS: ENOXAPARIN 60MG/0.6ML SYR SUBCUT SCH (17:18)
[2018-05-28] MEDS: PHENYLEPHRINE 40 MG in DEXT 5% WATER 246 ML IV PRN (17:28)
[2018-05-28] MEDS: CEFTRIAXONE 2 G PREMIX 50 ML IV SCH (17:30)
[2018-05-28] MEDS ORDERED: IPRATROPIUM/ALBUTEROL 0.5-3(2.5)MG/3ML NEB HHN SCH (18:00)
[2018-05-28] MEDS: IPRATROPIUM BROMIDE (0.02%) 0.5MG/2.5ML NEB HHN SCH (21:11)
[2018-05-28] MEDS: VANCOMYCIN 1 G PREMIX 200 ML IV SCH (21:19)
[2018-05-28 21:31] LABS: BG BASE EXCESS -4.6 mmol/L (-2.0-2.0); BG CARBOXYHEMOGLOBIN 0.8 % (0.5-1.5); BG DEOXYHEMOGLOBIN 0.5 % (0.0-5.0); BG FRACTION INSPIRED OXYGEN 100; BG HCO3 ACT 20.3 mmol/L (22.0-26.0); BG METHEMOGLOBIN 0.3 % (0.0-1.5); BG OXYGEN SATURATION 99.5 % (92.0-98.5); BG OXYHEMOGLOBIN 98.4 % (94.0-97.0); BG PCO2 36.8 mmHg (35.0-45.0); BG PH 7.359 (7.350-7.450); BG PO2 205.1 mmHg (75.0-100.0); BG SAMPLE SITE LEFT RADIAL; BG TIDAL VOLUME(mL) 500 mL; BG TOTAL HEMOGLOBIN 12.1 g/dL (12.0-18.0); BG VENT MODE VENT - A/C; BG VENT RATE 20 set
[2018-05-29] VITALS (90 sets, daily range): BP systolic 71–148; BP diastolic 40–94
[2018-05-29] MEDS: IPRATROPIUM BROMIDE (0.02%) 0.5MG/2.5ML NEB HHN SCH ×6 (01:00→20:45)
[2018-05-29] MEDS: PHENYLEPHRINE 40 MG in DEXT 5% WATER 246 ML IV PRN ×6 (02:34→20:30)
[2018-05-29] MEDS: ENOXAPARIN 60MG/0.6ML SYR SUBCUT SCH (05:00)
[2018-05-29 05:54] LABS: CHLORIDE 109 mEq/L (98-107); HEMATOCRIT. 37.7 % (36.0-48.0); MEAN CORPUSCULAR HEMOGLOBIN 24.5 pg (28.0-32.0); MEAN CORPUSCULAR VOLUME 77.1 fL (81.0-99.0); MEAN PLATELET VOLUME 8.7 fl (7.4-10.4); PLATELET 135 x1000/uL (130-400); RED BLOOD CELL COUNT 4.89 mill/uL (4.2-5.4); RED CELL DISTRIBUTION WIDTH 18.5 % (11.6-14.6)
[2018-05-29 07:52] LABS: PLATELET ESTIMATE NORMAL
[2018-05-29 08:55] LABS: BG DEOXYHEMOGLOBIN 4.6 % (0.0-5.0); BG FRACTION INSPIRED OXYGEN 75; BG HCO3 ACT 23.3 mmol/L (22.0-26.0); BG METHEMOGLOBIN 0.3 % (0.0-1.5); BG OXYGEN SATURATION 95.3 % (92.0-98.5); BG OXYHEMOGLOBIN 94.1 % (94.0-97.0); BG PCO2 46.8 mmHg (35.0-45.0); BG PH 7.315 (7.350-7.450); BG SAMPLE SITE RIGHT RADIAL; BG TIDAL VOLUME(mL) 500 mL; BG TOTAL HEMOGLOBIN 12.7 g/dL (12.0-18.0); BG VENT MODE VENT - A/C; BG VENT RATE 20 set
[2018-05-29] MEDS: AZITHROMYCIN 500 MG TABLET PO SCH (09:05)
[2018-05-29] MEDS: LEVOFLOXACIN 250MG PREMIX 50 ML IV SCH (09:05)
[2018-05-29] MEDS: FAMOTIDINE 20MG/2ML VIAL IV SCH (09:07)
[2018-05-29] MEDS: CARVEDILOL 3.125 MG TABLET PO SCH ×2 (09:30→22:18)
[2018-05-29] MEDS: FUROSEMIDE 40MG/4ML VIAL IVP SCH ×2 (10:18→18:06)
[2018-05-29] MEDS: CEFTRIAXONE 2 G PREMIX 50 ML IV SCH (17:41)
[2018-05-29] MEDS ORDERED: PROPOFOL 10MG/ML 100ML 100 ML IV PRN (18:15)
[2018-05-29] MEDS: PROPOFOL 10MG/ML 100ML 100 ML IV PRN (19:05)
[2018-05-29] MEDS: VANCOMYCIN 1 G PREMIX 200 ML IV SCH (22:16)
[2018-05-30] VITALS (91 sets, daily range): BP systolic 61–136; BP diastolic 30–85
[2018-05-30] MEDS: PHENYLEPHRINE 40 MG in DEXT 5% WATER 246 ML IV PRN ×2 (01:01→04:08)
[2018-05-30] MEDS: IPRATROPIUM BROMIDE (0.02%) 0.5MG/2.5ML NEB HHN SCH ×7 (01:06→23:48)
[2018-05-30] MEDS: PROPOFOL 10MG/ML 100ML 100 ML IV PRN ×2 (04:10→18:20)
[2018-05-30 06:08] LABS: HEMATOCRIT. 35.1 % (36.0-48.0); HEMOGLOBIN. 10.8 g/dL (12.0-16.0); MEAN CORPUSCULAR HEMOGLOBIN 23.7 pg (28.0-32.0); MEAN CORPUSCULAR VOLUME 77.3 fL (81.0-99.0); MEAN PLATELET VOLUME 8.6 fl (7.4-10.4); PLATELET 165 x1000/uL (130-400); RED BLOOD CELL COUNT 4.54 mill/uL (4.2-5.4); RED CELL DISTRIBUTION WIDTH 18.5 % (11.6-14.6)
[2018-05-30 07:25] LABS: PLATELET ESTIMATE NORMAL
[2018-05-30] MEDS: FUROSEMIDE 40MG/4ML VIAL IVP SCH ×2 (07:27→17:58)
[2018-05-30 08:30] LABS: BG BASE EXCESS -1.2 mmol/L (-2.0-2.0); BG CARBOXYHEMOGLOBIN 0.8 % (0.5-1.5); BG DEOXYHEMOGLOBIN 3.7 % (0.0-5.0); BG FRACTION INSPIRED OXYGEN 75; BG METHEMOGLOBIN 0.2 % (0.0-1.5); BG OXYGEN SATURATION 96.3 % (92.0-98.5); BG OXYHEMOGLOBIN 95.3 % (94.0-97.0); BG PCO2 41.9 mmHg (35.0-45.0); BG PH 7.376 (7.350-7.450); BG PO2 88.4 mmHg (75.0-100.0); BG SAMPLE SITE RIGHT BRACHIAL; BG TIDAL VOLUME(mL) 500 mL; BG TOTAL HEMOGLOBIN 12.6 g/dL (12.0-18.0); BG VENT MODE VENT - A/C; BG VENT RATE 20 set
[2018-05-30] MEDS: FAMOTIDINE 20MG/2ML VIAL IV SCH (08:35)
[2018-05-30] MEDS: CARVEDILOL 3.125 MG TABLET PO SCH ×3 (08:35→21:37)
[2018-05-30] MEDS: AZITHROMYCIN 500 MG TABLET PO SCH (08:36)
[2018-05-30] MEDS: ENOXAPARIN 60MG/0.6ML SYR SUBCUT SCH (08:37)
[2018-05-30] MEDS: LEVOFLOXACIN 250MG PREMIX 50 ML IV SCH (09:52)
[2018-05-30] MEDS: PHENYLEPHRINE 80 MG in DEXT 5% WATER 492 ML IV PRN (09:53)
[2018-05-30] MEDS: VANCOMYCIN 1250MG in DEXTROSE 5% WATER 250ML IV SCH (10:00)
[2018-05-30] MEDS: CEFTRIAXONE 2 G in DEXTROSE 5% WATER 50 ML IV SCH (17:25)
[2018-05-30 23:45] LABS: INR 1.3; PROTHROMBIN TIME 13.4 sec (9.1-11.1)
[2018-05-30 23:52] LABS: T4 FREE 1.23 ng/dL (0.76-1.46)
[2018-05-31] VITALS (93 sets, daily range): BP systolic 76–177; BP diastolic 24–104
[2018-05-31] MEDS: PROPOFOL 10MG/ML 100ML 100 ML IV PRN ×2 (03:09→11:10)
[2018-05-31] MEDS: IPRATROPIUM BROMIDE (0.02%) 0.5MG/2.5ML NEB HHN SCH ×5 (04:03→20:43)
[2018-05-31] MEDS: VANCOMYCIN 1250MG in DEXTROSE 5% WATER 250ML IV SCH ×2 (04:22→22:11)
[2018-05-31 06:07] LABS: HEMATOCRIT. 37.7 % (36.0-48.0); HEMOGLOBIN. 11.9 g/dL (12.0-16.0); MEAN PLATELET VOLUME 9.2 fl (7.4-10.4); PLATELET 178 x1000/uL (130-400); RED BLOOD CELL COUNT 4.97 mill/uL (4.2-5.4); RED CELL DISTRIBUTION WIDTH 18.9 % (11.6-14.6)
[2018-05-31] MEDS: FUROSEMIDE 40MG/4ML VIAL IVP SCH ×2 (06:20→17:14)
[2018-05-31] MEDS: PHENYLEPHRINE 80 MG in DEXT 5% WATER 492 ML IV PRN ×2 (06:29→17:18)
[2018-05-31 07:10] LABS: NUCLEATED RED BLOOD CELLS 1 /100 WBC
[2018-05-31 07:11] LABS: PLATELET ESTIMATE NORMAL
[2018-05-31 08:24] LABS: BG BASE EXCESS 0.7 mmol/L (-2.0-2.0); BG CARBOXYHEMOGLOBIN 0.5 % (0.5-1.5); BG DEOXYHEMOGLOBIN 6.6 % (0.0-5.0); BG FRACTION INSPIRED OXYGEN 55; BG HCO3 ACT 25.1 mmol/L (22.0-26.0); BG METHEMOGLOBIN 0.1 % (0.0-1.5); BG OXYGEN SATURATION 93.4 % (92.0-98.5); BG OXYHEMOGLOBIN 92.8 % (94.0-97.0); BG PCO2 39.4 mmHg (35.0-45.0); BG PH 7.422 (7.350-7.450); BG SAMPLE SITE RIGHT RADIAL; BG TIDAL VOLUME(mL) 500 mL; BG VENT MODE VENT - A/C; BG VENT RATE 20 set
[2018-05-31] MEDS: ENOXAPARIN 60MG/0.6ML SYR SUBCUT SCH (08:48)
[2018-05-31] MEDS: CARVEDILOL 3.125 MG TABLET PO SCH ×2 (08:49→21:00)
[2018-05-31] MEDS: FAMOTIDINE 20MG/2ML VIAL IV SCH (08:49)
[2018-05-31] MEDS: AZITHROMYCIN 500 MG TABLET PO SCH (08:49)
[2018-05-31] MEDS ORDERED: POTASSIUM CHLORIDE 20MEQ TABLET SR PO NR (09:30)
[2018-05-31] MEDS: CEFTRIAXONE 2 G in DEXTROSE 5% WATER 50 ML IV SCH (17:04)
[2018-06-01] VITALS (94 sets, daily range): BP systolic 80–166; BP diastolic 32–125
[2018-06-01] MEDS: IPRATROPIUM BROMIDE (0.02%) 0.5MG/2.5ML NEB HHN SCH ×6 (00:11→20:30)
[2018-06-01] MEDS: PROPOFOL 10MG/ML 100ML 100 ML IV PRN ×3 (01:53→17:37)
[2018-06-01 05:36] LABS: HEMOGLOBIN. 11.4 g/dL (12.0-16.0); MEAN CORPUSCULAR HEMOGLOBIN 23.7 pg (28.0-32.0); MEAN CORPUSCULAR VOLUME 74.7 fL (81.0-99.0); MEAN PLATELET VOLUME 9.1 fl (7.4-10.4); PLATELET 185 x1000/uL (130-400); RED BLOOD CELL COUNT 4.82 mill/uL (4.2-5.4); RED CELL DISTRIBUTION WIDTH 18.4 % (11.6-14.6)
[2018-06-01] MEDS: FUROSEMIDE 40MG/4ML VIAL IVP SCH ×2 (06:33→17:38)
[2018-06-01 07:24] LABS: PLATELET ESTIMATE NORMAL
[2018-06-01 07:27] LABS: BG BASE EXCESS 4.4 mmol/L (-2.0-2.0); BG CARBOXYHEMOGLOBIN 0.7 % (0.5-1.5); BG DEOXYHEMOGLOBIN 3.1 % (0.0-5.0); BG METHEMOGLOBIN 0.3 % (0.0-1.5); BG OXYGEN SATURATION 96.9 % (92.0-98.5); BG OXYHEMOGLOBIN 95.9 % (94.0-97.0); BG PCO2 37.9 mmHg (35.0-45.0); BG PH 7.486 (7.350-7.450); BG PO2 89.4 mmHg (75.0-100.0); BG SAMPLE SITE RIGHT RADIAL; BG TIDAL VOLUME(mL) 500 mL; BG TOTAL HEMOGLOBIN 12.6 g/dL (12.0-18.0); BG VENT MODE VENT - A/C; BG VENT RATE 20 set
[2018-06-01] MEDS: CARVEDILOL 3.125 MG TABLET PO SCH ×2 (08:18→21:00)
[2018-06-01] MEDS: ENOXAPARIN 60MG/0.6ML SYR SUBCUT SCH (08:22)
[2018-06-01] MEDS: FAMOTIDINE 20MG/2ML VIAL IV SCH (08:32)
[2018-06-01] MEDS: AZITHROMYCIN 500 MG TABLET PO SCH (08:32)
[2018-06-01 09:08] LABS: ABSOLUTE EOSINOPHILS 0.1 x10E3/uL (0.0-0.4); ABSOLUTE LYMPHOCYTES 0.9 x10E3/uL (0.7-3.1); ABSOLUTE MONOCYTES 0.5 x10E3/uL (0.1-0.9); ABSOLUTE NEUTROPHILS 16.3 x10E3/uL (1.4-7.0); BASOPHILS 0 % (Not Estab.); HEMATOCRIT 37.5 % (34.0-46.6); HEMATOLOGY COMMENT Note: (.); HEMOGLOBIN 11.3 g/dL (11.1-15.9); IMMATURE GRANULOCYTES 0 % (Not Estab.); LYMPHOCYTES 5 % (Not Estab.); MEAN CORPUSCULAR HEMOGLOBIN 23.8 pg (26.6-33.0); MEAN CORPUSCULAR HGB CONC. 30.1 g/dL (31.5-35.7); MEAN CORPUSCULAR VOLUME 79 fL (79-97); MONOCYTES 3 % (Not Estab.); NEUTROPHILS 91 % (Not Estab.); PLATELETS 216 x10E3/uL (150-379); RBC 4.74 x10E6/uL (3.77-5.28); RED CELL DISTRIBUTION WIDTH 17.6 % (12.3-15.4); WBC 17.9 x10E3/uL (3.4-10.8)
[2018-06-01] MEDS ORDERED: SODIUM BICARBONATE 4% (2.4MEQ) 5ML VIAL IV ONE (10:28)
[2018-06-01 14:18] LABS: % CD 3 POS. LYMPHOCYTES 58.1 % (57.5-86.2); % CD 4 POS. LYMPHOCYTES 27.7 % (30.8-58.5); % CD 8 POS. LYMPH 31.9 % (12.0-35.5); ABSOLUTE CD 3 523 /uL (622-2402); ABSOLUTE CD 4 HELPER 249 /uL (359-1519); ABSOLUTE CD 8 SUPPRESSOR 287 /uL (109-897); CD4/CD8 RATIO 0.87 (0.92-3.72)
[2018-06-01] MEDS: CEFTRIAXONE 2 G in DEXTROSE 5% WATER 50 ML IV SCH (17:37)
[2018-06-01] MEDS ORDERED: VANCOMYCIN 1250MG in DEXTROSE 5% WATER 250ML IV SCH (23:00)
[2018-06-02] VITALS (92 sets, daily range): BP systolic 10–135; BP diastolic 49–85
[2018-06-02] MEDS: PHENYLEPHRINE 80 MG in DEXT 5% WATER 492 ML IV PRN ×2 (00:56→22:25)
[2018-06-02] MEDS: IPRATROPIUM BROMIDE (0.02%) 0.5MG/2.5ML NEB HHN SCH ×6 (01:33→20:20)
[2018-06-02] MEDS: PROPOFOL 10MG/ML 100ML 100 ML IV PRN ×2 (05:10→08:54)
[2018-06-02 06:41] LABS: HEMATOCRIT. 38.8 % (36.0-48.0); HEMOGLOBIN. 12.4 g/dL (12.0-16.0); PLATELET 204 x1000/uL (130-400); RED BLOOD CELL COUNT 5.18 mill/uL (4.2-5.4); RED CELL DISTRIBUTION WIDTH 18.1 % (11.6-14.6)
[2018-06-02 07:40] LABS: NUCLEATED RED BLOOD CELLS 1 /100 WBC
[2018-06-02 07:41] LABS: PLATELET ESTIMATE NORMAL
[2018-06-02] MEDS: FAMOTIDINE 20MG/2ML VIAL IV SCH (08:07)
[2018-06-02] MEDS: AZITHROMYCIN 500 MG TABLET PO SCH (08:07)
[2018-06-02] MEDS: FUROSEMIDE 40MG/4ML VIAL IVP SCH ×2 (08:07→17:54)
[2018-06-02] MEDS: CARVEDILOL 3.125 MG TABLET PO SCH ×2 (09:00→21:00)
[2018-06-02] MEDS ORDERED: POTASSIUM CHLORIDE 20MEQ TABLET SR PO NR (10:45)
[2018-06-02 13:00] LABS: PHOSPHORUS 3.5 mg/dL (2.5-4.9)
[2018-06-02] MEDS: ENOXAPARIN 60MG/0.6ML SYR SUBCUT SCH (13:11)
[2018-06-02] MEDS: CEFTRIAXONE 2 G in DEXTROSE 5% WATER 50 ML IV SCH (17:54)
[2018-06-03] VITALS (88 sets, daily range): BP systolic 80–138; BP diastolic 50–100
[2018-06-03] MEDS: PROPOFOL 10MG/ML 100ML 100 ML IV PRN ×3 (00:32→19:01)
[2018-06-03] MEDS: IPRATROPIUM BROMIDE (0.02%) 0.5MG/2.5ML NEB HHN SCH ×6 (00:34→20:37)
[2018-06-03] MEDS: ACETAMINOPHEN 325MG TABLET PO PRN (00:38)
[2018-06-03 05:42] LABS: BASOPHILS % 0.2 % (0.0-2.0); EOSINOPHILS % 1.1 % (0.0-5.0); HEMATOCRIT. 40.5 % (36.0-48.0); HEMOGLOBIN. 12.9 g/dL (12.0-16.0); LYMPHOCYTES % 9.3 % (20.0-50.0); MEAN CORPUSCULAR VOLUME 75.2 fL (81.0-99.0); MEAN PLATELET VOLUME 8.8 fl (7.4-10.4); MONOCYTES % 6.5 % (2.0-8.0); NEUTROPHILS % 82.9 % (40.0-76.0); PLATELET 233 x1000/uL (130-400); RED BLOOD CELL COUNT 5.39 mill/uL (4.2-5.4); RED CELL DISTRIBUTION WIDTH 18.4 % (11.6-14.6)
[2018-06-03 05:48] LABS: CHLORIDE 104 mEq/L (98-107)
[2018-06-03] MEDS: FUROSEMIDE 40MG/4ML VIAL IVP SCH ×2 (06:36→17:17)
[2018-06-03 08:45] LABS: BG CARBOXYHEMOGLOBIN 1.1 % (0.5-1.5); BG DEOXYHEMOGLOBIN 5.6 % (0.0-5.0); BG FRACTION INSPIRED OXYGEN 40; BG HCO3 ACT 32.2 mmol/L (22.0-26.0); BG METHEMOGLOBIN 0.3 % (0.0-1.5); BG OXYGEN SATURATION 94.3 % (92.0-98.5); BG PCO2 42.8 mmHg (35.0-45.0); BG PH 7.494 (7.350-7.450); BG PO2 72.8 mmHg (75.0-100.0); BG SAMPLE SITE RIGHT RADIAL; BG TIDAL VOLUME(mL) 500 mL; BG TOTAL HEMOGLOBIN 14.2 g/dL (12.0-18.0); BG VENT MODE VENT - A/C; BG VENT RATE 16 set
[2018-06-03] MEDS: CARVEDILOL 3.125 MG TABLET PO SCH ×2 (09:00→21:00)
[2018-06-03] MEDS: AZITHROMYCIN 500 MG TABLET PO SCH (09:01)
[2018-06-03] MEDS: FAMOTIDINE 20MG/2ML VIAL IV SCH (09:01)
[2018-06-03] MEDS: ENOXAPARIN 60MG/0.6ML SYR SUBCUT SCH (09:02)
[2018-06-03] MEDS ORDERED: KCL 20MEQ/100ML PREMIX 100 ML IV NR (11:30)
[2018-06-03] MEDS: MIDODRINE HCL 5MG TABLET PO SCH ×2 (12:45→17:18)
[2018-06-03] MEDS: CEFTRIAXONE 2 G in DEXTROSE 5% WATER 50 ML IV SCH (17:17)
[2018-06-04] VITALS (80 sets, daily range): BP systolic 76–123; BP diastolic 48–76
[2018-06-04] MEDS: IPRATROPIUM BROMIDE (0.02%) 0.5MG/2.5ML NEB HHN SCH ×6 (00:20→20:03)
[2018-06-04] MEDS: PHENYLEPHRINE 80 MG in DEXT 5% WATER 492 ML IV PRN (01:49)
[2018-06-04 04:53] LABS: BASOPHILS % 1.1 % (0.0-2.0); EOSINOPHILS % 1.1 % (0.0-5.0); HEMATOCRIT. 41.9 % (36.0-48.0); HEMOGLOBIN. 12.9 g/dL (12.0-16.0); LYMPHOCYTES % 8.2 % (20.0-50.0); MEAN CORPUSCULAR HEMOGLOBIN 23.5 pg (28.0-32.0); MEAN CORPUSCULAR VOLUME 76.1 fL (81.0-99.0); MEAN PLATELET VOLUME 8.6 fl (7.4-10.4); MONOCYTES % 8.8 % (2.0-8.0); NEUTROPHILS % 80.8 % (40.0-76.0); PLATELET 256 x1000/uL (130-400); RED CELL DISTRIBUTION WIDTH 18.2 % (11.6-14.6)
[2018-06-04] MEDS: PROPOFOL 10MG/ML 100ML 100 ML IV PRN ×3 (05:03→20:36)
[2018-06-04 05:04] LABS: CHLORIDE 103 mEq/L (98-107)
[2018-06-04] MEDS: FUROSEMIDE 40MG/4ML VIAL IVP SCH ×2 (06:30→17:57)
[2018-06-04] MEDS: FAMOTIDINE 20MG/2ML VIAL IV SCH (08:54)
[2018-06-04] MEDS: ENOXAPARIN 60MG/0.6ML SYR SUBCUT SCH (08:54)
[2018-06-04] MEDS: MIDODRINE HCL 5MG TABLET PO SCH ×3 (08:55→17:57)
[2018-06-04] MEDS: CARVEDILOL 3.125 MG TABLET PO SCH ×2 (08:55→20:37)
[2018-06-04 10:01] LABS: BG BASE EXCESS 12.2 mmol/L (-2.0-2.0); BG CARBOXYHEMOGLOBIN 0.8 % (0.5-1.5); BG DEOXYHEMOGLOBIN 4.1 % (0.0-5.0); BG FRACTION INSPIRED OXYGEN 40; BG HCO3 ACT 37.2 mmol/L (22.0-26.0); BG METHEMOGLOBIN 0.3 % (0.0-1.5); BG OXYGEN SATURATION 95.9 % (92.0-98.5); BG OXYHEMOGLOBIN 94.8 % (94.0-97.0); BG PCO2 48.7 mmHg (35.0-45.0); BG PH 7.501 (7.350-7.450); BG PO2 79.7 mmHg (75.0-100.0); BG PRESSURE SUPPORT 16; BG SAMPLE SITE RIGHT RADIAL; BG TIDAL VOLUME(mL) 500 mL; BG VENT MODE VENT - SIMV; BG VENT RATE 10 set
[2018-06-04] MEDS: CEFTRIAXONE 2 G in DEXTROSE 5% WATER 50 ML IV SCH (17:57)
[2018-06-05] VITALS (87 sets, daily range): BP systolic 85–131; BP diastolic 51–94
[2018-06-05] MEDS: IPRATROPIUM BROMIDE (0.02%) 0.5MG/2.5ML NEB HHN SCH ×5 (01:01→20:27)
[2018-06-05] MEDS: PROPOFOL 10MG/ML 100ML 100 ML IV PRN ×4 (03:28→20:17)
[2018-06-05] MEDS: PHENYLEPHRINE 80 MG in DEXT 5% WATER 492 ML IV PRN (04:07)
[2018-06-05 05:53] LABS: BASOPHILS % 0.9 % (0.0-2.0); EOSINOPHILS % 1.4 % (0.0-5.0); HEMATOCRIT. 38.8 % (36.0-48.0); HEMOGLOBIN. 12.2 g/dL (12.0-16.0); MEAN CORPUSCULAR HEMOGLOBIN 23.9 pg (28.0-32.0); MEAN CORPUSCULAR VOLUME 75.7 fL (81.0-99.0); MEAN PLATELET VOLUME 8.5 fl (7.4-10.4); MONOCYTES % 8.5 % (2.0-8.0); NEUTROPHILS % 80.2 % (40.0-76.0); PLATELET 228 x1000/uL (130-400); RED BLOOD CELL COUNT 5.13 mill/uL (4.2-5.4); RED CELL DISTRIBUTION WIDTH 18.5 % (11.6-14.6)
[2018-06-05 06:08] LABS: CHLORIDE 103 mEq/L (98-107)
[2018-06-05 07:36] LABS: BG BASE EXCESS 13.9 mmol/L (-2.0-2.0); BG CARBOXYHEMOGLOBIN 1.4 % (0.5-1.5); BG DEOXYHEMOGLOBIN 5.4 % (0.0-5.0); BG HCO3 ACT 40.6 mmol/L (22.0-26.0); BG METHEMOGLOBIN 0.3 % (0.0-1.5); BG OXYGEN SATURATION 94.5 % (92.0-98.5); BG OXYHEMOGLOBIN 92.9 % (94.0-97.0); BG PCO2 59.6 mmHg (35.0-45.0); BG PH 7.451 (7.350-7.450); BG PO2 71.7 mmHg (75.0-100.0); BG SAMPLE SITE RIGHT BRACHIAL; BG TIDAL VOLUME(mL) 500 mL; BG TOTAL HEMOGLOBIN 13.4 g/dL (12.0-18.0); BG VENT MODE VENT - SIMV; BG VENT RATE 8 set
[2018-06-05] MEDS: CARVEDILOL 3.125 MG TABLET PO SCH ×3 (09:00→21:00)
[2018-06-05] MEDS: FUROSEMIDE 40MG/4ML VIAL IVP SCH ×2 (09:40→18:21)
[2018-06-05] MEDS: FAMOTIDINE 20MG/2ML VIAL IV SCH (09:40)
[2018-06-05] MEDS: ENOXAPARIN 60MG/0.6ML SYR SUBCUT SCH (09:41)
[2018-06-05] MEDS: MIDODRINE HCL 5MG TABLET PO SCH ×3 (09:41→18:21)
[2018-06-05 11:33] LABS: TOTAL IRON BINDING CAPACITY 264 ug/dL (250-450)
[2018-06-05 11:55] LABS: FOLIC ACID (FOLATE) SERUM 17.7 ng/mL (>5.38)
[2018-06-05] MEDS: CEFTRIAXONE 2 G in DEXTROSE 5% WATER 50 ML IV SCH (18:21)
[2018-06-06] VITALS (92 sets, daily range): BP systolic 89–129; BP diastolic 42–91
[2018-06-06] MEDS: IPRATROPIUM BROMIDE (0.02%) 0.5MG/2.5ML NEB HHN SCH ×5 (01:57→20:04)
[2018-06-06] MEDS: PROPOFOL 10MG/ML 100ML 100 ML IV PRN ×2 (04:11→21:19)
[2018-06-06 05:40] LABS: BASOPHILS % 1.3 % (0.0-2.0); EOSINOPHILS % 1.6 % (0.0-5.0); HEMATOCRIT. 41.2 % (36.0-48.0); HEMOGLOBIN. 12.7 g/dL (12.0-16.0); LYMPHOCYTES % 11.3 % (20.0-50.0); MEAN CORPUSCULAR HEMOGLOBIN 23.8 pg (28.0-32.0); MEAN CORPUSCULAR VOLUME 77.1 fL (81.0-99.0); MEAN PLATELET VOLUME 8.9 fl (7.4-10.4); MONOCYTES % 9.8 % (2.0-8.0); PLATELET 234 x1000/uL (130-400); RED BLOOD CELL COUNT 5.34 mill/uL (4.2-5.4); RED CELL DISTRIBUTION WIDTH 18.5 % (11.6-14.6)
[2018-06-06] MEDS: FUROSEMIDE 40MG/4ML VIAL IVP SCH ×2 (07:04→17:50)
[2018-06-06] MEDS: PHENYLEPHRINE 80 MG in DEXT 5% WATER 492 ML IV PRN (07:19)
[2018-06-06 08:03] LABS: BG BASE EXCESS 16.1 mmol/L (-2.0-2.0); BG CARBOXYHEMOGLOBIN 1.1 % (0.5-1.5); BG DEOXYHEMOGLOBIN 2.6 % (0.0-5.0); BG HCO3 ACT 43.5 mmol/L (22.0-26.0); BG METHEMOGLOBIN 0.1 % (0.0-1.5); BG OXYGEN SATURATION 97.4 % (92.0-98.5); BG OXYHEMOGLOBIN 96.2 % (94.0-97.0); BG PCO2 65.8 mmHg (35.0-45.0); BG PH 7.438 (7.350-7.450); BG PO2 96.2 mmHg (75.0-100.0); BG SAMPLE SITE RIGHT BRACHIAL; BG TIDAL VOLUME(mL) 500 mL; BG TOTAL HEMOGLOBIN 12.9 g/dL (12.0-18.0); BG VENT MODE VENT - SIMV; BG VENT RATE 8 set
[2018-06-06] MEDS: CARVEDILOL 3.125 MG TABLET PO SCH ×2 (09:00→21:00)
[2018-06-06] MEDS: MIDODRINE HCL 5MG TABLET PO SCH ×3 (10:18→17:50)
[2018-06-06] MEDS: ENOXAPARIN 60MG/0.6ML SYR SUBCUT SCH (10:19)
[2018-06-06] MEDS: FAMOTIDINE 20MG/2ML VIAL IV SCH (10:22)
[2018-06-06] MEDS: CEFTRIAXONE 2 G in DEXTROSE 5% WATER 50 ML IV SCH (17:49)
[2018-06-07] VITALS (88 sets, daily range): BP systolic 89–123; BP diastolic 54–95
[2018-06-07] MEDS: IPRATROPIUM BROMIDE (0.02%) 0.5MG/2.5ML NEB HHN SCH ×6 (00:20→20:22)
[2018-06-07] MEDS: PROPOFOL 10MG/ML 100ML 100 ML IV PRN (04:49)
[2018-06-07 05:33] LABS: BASOPHILS % 0.7 % (0.0-2.0); EOSINOPHILS % 0.9 % (0.0-5.0); HEMATOCRIT. 39.2 % (36.0-48.0); HEMOGLOBIN. 12.1 g/dL (12.0-16.0); LYMPHOCYTES % 10.2 % (20.0-50.0); MEAN CORPUSCULAR HEMOGLOBIN 23.5 pg (28.0-32.0); MEAN CORPUSCULAR VOLUME 76.3 fL (81.0-99.0); MEAN PLATELET VOLUME 8.9 fl (7.4-10.4); MONOCYTES % 9.4 % (2.0-8.0); NEUTROPHILS % 78.8 % (40.0-76.0); PLATELET 196 x1000/uL (130-400); RED BLOOD CELL COUNT 5.14 mill/uL (4.2-5.4); RED CELL DISTRIBUTION WIDTH 18.2 % (11.6-14.6)
[2018-06-07 05:43] LABS: CHLORIDE 101 mEq/L (98-107)
[2018-06-07] MEDS: PHENYLEPHRINE 80 MG in DEXT 5% WATER 492 ML IV PRN (06:28)
[2018-06-07] MEDS: FUROSEMIDE 40MG/4ML VIAL IVP SCH ×2 (06:31→17:51)
[2018-06-07] MEDS: FAMOTIDINE 20MG/2ML VIAL IV SCH (08:53)
[2018-06-07] MEDS: CARVEDILOL 3.125 MG TABLET PO SCH (08:54)
[2018-06-07] MEDS: MIDODRINE HCL 5MG TABLET PO SCH ×3 (08:54→17:51)
[2018-06-07] MEDS: ENOXAPARIN 60MG/0.6ML SYR SUBCUT SCH (08:54)
[2018-06-07] MEDS ORDERED: FENTANYL CITRATE/PF 500 MCG in SODIUM CHLORIDE 0.9% 40 ML IV PRN (10:00)
[2018-06-07] MEDS: FENTANYL CITRATE/PF 50MCG/ML 2ML VIAL IV SCH ×4 (12:40→23:44)
[2018-06-07] MEDS: CEFTRIAXONE 2 G in DEXTROSE 5% WATER 50 ML IV SCH (17:51)
[2018-06-07] MEDS ORDERED: DILTIAZEM HCL 30MG TABLET PO SCH (18:00)
[2018-06-07 20:01] LABS: T4 FREE 0.9 ng/dL (0.76-1.46)
[2018-06-07] MEDS: DILTIAZEM HCL 125 MG in DEXT 5% WATER 100 ML IV PRN (21:50)
[2018-06-08] VITALS (76 sets, daily range): BP systolic 88–123; BP diastolic 45–92
[2018-06-08] MEDS: IPRATROPIUM BROMIDE (0.02%) 0.5MG/2.5ML NEB HHN SCH ×7 (00:37→23:59)
[2018-06-08] MEDS: FENTANYL CITRATE/PF 50MCG/ML 2ML VIAL IV SCH ×6 (03:49→20:55)
[2018-06-08 05:40] LABS: BASOPHILS % 0.8 % (0.0-2.0); EOSINOPHILS % 0.8 % (0.0-5.0); HEMATOCRIT. 39.3 % (36.0-48.0); LYMPHOCYTES % 11.1 % (20.0-50.0); MEAN CORPUSCULAR HEMOGLOBIN 23.4 pg (28.0-32.0); MEAN CORPUSCULAR VOLUME 76.2 fL (81.0-99.0); MONOCYTES % 10.5 % (2.0-8.0); NEUTROPHILS % 76.8 % (40.0-76.0); PLATELET 223 x1000/uL (130-400); RED BLOOD CELL COUNT 5.15 mill/uL (4.2-5.4); RED CELL DISTRIBUTION WIDTH 18.4 % (11.6-14.6)
[2018-06-08 05:46] LABS: CHLORIDE 102 mEq/L (98-107)
[2018-06-08] MEDS: FUROSEMIDE 40MG/4ML VIAL IVP SCH ×2 (06:20→16:30)
[2018-06-08] MEDS: MIDODRINE HCL 5MG TABLET PO SCH ×3 (08:22→16:30)
[2018-06-08] MEDS: ENOXAPARIN 60MG/0.6ML SYR SUBCUT SCH (08:22)
[2018-06-08] MEDS: FAMOTIDINE 20MG/2ML VIAL IV SCH (08:33)
[2018-06-08 09:50] LABS: BG BASE EXCESS 12.7 mmol/L (-2.0-2.0); BG CARBOXYHEMOGLOBIN 1.3 % (0.5-1.5); BG FRACTION INSPIRED OXYGEN 40; BG METHEMOGLOBIN 0.3 % (0.0-1.5); BG OXYHEMOGLOBIN 96.4 % (94.0-97.0); BG PCO2 46.2 mmHg (35.0-45.0); BG PH 7.522 (7.350-7.450); BG PO2 100.9 mmHg (75.0-100.0); BG PRESSURE SUPPORT 12; BG SAMPLE SITE RIGHT BRACHIAL; BG TIDAL VOLUME(mL) 500 mL; BG TOTAL HEMOGLOBIN 12.7 g/dL (12.0-18.0); BG VENT MODE VENT - SIMV; BG VENT RATE 8 set
[2018-06-08] MEDS: PHENYLEPHRINE 80 MG in DEXT 5% WATER 492 ML IV PRN (10:45)
[2018-06-08] MEDS ORDERED: ROCURONIUM BROMIDE 10MG/ML VIAL 5ML IV ONE (11:20)
[2018-06-08] MEDS ORDERED: CLINDAMYCIN 600 MG in DEXTROSE 5% WATER 50 ML IV SCH (11:30)
[2018-06-08] MEDS: CEFTRIAXONE 2 G in DEXTROSE 5% WATER 50 ML IV SCH (17:40)
[2018-06-08] MEDS: DILTIAZEM HCL 125 MG in DEXT 5% WATER 100 ML IV PRN (19:14)
[2018-06-09] VITALS (78 sets, daily range): BP systolic 78–126; BP diastolic 42–86
[2018-06-09] MEDS: FENTANYL CITRATE/PF 50MCG/ML 2ML VIAL IV SCH ×6 (00:19→21:10)
[2018-06-09] MEDS: IPRATROPIUM BROMIDE (0.02%) 0.5MG/2.5ML NEB HHN SCH ×5 (05:41→20:06)
[2018-06-09 06:19] LABS: BASOPHILS % 0.4 % (0.0-2.0); EOSINOPHILS % 0.4 % (0.0-5.0); HEMATOCRIT. 37.9 % (36.0-48.0); HEMOGLOBIN. 11.8 g/dL (12.0-16.0); LYMPHOCYTES % 10.7 % (20.0-50.0); MEAN CORPUSCULAR HEMOGLOBIN 23.8 pg (28.0-32.0); MEAN CORPUSCULAR VOLUME 76.7 fL (81.0-99.0); MEAN PLATELET VOLUME 9.5 fl (7.4-10.4); MONOCYTES % 8.9 % (2.0-8.0); NEUTROPHILS % 79.6 % (40.0-76.0); PLATELET 246 x1000/uL (130-400); RED BLOOD CELL COUNT 4.95 mill/uL (4.2-5.4); RED CELL DISTRIBUTION WIDTH 18.4 % (11.6-14.6)
[2018-06-09 06:22] LABS: CHLORIDE 104 mEq/L (98-107)
[2018-06-09] MEDS: FUROSEMIDE 40MG/4ML VIAL IVP SCH ×2 (08:29→17:06)
[2018-06-09] MEDS: FAMOTIDINE 20MG/2ML VIAL IV SCH (08:30)
[2018-06-09] MEDS: ENOXAPARIN 60MG/0.6ML SYR SUBCUT SCH ×2 (08:30→21:10)
[2018-06-09] MEDS: MIDODRINE HCL 5MG TABLET PO SCH ×3 (08:30→21:11)
[2018-06-09] MEDS ORDERED: POTASSIUM CHLORIDE 20MEQ TABLET SR PO SCH (09:30)
[2018-06-09] MEDS: POTASSIUM CHLORIDE 20MEQ TABLET SR PO SCH (17:05)
[2018-06-09] MEDS: CEFTRIAXONE 2 G in DEXTROSE 5% WATER 50 ML IV SCH (17:06)
[2018-06-09] MEDS: DILTIAZEM HCL 30MG TABLET PO SCH (17:07)
[2018-06-09] MEDS: DILTIAZEM HCL 125 MG in DEXT 5% WATER 100 ML IV PRN (17:11)
[2018-06-10] VITALS (13 sets, daily range): BP systolic 90–113; BP diastolic 58–83
[2018-06-10] MEDS: DILTIAZEM HCL 30MG TABLET PO SCH ×5 (00:50→23:56)
[2018-06-10] MEDS: IPRATROPIUM BROMIDE (0.02%) 0.5MG/2.5ML NEB HHN SCH ×6 (01:47→21:16)
[2018-06-10] MEDS: FUROSEMIDE 40MG/4ML VIAL IVP SCH ×2 (05:35→16:49)
[2018-06-10] MEDS: MIDODRINE HCL 5MG TABLET PO SCH ×3 (05:35→22:12)
[2018-06-10 05:58] LABS: BASOPHILS % 0.7 % (0.0-2.0); EOSINOPHILS % 1.5 % (0.0-5.0); HEMATOCRIT. 35.9 % (36.0-48.0); MEAN CORPUSCULAR HEMOGLOBIN 23.5 pg (28.0-32.0); MEAN CORPUSCULAR VOLUME 76.4 fL (81.0-99.0); MEAN PLATELET VOLUME 9.7 fl (7.4-10.4); NEUTROPHILS % 74.8 % (40.0-76.0); PLATELET 230 x1000/uL (130-400); RED CELL DISTRIBUTION WIDTH 18.6 % (11.6-14.6)
[2018-06-10 06:27] LABS: CHLORIDE 106 mEq/L (98-107)
[2018-06-10] MEDS: LACTULOSE 20G/30ML UDC PO SCH (08:38)
[2018-06-10] MEDS: FAMOTIDINE 20MG/2ML VIAL IV SCH (08:38)
[2018-06-10] MEDS: POTASSIUM CHLORIDE 20MEQ TABLET SR PO SCH ×2 (08:38→16:49)
[2018-06-10] MEDS: ENOXAPARIN 60MG/0.6ML SYR SUBCUT SCH ×2 (08:39→20:43)
[2018-06-10] MEDS ORDERED: KCL 20MEQ/100ML PREMIX 100 ML IV NR (17:00)
[2018-06-10] MEDS: CEFTRIAXONE 2 G in DEXTROSE 5% WATER 50 ML IV SCH (17:38)
[2018-06-10] MEDS: ALPRAZOLAM 0.25 MG TABLET PO PRN (18:42)
[2018-06-10] MEDS: ONDANSETRON HCL 4MG/2ML INJ IV PRN (22:12)
[2018-06-11] VITALS (20 sets, daily range): BP systolic 87–117; BP diastolic 49–80
[2018-06-11] MEDS: IPRATROPIUM BROMIDE (0.02%) 0.5MG/2.5ML NEB HHN SCH ×5 (04:44→20:41)
[2018-06-11] MEDS: DILTIAZEM HCL 30MG TABLET PO SCH ×4 (05:36→23:33)
[2018-06-11] MEDS: FUROSEMIDE 40MG/4ML VIAL IVP SCH ×2 (05:36→17:15)
[2018-06-11] MEDS: ALPRAZOLAM 0.25 MG TABLET PO PRN ×2 (05:36→17:15)
[2018-06-11] MEDS: MIDODRINE HCL 5MG TABLET PO SCH ×3 (07:15→22:00)
[2018-06-11 07:54] LABS: BASOPHILS % 0.7 % (0.0-2.0); EOSINOPHILS % 0.9 % (0.0-5.0); HEMATOCRIT. 35.1 % (36.0-48.0); HEMOGLOBIN. 10.7 g/dL (12.0-16.0); LYMPHOCYTES % 12.5 % (20.0-50.0); MEAN CORPUSCULAR HEMOGLOBIN 23.5 pg (28.0-32.0); MEAN CORPUSCULAR VOLUME 77.2 fL (81.0-99.0); MEAN PLATELET VOLUME 9.5 fl (7.4-10.4); MONOCYTES % 8.7 % (2.0-8.0); NEUTROPHILS % 77.2 % (40.0-76.0); PLATELET 300 x1000/uL (130-400); RED BLOOD CELL COUNT 4.55 mill/uL (4.2-5.4); RED CELL DISTRIBUTION WIDTH 18.9 % (11.6-14.6)
[2018-06-11 08:39] LABS: CHLORIDE 107 mEq/L (98-107)
[2018-06-11] MEDS: POTASSIUM CHLORIDE 20MEQ/PACKET PO SCH ×2 (09:00→17:15)
[2018-06-11] MEDS: LACTULOSE 20G/30ML UDC PO SCH (09:15)
[2018-06-11] MEDS: FAMOTIDINE 20MG/2ML VIAL IV SCH (09:16)
[2018-06-11] MEDS: ENOXAPARIN 60MG/0.6ML SYR SUBCUT SCH ×2 (09:16→21:00)
[2018-06-11] MEDS ORDERED: DILTIAZEM HCL 5MG/ML 5ML VIAL IV SCH (22:21)
[2018-06-11] MEDS ORDERED: DILTIAZEM HCL 125 MG in DEXT 5% WATER 100 ML IV PRN (23:00)
[2018-06-12] VITALS (111 sets, daily range): BP systolic 66–145; BP diastolic 36–102
[2018-06-12] MEDS: IPRATROPIUM BROMIDE (0.02%) 0.5MG/2.5ML NEB HHN SCH ×6 (00:43→20:34)
[2018-06-12] MEDS: ACETAMINOPHEN 325MG TABLET PO PRN (00:44)
[2018-06-12] MEDS ORDERED: DIGOXIN 500MCG/2ML AMP IV SCH (01:29)
[2018-06-12 05:14] LABS: HEMATOCRIT. 34.9 % (36.0-48.0); HEMOGLOBIN. 10.6 g/dL (12.0-16.0); MEAN CORPUSCULAR HEMOGLOBIN 23.1 pg (28.0-32.0); MEAN CORPUSCULAR VOLUME 76.3 fL (81.0-99.0); MEAN PLATELET VOLUME 10.1 fl (7.4-10.4); PLATELET 187 x1000/uL (130-400); RED BLOOD CELL COUNT 4.58 mill/uL (4.2-5.4); RED CELL DISTRIBUTION WIDTH 18.9 % (11.6-14.6)
[2018-06-12] MEDS ORDERED: PHENYLEPHRINE 40 MG in DEXT 5% WATER 246 ML IV PRN (05:30)
[2018-06-12 06:20] LABS: PLATELET ESTIMATE NORMAL
[2018-06-12] MEDS: FUROSEMIDE 40MG/4ML VIAL IVP SCH (06:43)
[2018-06-12] MEDS: DILTIAZEM HCL 30MG TABLET PO SCH ×3 (06:44→18:00)
[2018-06-12] MEDS: MIDODRINE HCL 5MG TABLET PO SCH ×3 (06:45→21:16)
[2018-06-12] MEDS: LACTULOSE 20G/30ML UDC PO SCH (08:53)
[2018-06-12] MEDS: ENOXAPARIN 60MG/0.6ML SYR SUBCUT SCH (08:54)
[2018-06-12] MEDS: POTASSIUM CHLORIDE 20MEQ/PACKET PO SCH (08:54)
[2018-06-12] MEDS: FAMOTIDINE 20MG/2ML VIAL IV SCH (09:00)
[2018-06-12] MEDS: ALPRAZOLAM 0.25 MG TABLET PO PRN (11:18)
[2018-06-12] MEDS ORDERED: VANCOMYCIN 1250MG in DEXTROSE 5% WATER 250ML IV NR (13:00)
[2018-06-12] MEDS: MEROPENEM 1,000 MG in SODIUM CHLORIDE 0.9% 100 ML IV SCH (13:09)
[2018-06-12 16:19] LABS: CLARITY URINE CLOUDY (CLEAR); COLOR URINE DARK YELLOW (YELLOW); KETONES URINE TRACE (NEGATIVE); LEUKOCYTE ESTERASE URINE 1+ (NEGATIVE); NITRITE URINE NEGATIVE (NEGATIVE); OCCULT BLOOD URINE 2+ (NEGATIVE); PROTEIN URINE 2+ (NEGATIVE); SPECIFIC GRAVITY URINE 1.022 (1.005-1.030); UROBILINOGEN URINE 0.2 E.U./dL (0.2-1.0)
[2018-06-12 16:51] LABS: INR 1.2
[2018-06-13] VITALS (61 sets, daily range): BP systolic 97–147; BP diastolic 42–117
[2018-06-13] MEDS: DILTIAZEM HCL 30MG TABLET PO SCH ×4 (00:42→18:08)
[2018-06-13] MEDS: IPRATROPIUM BROMIDE (0.02%) 0.5MG/2.5ML NEB HHN SCH ×5 (02:11→20:32)
[2018-06-13 05:03] LABS: BASOPHILS % 0.3 % (0.0-2.0); EOSINOPHILS % 0.8 % (0.0-5.0); HEMATOCRIT. 35.5 % (36.0-48.0); HEMOGLOBIN. 10.9 g/dL (12.0-16.0); LYMPHOCYTES % 9.4 % (20.0-50.0); MEAN CORPUSCULAR HEMOGLOBIN 23.2 pg (28.0-32.0); MEAN CORPUSCULAR VOLUME 75.8 fL (81.0-99.0); MEAN PLATELET VOLUME 10.1 fl (7.4-10.4); MONOCYTES % 6.4 % (2.0-8.0); NEUTROPHILS % 83.1 % (40.0-76.0); PLATELET 254 x1000/uL (130-400); RED BLOOD CELL COUNT 4.68 mill/uL (4.2-5.4); RED CELL DISTRIBUTION WIDTH 19.2 % (11.6-14.6)
[2018-06-13] MEDS: MEROPENEM 1,000 MG in SODIUM CHLORIDE 0.9% 100 ML IV SCH ×2 (05:47→14:10)
[2018-06-13] MEDS: MIDODRINE HCL 5MG TABLET PO SCH ×3 (05:48→21:38)
[2018-06-13] MEDS ORDERED: VANCOMYCIN 500 MG PREMIX 100 ML IV SCH (06:00)
[2018-06-13] MEDS: FAMOTIDINE 20MG/2ML VIAL IV SCH (08:51)
[2018-06-13] MEDS: ENOXAPARIN 60MG/0.6ML SYR SUBCUT SCH (08:51)
[2018-06-13] MEDS: LACTULOSE 20G/30ML UDC PO SCH (08:51)
[2018-06-13] MEDS ORDERED: SODIUM CHLORIDE 0.9% 10ML VIAL ONE (14:25)
[2018-06-13] MEDS ORDERED: FENTANYL CITRATE/PF 50MCG/ML 2ML VIAL ONE (16:25)
[2018-06-13] MEDS ORDERED: MIDAZOLAM HCL 5 MG/5 ML VIAL ONE (16:25)
[2018-06-13] MEDS ORDERED: MIDAZOLAM HCL 5 MG/5 ML VIAL IV PRN (16:55)
[2018-06-13] MEDS ORDERED: FENTANYL CITRATE/PF 50MCG/ML 2ML VIAL IV PRN (16:57)
[2018-06-14] VITALS (15 sets, daily range): BP systolic 98–123; BP diastolic 60–79
[2018-06-14] MEDS: DILTIAZEM HCL 30MG TABLET PO SCH ×4 (00:01→17:59)
[2018-06-14] MEDS: IPRATROPIUM BROMIDE (0.02%) 0.5MG/2.5ML NEB HHN SCH ×6 (00:35→20:25)
[2018-06-14] MEDS: MEROPENEM 1,000 MG in SODIUM CHLORIDE 0.9% 100 ML IV SCH ×2 (02:49→13:30)
[2018-06-14] MEDS: MIDODRINE HCL 5MG TABLET PO SCH (05:38)
[2018-06-14 06:35] LABS: BASOPHILS % 0.5 % (0.0-2.0); EOSINOPHILS % 1.3 % (0.0-5.0); LYMPHOCYTES % 15.1 % (20.0-50.0); MEAN CORPUSCULAR HEMOGLOBIN 23.2 pg (28.0-32.0); MEAN CORPUSCULAR VOLUME 76.2 fL (81.0-99.0); MEAN PLATELET VOLUME 10.1 fl (7.4-10.4); MONOCYTES % 9.5 % (2.0-8.0); NEUTROPHILS % 73.6 % (40.0-76.0); PLATELET 263 x1000/uL (130-400); RED BLOOD CELL COUNT 4.72 mill/uL (4.2-5.4)
[2018-06-14] MEDS: ENOXAPARIN 60MG/0.6ML SYR SUBCUT SCH ×2 (08:58→13:30)
[2018-06-14] MEDS: FAMOTIDINE 20MG/2ML VIAL IV SCH (08:58)
[2018-06-14] MEDS: LACTULOSE 20G/30ML UDC PO SCH (08:58)
[2018-06-14] MEDS ORDERED: POTASSIUM CHLORIDE 20MEQ TABLET SR PO SCH (13:15)
[2018-06-14] MEDS ORDERED: VANCOMYCIN 750 MG PREMIX 150 ML IV SCH ×2 (18:00)
[2018-06-15] VITALS (13 sets, daily range): BP systolic 107–142; BP diastolic 62–89
[2018-06-15] MEDS: IPRATROPIUM BROMIDE (0.02%) 0.5MG/2.5ML NEB HHN SCH ×6 (00:21→20:01)
[2018-06-15] MEDS: DILTIAZEM HCL 30MG TABLET PO SCH ×4 (00:33→18:04)
[2018-06-15] MEDS: MEROPENEM 1,000 MG in SODIUM CHLORIDE 0.9% 100 ML IV SCH (02:26)
[2018-06-15 06:33] LABS: BASOPHILS % 0.5 % (0.0-2.0); EOSINOPHILS % 1.8 % (0.0-5.0); HEMOGLOBIN. 11.3 g/dL (12.0-16.0); LYMPHOCYTES % 16.8 % (20.0-50.0); MEAN CORPUSCULAR HEMOGLOBIN 23.9 pg (28.0-32.0); MEAN CORPUSCULAR VOLUME 75.9 fL (81.0-99.0); MEAN PLATELET VOLUME 10.5 fl (7.4-10.4); MONOCYTES % 10.4 % (2.0-8.0); NEUTROPHILS % 70.5 % (40.0-76.0); PLATELET 293 x1000/uL (130-400); RED BLOOD CELL COUNT 4.74 mill/uL (4.2-5.4); RED CELL DISTRIBUTION WIDTH 19.3 % (11.6-14.6)
[2018-06-15] MEDS: LACTULOSE 20G/30ML UDC PO SCH (08:19)
[2018-06-15] MEDS: ENOXAPARIN 60MG/0.6ML SYR SUBCUT SCH (08:19)
[2018-06-15] MEDS: FAMOTIDINE 20MG/2ML VIAL IV SCH (08:20)
[2018-06-15] MEDS ORDERED: CEFTRIAXONE 2 G PREMIX 50 ML IV SCH (09:45)
[2018-06-15] MEDS: CEFTRIAXONE 2 G in DEXTROSE 5% WATER 50 ML IV SCH (13:40)
[2018-06-15] MEDS: ASCORBIC ACID 250 MG TABLET GT SCH (20:58)
[2018-06-15] MEDS: LORAZEPAM 2MG/ML CPJ IV PRN (20:58)
[2018-06-16] VITALS (12 sets, daily range): BP systolic 104–145; BP diastolic 62–112
[2018-06-16] MEDS: IPRATROPIUM BROMIDE (0.02%) 0.5MG/2.5ML NEB HHN SCH ×6 (00:04→16:58)
[2018-06-16] MEDS: DILTIAZEM HCL 30MG TABLET PO SCH ×2 (00:59→05:49)
[2018-06-16] MEDS: LORAZEPAM 2MG/ML CPJ IV PRN ×2 (05:06→13:27)
[2018-06-16 06:37] LABS: BASOPHILS % 0.4 % (0.0-2.0); EOSINOPHILS % 2.1 % (0.0-5.0); HEMOGLOBIN. 11.3 g/dL (12.0-16.0); LYMPHOCYTES % 19.3 % (20.0-50.0); MEAN CORPUSCULAR HEMOGLOBIN 24.1 pg (28.0-32.0); MEAN CORPUSCULAR VOLUME 77.1 fL (81.0-99.0); MEAN PLATELET VOLUME 10.7 fl (7.4-10.4); MONOCYTES % 11.9 % (2.0-8.0); NEUTROPHILS % 66.3 % (40.0-76.0); PLATELET 221 x1000/uL (130-400); RED BLOOD CELL COUNT 4.67 mill/uL (4.2-5.4); RED CELL DISTRIBUTION WIDTH 19.2 % (11.6-14.6)
[2018-06-16 06:47] LABS: CHLORIDE 115 mEq/L (98-107)
[2018-06-16] MEDS: MULTIVITAMINS,THER W-MINERALS TABLET GT SCH (08:37)
[2018-06-16] MEDS: ZINC SULFATE 220 MG ( 50 ) CAPSULE GT SCH (08:37)
[2018-06-16] MEDS: FAMOTIDINE 20MG/2ML VIAL IV SCH (08:37)
[2018-06-16] MEDS: LACTULOSE 20G/30ML UDC PO SCH (08:37)
[2018-06-16] MEDS: ASCORBIC ACID 250 MG TABLET GT SCH ×2 (08:38→20:29)
[2018-06-16] MEDS: ENOXAPARIN 60MG/0.6ML SYR SUBCUT SCH (08:39)
[2018-06-16] MEDS: CEFTRIAXONE 2 G in DEXTROSE 5% WATER 50 ML IV SCH (08:46)
[2018-06-16] MEDS ORDERED: POTASSIUM CHLORIDE 20MEQ/PACKET PO NR (11:42)
[2018-06-16] MEDS: DILTIAZEM HCL 60MG TABLET PO SCH ×2 (12:31→17:33)
[2018-06-17] VITALS (12 sets, daily range): BP systolic 99–139; BP diastolic 53–88
[2018-06-17] MEDS: DILTIAZEM HCL 60MG TABLET PO SCH ×5 (01:16→23:59)
[2018-06-17] MEDS: IPRATROPIUM BROMIDE (0.02%) 0.5MG/2.5ML NEB HHN SCH ×7 (01:19→23:59)
[2018-06-17] MEDS: LORAZEPAM 2MG/ML CPJ IV PRN ×2 (03:44→15:40)
[2018-06-17 07:23] LABS: CHLORIDE 118 mEq/L (98-107)
[2018-06-17 07:24] LABS: BASOPHILS % 0.3 % (0.0-2.0); EOSINOPHILS % 3.1 % (0.0-5.0); HEMATOCRIT. 33.9 % (36.0-48.0); HEMOGLOBIN. 10.1 g/dL (12.0-16.0); LYMPHOCYTES % 18.7 % (20.0-50.0); MEAN CORPUSCULAR HEMOGLOBIN 23.4 pg (28.0-32.0); MEAN CORPUSCULAR VOLUME 78.4 fL (81.0-99.0); MEAN PLATELET VOLUME 10.5 fl (7.4-10.4); MONOCYTES % 13.7 % (2.0-8.0); NEUTROPHILS % 64.2 % (40.0-76.0); PLATELET 198 x1000/uL (130-400); RED BLOOD CELL COUNT 4.33 mill/uL (4.2-5.4); RED CELL DISTRIBUTION WIDTH 19.6 % (11.6-14.6)
[2018-06-17] MEDS: ENOXAPARIN 60MG/0.6ML SYR SUBCUT SCH (09:00)
[2018-06-17] MEDS: CEFTRIAXONE 2 G in DEXTROSE 5% WATER 50 ML IV SCH (09:22)
[2018-06-17] MEDS: MULTIVITAMINS,THER W-MINERALS TABLET GT SCH (09:23)
[2018-06-17] MEDS: ZINC SULFATE 220 MG ( 50 ) CAPSULE GT SCH (09:23)
[2018-06-17] MEDS: ASCORBIC ACID 250 MG TABLET GT SCH ×2 (09:23→21:00)
[2018-06-17] MEDS: ACETAMINOPHEN 325MG TABLET PO PRN (09:23)
[2018-06-17] MEDS: LACTULOSE 20G/30ML UDC PO SCH (09:23)
[2018-06-17] MEDS: FAMOTIDINE 20MG/2ML VIAL IV SCH (09:24)
[2018-06-17] MEDS: QUETIAPINE FUMARATE 25MG TABLET PO SCH (09:24)
[2018-06-17] MEDS: ONDANSETRON HCL 4MG/2ML INJ IV PRN (09:24)
[2018-06-17] MEDS ORDERED: SODIUM BICARBONATE 4% (2.4MEQ) 5ML VIAL IV ONE (14:57)
[2018-06-17] MEDS ORDERED: PHENYTOIN SODIUM EXTENDED 100MG CAPSULE PO SCH (20:00)
[2018-06-18] VITALS (11 sets, daily range): BP systolic 92–123; BP diastolic 60–100
[2018-06-18] MEDS: LORAZEPAM 2MG/ML CPJ IV PRN ×3 (01:11→18:50)
[2018-06-18] MEDS: IPRATROPIUM BROMIDE (0.02%) 0.5MG/2.5ML NEB HHN SCH ×5 (04:47→20:10)
[2018-06-18] MEDS: DILTIAZEM HCL 60MG TABLET PO SCH ×4 (06:30→23:26)
[2018-06-18] MEDS: ENOXAPARIN 60MG/0.6ML SYR SUBCUT SCH (09:00)
[2018-06-18] MEDS: FAMOTIDINE 20MG/2ML VIAL IV SCH (09:00)
[2018-06-18] MEDS: ASCORBIC ACID 250 MG TABLET GT SCH ×2 (09:00→21:27)
[2018-06-18] MEDS: ZINC SULFATE 220 MG ( 50 ) CAPSULE GT SCH (09:00)
[2018-06-18] MEDS: QUETIAPINE FUMARATE 25MG TABLET PO SCH (09:01)
[2018-06-18] MEDS: MULTIVITAMINS,THER W-MINERALS TABLET GT SCH (09:01)
[2018-06-18] MEDS: LACTULOSE 20G/30ML UDC PO SCH (09:02)
[2018-06-18] MEDS: CEFTRIAXONE 2 G in DEXTROSE 5% WATER 50 ML IV SCH (09:02)
[2018-06-18 09:14] LABS: CHLORIDE 116 mEq/L (98-107)
[2018-06-18] MEDS: ONDANSETRON HCL 4MG/2ML INJ IV PRN ×2 (13:58→23:26)
[2018-06-18] MEDS: DEXT 5%/0.45% NACL 1000ML 1,000 ML IV SCH (21:28)
[2018-06-19] VITALS (12 sets, daily range): BP systolic 89–125; BP diastolic 30–86
[2018-06-19] MEDS: IPRATROPIUM BROMIDE (0.02%) 0.5MG/2.5ML NEB HHN SCH ×5 (00:40→19:29)
[2018-06-19] MEDS: LORAZEPAM 2MG/ML CPJ IV PRN ×2 (03:00→20:36)
[2018-06-19] MEDS: DILTIAZEM HCL 60MG TABLET PO SCH ×4 (05:45→23:51)
[2018-06-19 08:02] LABS: BASOPHILS % 0.5 % (0.0-2.0); EOSINOPHILS % 2.6 % (0.0-5.0); HEMOGLOBIN. 9.9 g/dL (12.0-16.0); LYMPHOCYTES % 20.3 % (20.0-50.0); MEAN CORPUSCULAR HEMOGLOBIN 23.9 pg (28.0-32.0); MEAN CORPUSCULAR VOLUME 77.3 fL (81.0-99.0); MEAN PLATELET VOLUME 11.1 fl (7.4-10.4); MONOCYTES % 13.8 % (2.0-8.0); NEUTROPHILS % 62.8 % (40.0-76.0); PLATELET 148 x1000/uL (130-400); RED BLOOD CELL COUNT 4.15 mill/uL (4.2-5.4); RED CELL DISTRIBUTION WIDTH 19.9 % (11.6-14.6)
[2018-06-19] MEDS: LACTULOSE 20G/30ML UDC PO SCH (09:00)
[2018-06-19] MEDS: MULTIVITAMINS,THER W-MINERALS TABLET GT SCH (09:57)
[2018-06-19] MEDS: ZINC SULFATE 220 MG ( 50 ) CAPSULE GT SCH (09:57)
[2018-06-19] MEDS: QUETIAPINE FUMARATE 25MG TABLET PO SCH (09:57)
[2018-06-19] MEDS: ASCORBIC ACID 250 MG TABLET GT SCH ×2 (09:57→20:37)
[2018-06-19] MEDS: ENOXAPARIN 60MG/0.6ML SYR SUBCUT SCH ×2 (09:58→20:37)
[2018-06-19] MEDS: CEFTRIAXONE 2 G in DEXTROSE 5% WATER 50 ML IV SCH (09:59)
[2018-06-19] MEDS: FAMOTIDINE 20MG/2ML VIAL IV SCH (09:59)
[2018-06-19] MEDS: DEXT 5%/0.45% NACL 1000ML 1,000 ML IV SCH ×2 (10:37→23:52)
[2018-06-19 11:38] LABS: CHLORIDE 117 mEq/L (98-107)
[2018-06-19 11:49] LABS: AMYLASE 175 IU/L (25-115)
[2018-06-20] VITALS (9 sets, daily range): BP systolic 92–118; BP diastolic 59–74
[2018-06-20] MEDS: IPRATROPIUM BROMIDE (0.02%) 0.5MG/2.5ML NEB HHN SCH ×5 (00:17→15:30)
[2018-06-20] MEDS: ONDANSETRON HCL 4MG/2ML INJ IV PRN (01:12)
[2018-06-20] MEDS: DILTIAZEM HCL 60MG TABLET PO SCH ×2 (05:25→11:39)
[2018-06-20] MEDS: LORAZEPAM 2MG/ML CPJ IV PRN (05:32)
[2018-06-20] MEDS: MULTIVITAMINS,THER W-MINERALS TABLET GT SCH (08:56)
[2018-06-20] MEDS: ZINC SULFATE 220 MG ( 50 ) CAPSULE GT SCH (08:56)
[2018-06-20] MEDS: FAMOTIDINE 20MG/2ML VIAL IV SCH (08:57)
[2018-06-20] MEDS: QUETIAPINE FUMARATE 25MG TABLET PO SCH (08:57)
[2018-06-20] MEDS: ASCORBIC ACID 250 MG TABLET GT SCH (08:57)
[2018-06-20] MEDS: ENOXAPARIN 60MG/0.6ML SYR SUBCUT SCH (08:58)
[2018-06-20] MEDS: CEFTRIAXONE 2 G in DEXTROSE 5% WATER 50 ML IV SCH (09:33)
[2018-06-20] MEDS: LACTULOSE 20G/30ML UDC PO SCH (09:41)
[2018-06-20 12:58] LABS: BG BASE EXCESS 0.4 mmol/L (-2.0-2.0); BG CARBOXYHEMOGLOBIN 0.4 % (0.5-1.5); BG DEOXYHEMOGLOBIN 1.7 % (0.0-5.0); BG FRACTION INSPIRED OXYGEN 35; BG HCO3 ACT 24.9 mmol/L (22.0-26.0); BG METHEMOGLOBIN 0.1 % (0.0-1.5); BG OXYGEN SATURATION 98.3 % (92.0-98.5); BG OXYHEMOGLOBIN 97.8 % (94.0-97.0); BG PCO2 39.8 mmHg (35.0-45.0); BG PH 7.415 (7.350-7.450); BG PO2 124.7 mmHg (75.0-100.0); BG SAMPLE SITE LEFT BRACHIAL; BG TIDAL VOLUME(mL) 600 mL; BG TOTAL HEMOGLOBIN 11.1 g/dL (12.0-18.0); BG VENT MODE VENT - A/C; BG VENT RATE 12 set
[2018-06-20] MEDS: DEXT 5%/0.45% NACL 1000ML 1,000 ML IV SCH (13:47)
== END 2018-06-20 15:45 | DRG 3 ==
LOC: ER 06:51 → MICUSO 13:17 → EDBEDREQSVC 13:21 → EDBEDREQ 13:21 → ENRESERV 14:05 → MICUNO 19:00 → 5EST 06-09 23:54 → MICUNO 06-12 03:53 → 5EST 06-13 22:50
PROVIDERS: ADMIT Internal Medicine; ATTEND Internal Medicine
PROC: 5A1955Z Respiratory Ventilation, Greater than 96 Consecutive Hours (ICD-10-PCS; principal; 2018-05-28)
PROC: 0B110F4 Bypass Trachea to Cutaneous with Tracheostomy Device, Open Approach (ICD-10-PCS; 2018-05-28)
PROC: 02HV33Z Insertion of Infusion Device into Superior Vena Cava, Percutaneous Approach (ICD-10-PCS; 2018-05-28)
PROC: B548ZZA Ultrasonography of Superior Vena Cava, Guidance (ICD-10-PCS; 2018-05-28)
PROC: 0GBJ0ZZ Excision of Thyroid Gland Isthmus, Open Approach (ICD-10-PCS; 2018-05-29)
PROC: 0W993ZZ Drainage of Right Pleural Cavity, Percutaneous Approach (ICD-10-PCS; 2018-06-01)
PROC: 0BH17EZ Insertion of Endotracheal Airway into Trachea, Via Natural or Artificial Opening (ICD-10-PCS; 2018-06-08)
PROC: 0DH63UZ Insertion of Feeding Device into Stomach, Percutaneous Approach (ICD-10-PCS; 2018-06-13)
PROC: 0W9G3ZZ Drainage of Peritoneal Cavity, Percutaneous Approach (ICD-10-PCS; 2018-06-18)
PROC: 0W993ZZ Drainage of Right Pleural Cavity, Percutaneous Approach (ICD-10-PCS; 2018-06-18)
DX: A40.3 Sepsis due to Streptococcus pneumoniae (principal); E43 Unspecified severe protein-calorie malnutrition; I50.21 Acute systolic (congestive) heart failure; J96.02 Acute respiratory failure with hypercapnia; R65.21 Severe sepsis with septic shock; G92 Toxic encephalopathy; I50.23 Acute on chronic systolic (congestive) heart failure; I63.9 Cerebral infarction, unspecified; J18.1 Lobar pneumonia, unspecified organism; N17.9 Acute kidney failure, unspecified; N39.0 Urinary tract infection, site not specified; J44.1 Chronic obstructive pulmonary disease with (acute) exacerbation; D68.9 Coagulation defect, unspecified; E87.2 Acidosis; I42.0 Dilated cardiomyopathy; I48.1 Persistent atrial fibrillation; K56.609 Unspecified intestinal obstruction, unspecified as to partial versus complete obstruction; E87.0 Hyperosmolality and hypernatremia; J44.0 Chronic obstructive pulmonary disease with (acute) lower respiratory infection; K43.9 Ventral hernia without obstruction or gangrene; B18.2 Chronic viral hepatitis C; D50.9 Iron deficiency anemia, unspecified; E78.5 Hyperlipidemia, unspecified; E87.6 Hypokalemia; E87.8 Other disorders of electrolyte and fluid balance, not elsewhere classified; F14.10 Cocaine abuse, uncomplicated; F17.200 Nicotine dependence, unspecified, uncomplicated; I08.1 Rheumatic disorders of both mitral and tricuspid valves; I11.0 Hypertensive heart disease with heart failure; I27.20 Pulmonary hypertension, unspecified; I48.2 Chronic atrial fibrillation; Z91.19 Patient's noncompliance with other medical treatment and regimen; R13.10 Dysphagia, unspecified; Z78.1 Physical restraint status; N28.1 Cyst of kidney, acquired; Z79.01 Long term (current) use of anticoagulants; Z99.81 Dependence on supplemental oxygen; Z88.0 Allergy status to penicillin; K29.40 Chronic atrophic gastritis without bleeding; E86.0 Dehydration; E07.9 Disorder of thyroid, unspecified; I77.810 Thoracic aortic ectasia; K31.9 Disease of stomach and duodenum, unspecified; K66.8 Other specified disorders of peritoneum; K80.20 Calculus of gallbladder without cholecystitis without obstruction; G62.9 Polyneuropathy, unspecified; K70.31 Alcoholic cirrhosis of liver with ascites
CPT/HCPCS: 32555; 36415; 36569; 36600; 70551; 71045; 71250; 74018; 76536; 76604; 76700; 76705; 76770; 76937; 80048; 80061; 80076; 80202; 80305; 82140; 82150; 82248; 82375; 82550; 82607; 82728; 82746; 82805; 82962; 83036; 83520; 83540; 83550; 83605; 83615; 83735; 83880; 84100; 84145; 84439; 84443; 84478; 84481; 84484; 86359; 86360; 86376; 87070; 87077; 87116; 87186; 87449; 87804; 93005; 93306; 93880; 93970; 94002; 94003; 94640; 96365; 96366; 96368; 96375; 99152; 99291; A6261; C1725; J0330; J0696; J1160; J1650; J1940; J1956; J2060; J2185; J2250; J2270; J2370; J2405; J2704; J3010; J3370; J3480; J3490; J7040; J7050; J7060; J7611; A4315; G0500